=== PATIENT | female | born 1945 | race Caucasian/White ===

== ENCOUNTER → 2016-09-09 | Outpatient (CLI) | payer OTHER, BC ==
[2016-09-09 13:14] LABS: ALT/SGPT 43 U/L (12-78); BLOOD UREA NITROGEN 16 mg/dl (7-18); BUN/CREATININE RATIO 17.4 (10-20); CALCIUM 9.7 mg/dl (8.5-10.1); CARBON DIOXIDE 32 mmol/L (21-32); CHLORIDE 96 mmol/L (98-107); CHOLESTEROL 279 mg/dl (0-200); CREATININE 0.89 mg/dl (0.60-1.20); GLUCOSE 202 mg/dl (70-99); POTASSIUM 3.6 mmol/L (3.5-5.1); SODIUM 136 mmol/L (136-145)
[2016-09-09 13:17] LABS: CHOLESTEROL/HDL RATIO 6.8; HDL CHOLESTEROL 41 mg/dl; LDL CHOLESTEROL CALCULATED 188 mg/dl; TRIGLYCERIDES 250 mg/dl (0-150); VERY LOW DENSITY LIPOPROT CALC 50 mg/dl
[2016-09-09 13:55] LABS: ESTIMATED AVERAGE GLUCOSE 180 mg/dl; HA1C FLAG Normal (Normal)
== END | disposition home or self-care (01) ==
LOC: C.LABMFLN 09:57
PROVIDERS: ATTEND Family Medicine
DX: M19.90 Unspecified osteoarthritis, unspecified site (principal); E11.9 Type 2 diabetes mellitus without complications; I10 Essential (primary) hypertension; E78.5 Hyperlipidemia, unspecified

== ENCOUNTER → 2016-12-01 | Outpatient (CLI) | payer OTHER, BC ==
[2016-12-01 14:23] LABS: BLOOD UREA NITROGEN 12 mg/dl (7-18); BUN/CREATININE RATIO 13.4 (10-20); CALCIUM 9.7 mg/dl (8.5-10.1); CARBON DIOXIDE 32 mmol/L (21-32); CHLORIDE 99 mmol/L (98-107); CHOLESTEROL 204 mg/dl (0-200); CREATININE 0.89 mg/dl (0.60-1.20); GLUCOSE 119 mg/dl (70-99); POTASSIUM 3.6 mmol/L (3.5-5.1); SODIUM 136 mmol/L (136-145); TRIGLYCERIDES 210 mg/dl (0-150); URIC ACID 4.8 mg/dl (2.6-7.2); VERY LOW DENSITY LIPOPROT CALC 42 mg/dl
[2016-12-01 14:26] LABS: HDL CHOLESTEROL 41 mg/dl; LDL CHOLESTEROL CALCULATED 121 mg/dl
== END | disposition home or self-care (01) ==
LOC: C.LABMFLN 11:12
PROVIDERS: ATTEND Family Medicine
DX: M10.9 Gout, unspecified (principal)

== ENCOUNTER → 2017-05-03 | Outpatient (CLI) | payer OTHER, BC ==
[2017-05-03 13:24] LABS: ESTIMATED AVERAGE GLUCOSE 151 mg/dl; HA1C FLAG Normal (Normal)
[2017-05-03 13:28] LABS: ALT/SGPT 32 U/L (12-78); BLOOD UREA NITROGEN 16 mg/dl (7-18); BUN/CREATININE RATIO 22.2 (10-20); CALCIUM 8.9 mg/dl (8.5-10.1); CARBON DIOXIDE 33 mmol/L (21-32); CHLORIDE 98 mmol/L (98-107); CREATININE 0.74 mg/dl (0.60-1.20); GLUCOSE 150 mg/dl (70-99); POTASSIUM 3.2 mmol/L (3.5-5.1); SODIUM 135 mmol/L (136-145)
[2017-05-03 13:39] LABS: CHOLESTEROL 193 mg/dl (0-200); CHOLESTEROL/HDL RATIO 4.3; HDL CHOLESTEROL 45 mg/dl; LDL CHOLESTEROL CALCULATED 104 mg/dl; TRIGLYCERIDES 221 mg/dl (0-150); VERY LOW DENSITY LIPOPROT CALC 44 mg/dl
== END | disposition home or self-care (01) ==
LOC: C.LABMFLN 08:02
PROVIDERS: ATTEND Family Medicine
DX: E11.9 Type 2 diabetes mellitus without complications (principal); I10 Essential (primary) hypertension; E78.5 Hyperlipidemia, unspecified

== ENCOUNTER → 2017-12-28 | Outpatient (CLI) | payer OTHER, BC ==
--- NOTE | 2017-12-29 14:35 | MAMMOGRAPHY REPORT ---
BILATERAL DIGITAL SCREENING MAMMOGRAM TOMOSYNTHESIS WITH CAD: 12/28/2017 CLINICAL HISTORY: Routine screening. Patient has no complaints. TECHNIQUE: The study was acquired using full field digital technology and interpreted from soft copy. Breast tomosynthesis in addition to standard 2D mammography was performed. Current study was also ev aluated with a Computer Aided Detection (CAD) system. COMPARISON: Comparison is made to exams dated: 02/25/2016 mammogram - [facility], mammogram, 04/07/2010 ultrasound, 04/06/2010 mammogram, 04/01/2009 mammogram, and 03/27/2007 m ammogram. BREAST COMPOSITION: The tissue of both breasts is almost entirely fatty. FINDINGS: No suspicious masses, calcifications, or areas of architectural distortion are noted in either breast . There has been no significant interval change compared to prior exams. IMPRESSION: ACR BI-RADS CATEGORY 1: NEGATIVE There is no mammographic evidence of malignancy. A 1 year screening mammogram is recommended.( 019) The patient will receive written notification of the results. Some breast cancers are not detected with mammography. A negative mammographic report should not robb y biopsy if a clinically suggestive mass is present. Natty Villar M.D. /:12/28/2017 14:56:39 Meat Passer: Kim Stockton, [facility] letter sent: Normal 1/2 BI-RADS Code: ACR BI-RADS Category 1: Negative
== END | disposition home or self-care (01) ==
LOC: C.MAMM 13:12
PROVIDERS: ATTEND Family Medicine
DX: Z12.31 Encounter for screening mammogram for malignant neoplasm of breast (principal)

== ENCOUNTER 2019-11-13 05:54 | Inpatient (IN) ==
[2019-11-13] MEDS ORDERED: MECLIZINE HCL 25 MG TAB PO STA (06:01)
[2019-11-13] MEDS ORDERED: ONDANSETRON INJ 2 MG/ML 2 ML VIAL IV STA (06:01)
--- NOTE | 2019-11-13 06:05 | Emergency Department Note ---
History of Present Illness General Chief complaint: Vertigo Stated complaint: dizzy Time Seen by Provider: 11/13/19 05:54 Source: patient Mode of arrival: EMS Limitations: no limitations History of Present Illness Provider complaint: Dizziness, vomiting Onset (ago): hour(s) 2 Location: head Radiation: non-radiation Severity: moderate Associated symptoms: + nausea/vomiting This is a 74-year-old female brought in by EMS from home. Patient states she got up to use the restroom at 4 AM and felt dizzy, with spinning. Patient sat back down immediately, denies trauma. Patient states she became nauseated and did vomit. Patient denies fevers or chills, headache. No prior diagnosis of vertigo. Patient states her blood sugar levels have been high. Patient denies any change in medications. No other dietary changes. No change in bowel or bladder function. Patient denies any recent illness. No known contact with any coronavirus positive individuals. Patient denies any falls or trauma both prior to the event as well as with the onset of dizziness tonight. Patient denies any recent sinusitis or URI symptoms. No recent pain in the ears or tinnitus. Patient also denies palpitations, chest pain, or trouble breathing. Pt seen during a time of high acuity and national emergency pandemic while wearing PPE. Home Medications Home Medications Medication Instructions Recorded Confirmed Type coenzyme Q10 100 mg capsule 100 mg PO BID #180 cap 11/06/18 11/13/19 Rx aspirin 81 mg tablet,delayed 81 mg PO DAILY tab 01/21/19 11/13/19 History release glimepiride 4 mg tablet 4 mg PO QAM #90 tab 02/05/19 11/13/19 Rx lisinopril 40 mg tablet 40 mg PO DAILY #90 tab 03/20/19 11/13/19 Rx cholecalciferol (vitamin D3) 25 2,000 units PO DAILY cap 05/06/19 11/13/19 History mcg (1,000 unit) capsule amlodipine 10 mg tablet 10 mg PO .evening #90 tab 07/23/19 11/13/19 Rx blood sugar diagnostic #100 ea 08/09/19 Rx sitagliptin 100 mg tablet 100 mg PO DAILY #90 tab 08/26/19 11/13/19 Rx chlorthalidone 25 mg tablet 25 mg PO DAILY #90 tab 11/04/19 11/13/19 Rx pravastatin 80 mg tablet 80 mg PO DAILY #30 tab 11/11/19 11/13/19 Rx meclizine 25 mg PO TID PRN #20 tab 11/13/19 Rx metformin 1,000 mg PO BID 11/13/19 11/13/19 History metoprolol tartrate 75 mg PO BID 11/13/19 11/13/19 History polyethylene glycol 3350 [Miralax] 17 gm PO UD PRN 11/13/19 11/13/19 History primidone 50 mg PO BID 11/13/19 11/13/19 History Allergies Allergy/AdvReac Type Severity Reaction Status Date / Time No Known Drug Allergies Allergy Unknown Verified 11/13/19 06:06 Past Med/Surg History Medical History Benign essential hypertension Chronic constipation (Inactive) Diabetes mellitus, type 2 Essential tremor (Acute) on primidone Gout no meds Hyperlipidemia Myalgia Osteoarthritis Vitamin D deficiency Surgical History History of colonoscopy History of right knee joint replacement History of tonsillectomy and adenoidectomy History of tooth extraction Ingrown toenail of right foot removal Social History (Updated 11/13/19 @ 10:43 by Hiro Nuñez) Preferred Language: Syriac Communication Ability: Effective Project Estimator Required: No Beliefs That Will Affect Care: None marital status: Current Living Situation: Spouse current occupational status: retired current occupation: did [employer] work in [employer] for 30 years Other Information That Helps Us Care for You: No other: 2 children Feels Safe at Home: Yes Safety Concerns: Feels Safe At This Time Smoking Status: Never smoker Second Hand Exposure: Yes ( smoked/father smoked) ; Hx Alcohol Use: No Hx Substance Use: No Review of Systems See HPI for pertinent positives & negatives. and A total of 10 systems reviewed and were otherwise negative Physical Exam Vital Signs Vital Signs - 24 hr 11/13/19 06:08 11/13/19 06:12 11/13/19 06:17 Temperature 37.2 C Temperature Source Oral Pulse Rate 89 Pulse Rate [Apical] 78 Pulse Rhythm [Apical] Regular Respiratory Rate 20 14 Respiratory Effort / Characteristics Non-Labored Respiratory Depth Normal Normal Blood Pressure 170/85 H Blood Pressure [Right Arm] 153/93 H Blood Pressure Mean 113 Blood Pressure Mean [Right Arm] 113 Pulse Oximetry 97 97 93 Oxygen Delivery Method Room Air Room Air Room Air Oxygen Flow Rate Sepsis Recent Fever Within 48 Hours No Sepsis Action Taken by Nursing No Action Required 11/13/19 06:33 11/13/19 07:07 11/13/19 08:17 Temperature Temperature Source Pulse Rate Pulse Rate [Apical] 79 75 80 Pulse Rhythm [Apical] Respiratory Rate 20 18 18 Respiratory Effort / Characteristics Non-Labored Spontaneous Respiratory Depth Normal Normal Blood Pressure Blood Pressure [Right Arm] 165/77 H 162/86 H 158/80 H Blood Pressure Mean Blood Pressure Mean [Right Arm] 106 111 106 Pulse Oximetry 97 99 93 Oxygen Delivery Method Nasal Cannula Nasal Cannula Room Air Oxygen Flow Rate 2 2 Sepsis Recent Fever Within 48 Hours Sepsis Action Taken by Nursing 11/13/19 09:11 11/13/19 10:11 Temperature Temperature Source Pulse Rate Pulse Rate [Apical] 86 85 Pulse Rhythm [Apical] Respiratory Rate 20 18 Respiratory Effort / Characteristics Non-Labored Spontaneous Respiratory Depth Normal Blood Pressure Blood Pressure [Right Arm] 167/85 H 162/84 H Blood Pressure Mean Blood Pressure Mean [Right Arm] 112 110 Pulse Oximetry 96 95 Oxygen Delivery Method Nasal Cannula Nasal Cannula Oxygen Flow Rate 2 2 Sepsis Recent Fever Within 48 Hours Sepsis Action Taken by Nursing GENERAL: alert, ill appearing, well nourished, no distress, non-toxic EYE EXAM: normal conjunctiva, PERRL and EOM's grossly intact, nystagmus OROPHARYNX: no exudate, no erythema, lips, buccal mucosa, and tongue normal and mucous membranes are moist NECK: supple, no nuchal rigidity, no adenopathy, non-tender LUNGS: Clear to auscultation. Normal chest wall mechanics, no w/r/r HEART: no murmurs, S1 normal and S2 normal ABDOMEN: abdomen soft, non-tender, normo-active bowel sounds, no masses, no rebound or guarding. BACK: Back is symmetrical on inspection and there is no deformity, no midline tenderness, no CVA tenderness. SKIN: no rashes and no bruising UPPER EXTREMITIES: upper extremities are grossly normal. FROM, nml pulses b/l. LOWER EXTREMITIES: No pitting edema. FROM, nml pulses b/l. NEURO EXAM: Normal sensorium, cranial nerves II-XII grossly intact, normal speech, no gross weakness of arms, no gross weakness of legs. Gross sensation intact. Course Course 0750: Patient reports feeling improved, able to ambulate to the bathroom with a steady gait. 0810: Patient updated on results. Awaiting completed mag infusion and repeat trop. If patient continues to be well-appearing, will plan for discharge with prescription for meclizine. 0827: Patient signed out to Dr. Contreras to follow-up repeat troponin. Patient's electrolytes were repleted. Patient was made aware of hyperglycemia. Patient continues to have a nonfocal neuro exam at bedside and states she feels improved after dose of meclizine. I feel that if second troponin is negative, a nd patient continues to be well-appearing and is able to ambulate with a steady gait and tolerate p.o., patient could be safely discharged. Administered Medications Acetaminophen (Tylenol) 650 mg PO Q4H PRN PRN Reason: Pain or Fever Stop: 12/13/19 13:28 Last Admin: 11/13/19 19:16 Dose: 650 mg Documented by: [id number] Amlodipine Besylate (Norvasc) 10 mg PO QPM [facility] Stop: 12/13/19 20:59 Last Admin: 11/13/19 21:43 Dose: 10 mg Documented by: [id number] Enoxaparin Sodium (Lovenox) 40 mg SQ DAILY@1400 [facility] Stop: 12/13/19 14:29 Last Admin: 11/13/19 15:37 Dose: 40 mg Documented by: [id number] Potassium Chloride/Sodium Chloride (Normal Saline W/20 Meq Kcl) 20 meq in 1,000 mls @ 100 mls/hr IV .Q10H [facility] Stop: 11/13/19 23:59 Last Admin: 11/13/19 14:38 Dose: 100 mls/hr Documented by: [id number] Insulin Aspart (Novolog Flexpen) 0 units SC ACHS [facility] Stop: 12/13/19 13:28 Last Admin: 11/13/19 21:41 Dose: Not Given Documented by: [id number] Cosigned by: [id number] Admin: 11/13/19 17:12 Dose: 3 units Documented by: [id number] Cosigned by: [id number] Admin: 11/13/19 14:29 Dose: 3 units Documented by: [id number] Cosigned by: [id number] Insulin Glargine (Lantus Solostar Pen) 10 units SC DAILY [facility] Stop: 12/13/19 13:59 Last Admin: 11/13/19 14:30 Dose: 10 units Documented by: [id number] Cosigned by: [id number] Metoprolol Tartrate (Lopressor) 75 mg PO BID [facility] Stop: 12/13/19 20:59 Last Admin: 11/13/19 21:43 Dose: 75 mg Documented by: [id number] Primidone (Primidone) 50 mg PO BID [facility] Stop: 12/13/19 20:59 Last Admin: 11/13/19 21:43 Dose: 50 mg Documented by: [id number] Scopolamine (Transderm-Scop) 1.5 mg TD Q72H [facility] Stop: 12/13/19 17:44 Last Admin: 11/13/19 19:16 Dose: 1.5 mg Documented by: [id number] Discontinued Medications Sodium Chloride (Nss 1000ml) 1,000 mls @ 250 mls/hr IV .Q4H [facility] Stop: 12/13/19 06:14 Last Infusion: 11/13/19 13:32 Dose: 0 mls/hr Documented by: [id number] Admin: 11/13/19 10:15 Dose: 250 mls/hr Documented by: [id number] Infusion: 11/13/19 10:15 Dose: 0 mls/hr Documented by: [id number] Admin: 11/13/19 06:15 Dose: 250 mls/hr Documented by: [id number] Magnesium Sulfate/Dextrose (Magnesium Sulfate / D5w) 1 gm in 100 mls @ 100 mls/hr IV Q1H [facility] Stop: 11/13/19 08:47 Last Infusion: 11/13/19 09:37 Dose: 0 mls/hr Documented by: [id number] Admin: 11/13/19 08:13 Dose: 100 mls/hr Documented by: [id number] Infusion: 11/13/19 08:03 Dose: 0 mls/hr Documented by: [id number] Admin: 11/13/19 07:03 Dose: 100 mls/hr Documented by: [id number] Ioversol (Optiray 320 125ml) 120 ml IV ONCE PRN PRN Reason: Interaction Checking Stop: 11/17/19 07:27 Last Admin: 11/13/19 07:28 Dose: 120 ml Documented by: [id number] Lorazepam (Ativan) 0.5 mg PO NOW STA Stop: 11/13/19 13:30 Last Admin: 11/13/19 14:44 Dose: 0.5 mg Documented by: [id number] Meclizine HCl (Antivert) 25 mg PO NOW STA Stop: 11/13/19 06:02 Last Admin: 11/13/19 06:16 Dose: 25 mg Documented by: [id number] Meclizine HCl (Antivert 25mg Home Pack) 1 homepack PO UD ONE Stop: 11/13/19 08:00 Last Admin: 11/13/19 08:12 Dose: 1 homepack Documented by: [id number] Meclizine HCl (Antivert) 12.5 mg PO Q6H [facility] Stop: 12/13/19 11:59 Last Admin: 11/13/19 19:16 Dose: 12.5 mg Documented by: [id number] Admin: 11/13/19 15:37 Dose: 12.5 mg Documented by: [id number] Ondansetron HCl (Zofran) 4 mg IV NOW STA Stop: 11/13/19 06:02 Last Admin: 11/13/19 06:16 Dose: 4 mg Documented by: [id number] Ondansetron HCl (Zofran Odt 4mg Home Pack) 1 homepack PO NOW ONE Stop: 11/13/19 08:00 Last Admin: 11/13/19 08:12 Dose: 1 homepack Documented by: [id number] Potassium Chloride (Klor-Con M20) 40 meq PO NOW STA Stop: 11/13/19 06:49 Last Admin: 11/13/19 07:03 Dose: 40 meq Documented by: [id number] Medical Decision Making Differential Diagnosis Differential diagnosis includes etiologies such as benign positional vertigo, dehydration, hypovolemia, anemia, tumor, infection, hypoglycemia, electrolyte abnormalities, cardiac sources, intracerebral event, toxicologic, neurologic, as well as others were entertained. Medical Records Attestation: I reviewed the patient's medical records. Home Medications Current Medication List: was personally reviewed by me Laboratory Data Attestation: I reviewed the patient's lab results. Result diagrams: 11/13/19 06:08 11/13/19 06:08 Lab Results 11/13/19 11/13/19 11/13/19 Range/Units 06:08 06:08 06:08 WBC 11.01 H (4.8-10.8) K/uL RBC 4.71 (4.2-5.4) M/uL Hgb 15.3 (12.0-16.0) g/dL Hct 44.3 (37-47) % MCV 94.1 (80-100) fL MCH 32.5 (25-34) pg MCHC 34.5 (32-36) g/dL RDW Std Deviation 44.4 (36.4-46.3) fL RDW Coeff of Stacy 12.9 (11.5-14.5) % Plt Count 276 (130-400) K/uL MPV 8.8 (7.4-10.4) fL Immature Gran % (Auto) 0.5 % Neut % (Auto) 76.5 % Lymph % (Auto) 14.8 % Barren % (Auto) 6.5 % Eos % (Auto) 1.5 % Baso % (Auto) 0.2 % Immature Gran # (Auto) 0.06 H (0.00-0.02) K/uL Neut # (Auto) 8.42 H (1.4-6.5) K/uL Lymph # (Auto) 1.63 (1.2-3.4) K/uL Barren # (Auto) 0.72 H (0.11-0.59) K/uL Eos # (Auto) 0.16 (0-0.5) K/uL Baso # (Auto) 0.02 (0-0.2) K/uL PT 10.3 (9.0-12.0) Seconds INR 1.0 (0.9-1.1) Sodium 137 (136-145) mmol/L Potassium 3.2 L (3.5-5.1) mmol/L Chloride 99 (98-107) mmol/L Carbon Dioxide 30 (21-32) mmol/L Anion Gap 8.0 (3-11) BUN 16 (7-18) mg/dl Creatinine 0.91 (0.6-1.2) mg/dl Est Cr Clr Drug Dosing 68.2 ml/min Est GFR ( Amer) 73.1 Est GFR (Non-Af Amer) 63.0 BUN/Creatinine Ratio 17.5 (10-20) Glucose 218 H (70-99) mg/dl Calcium 9.2 (8.5-10.1) mg/dl Magnesium 1.4 L (1.8-2.4) mg/dl Total Bilirubin 0.4 (0.2-1) mg/dl AST 36 (15-37) U/L ALT 60 (12-78) U/L Alkaline Phosphatase 53 (45-117) U/L Troponin I < 0.015 (0-0.045) ng/ml Total Protein 7.7 (6.4-8.2) gm/dl Albumin 3.3 L (3.4-5.0) gm/dl Globulin 4.4 H (2.5-4.0) gm/dl Albumin/Globulin Ratio 0.7 L (0.9-2) Lipase 223 (73-393) U/L TSH 3.950 (0.300-4.500) uIu/ml Urine Color Urine Appearance (Clear) Urine pH (4.5-7.5) Ur Specific [place] (1.000-1.030) Urine Protein (Negative) Urine Glucose (UA) (Negative) Urine Ketones (Negative) Urine Blood (Negative) Urine Nitrite (Negative) Urine Bilirubin (Negative) Urine Urobilinogen (Negative) Ur Leukocyte Esterase (Negative) Urine WBC (Auto) (0-5) /hpf Urine RBC (Auto) (0-4) /hpf U Hyaline Cast (Auto) (0-5) /lpf U Epithel Cells (Auto) (0-5) /lpf Urine Bacteria (Auto) (Negative) 11/13/19 11/13/19 Range/Units 07:40 08:34 WBC (4.8-10.8) K/uL RBC (4.2-5.4) M/uL Hgb (12.0-16.0) g/dL Hct (37-47) % MCV (80-100) fL MCH (25-34) pg MCHC (32-36) g/dL RDW Std Deviation (36.4-46.3) fL RDW Coeff of Stacy (11.5-14.5) % Plt Count (130-400) K/uL MPV (7.4-10.4) fL Immature Gran % (Auto) % Neut % (Auto) % Lymph % (Auto) % Barren % (Auto) % Eos % (Auto) % Baso % (Auto) % Immature Gran # (Auto) (0.00-0.02) K/uL Neut # (Auto) (1.4-6.5) K/uL Lymph # (Auto) (1.2-3.4) K/uL Barren # (Auto) (0.11-0.59) K/uL Eos # (Auto) (0-0.5) K/uL Baso # (Auto) (0-0.2) K/uL PT (9.0-12.0) Seconds INR (0.9-1.1) Sodium (136-145) mmol/L Potassium (3.5-5.1) mmol/L Chloride (98-107) mmol/L Carbon Dioxide (21-32) mmol/L Anion Gap (3-11) BUN (7-18) mg/dl Creatinine (0.6-1.2) mg/dl Est Cr Clr Drug Dosing ml/min Est GFR ( Amer) Est GFR (Non-Af Amer) BUN/Creatinine Ratio (10-20) Glucose (70-99) mg/dl Calcium (8.5-10.1) mg/dl Magnesium (1.8-2.4) mg/dl Total Bilirubin (0.2-1) mg/dl AST (15-37) U/L ALT (12-78) U/L Alkaline Phosphatase (45-117) U/L Troponin I < 0.015 (0-0.045) ng/ml Total Protein (6.4-8.2) gm/dl Albumin (3.4-5.0) gm/dl Globulin (2.5-4.0) gm/dl Albumin/Globulin Ratio (0.9-2) Lipase (73-393) U/L TSH (0.300-4.500) uIu/ml Urine Color Yellow Urine Appearance Clear (Clear) Urine pH 6.0 (4.5-7.5) Ur Specific [place] 1.019 (1.000-1.030) Urine Protein 1+ H (Negative) Urine Glucose (UA) 2+ H (Negative) Urine Ketones 1+ H (Negative) Urine Blood Trace H (Negative) Urine Nitrite Negative (Negative) Urine Bilirubin Negative (Negative) Urine Urobilinogen Negative (Negative) Ur Leukocyte Esterase Trace H (Negative) Urine WBC (Auto) 1-5 (0-5) /hpf Urine RBC (Auto) 0-4 (0-4) /hpf U Hyaline Cast (Auto) 0 (0-5) /lpf U Epithel Cells (Auto) 5-10 H (0-5) /lpf Urine Bacteria (Auto) Negative (Negative) Imaging Data Radiologist's Impression: UNENHANCED CT OF THE BRAIN; CT ANGIOGRAM OF THE BRAIN; CT ANGIOGRAM OF THE NECK CLINICAL HISTORY: Vomiting. Dizziness. COMPARISON STUDY: CT of the brain dated 05/20/2018. TECHNIQUE: Unenhanced axial CT scan of the brain is performed. Subsequently, following the IV administration of 120 of Optiray 320, CT angiogram of the head and neck was performed from the aortic arch to the vertex. Images are reviewed in the axial, sagittal, and coronal planes. 3-D MIPS images are created and assessed. IV contrast was administered without complication. All measurements were calculated based on NASCET criteria. A dose lowering technique was utilized adhering to the principles of ALARA. CT DOSE: 1184.88 mGy.cm FINDINGS: Brain parenchyma: An 11 mm calcification within the right parisi radiata is unchanged from 2018. There is age-related involutional change noting minimal subcortical and periventricular microangiopathic disease. There is no hemorrhage, mass effect, or evidence of acute territorial ischemia by CT criteria. There is no evidence of enhancing mass lesion on the angiogram phase images. The ventricles, sulci, and cisterns are normal in configuration. [place]- white matter differentiation is preserved. No extra-axial fluid collection is seen. Thoracic aorta: There is mild atherosclerotic calcification of the thoracic aorta. Visualized portions of the thoracic aorta are normal in caliber. The aortic arch demonstrates bovine variant anatomy. Right carotid arterial system: The right common carotid artery is widely patent, as are the right internal and external carotid arteries. Mild plaque is noted in the carotid bulb. There is tortuosity and mild ectasia of the distal internal carotid artery which measures up to 7 mm. Left carotid arterial system: The left common carotid artery is widely patent, as are the left internal and external carotid arteries. Mild plaque is noted in the carotid bulb. Vertebral arteries: The vertebral arteries are widely patent bilaterally and codominant. Subclavian arteries: Widely patent bilaterally. Intracranial vasculature: There is atherosclerotic calcification of the cavernous carotid and vertebral arteries. The internal carotid arteries are patent at the skull base, as are the anterior and middle cerebral arteries bilaterally. The vertebrobasilar system and posterior cerebral arteries are widely patent. The vertebral arteries are codominant. There is no aneurysm, high-grade stenosis, or focal vessel cut off seen throughout the intracranial circulation. Jugular veins: Patent bilaterally. Dural sinuses: Patent. Lung apices: Partially visualized upper lobe lung parenchyma appears clear. Soft tissues: The visualized pharyngeal soft tissues are normal in appearance noting angiographic phase technique. The oropharyngeal airway appears widely patent. There is a 10 mm nodule in the left lobe of the thyroid gland. The salivary glands are normal in appearance. No cervical lymphadenopathy is seen. Skeletal structures: The skeletal structures are osteopenic. The calvarium appears intact. The cervical spine is maintained noting multilevel spondylosis. No lytic or blastic lesion is seen. Sinuses and mastoids: The paranasal sinuses are clear. The mastoid air cells are well pneumatized. IMPRESSION: 1. There is no hemorrhage, mass effect, or evidence of acute territorial ischemia by CT criteria. 2. There is tortuosity and mild ectasia of the distal cervical portion of the right internal carotid artery. This is of doubtful significance. 3. Otherwise unremarkable CT angiogram of the neck. The carotid arteries are wid david patent bilaterally. 4. Unremarkable CT angiogram of the brain. ACT 112: Negative or not required by law. Electronically signed by: Yves Topete M.D. 11/13/2019 7:49 AM ECG Data Attestation: I personally reviewed and interpreted this ECG as follows: Indication: + other (dizzy) Rate (beats per minute): 86 Rhythm: + normal sinus ECG Intervals/blocks: + Normal QRS and + Normal QT ECG [place]: + Normal ECG ST segments: + Normal ST segments ECG Findings: + PVCs Blood Pressure Blood Pressure Findings: Elevated blood pressure Blood Pressure Disposition: Referred to patients primary care provider MANDIE To Patient here after abrupt onset of dizziness with nausea vomiting at home. No prior history of vertigo. Patient had a normal and nonfocal neuro exam at bedside despite persistent dizziness. No nystagmus noted. Patient had no other complaint of chest pain, palpitations, or trouble breathing. Patient was hemodynamically stable throughout. No ectopy or dysrhythmia noted on telemetry. Labs drawn and sent and initial results reassuring. Patient sent for CT imaging due to age, risk factors, and no prior vertigo diagnosis. CT imaging reassuring also. Patient continued to have a normal and nonfocal neuro exam at bedside despite complaints of dizziness. Patient treated with Zofran as well as meclizine. Patient's low potassium and magnesium were repleted. Patient signed out awaiting repeat troponin and repeat evaluation as a precaution. I suspected of troponin negative and patient continued to be well-appearing with a steady gait and tolerating p.o. she could be safely discharged. I did discuss with her close follow-up with her family doctor as a precaution, use of the meclizine at home, symptoms to watch and return for, I encouraged adherence to a diabetic diet and close follow-up regarding her hyperglycemia. No evidence of DKA or HHNK. At this time I do not suspect CVA, dissection, occult infectious etiology, cerebellar infarct/bleed/mass, ACS, dysrhythmia, aneurysm. An order was placed for continuous cardiac monitoring. The monitor shows a rate of _90 with normal sinus rhythm. Impression & Plan Dizziness, Nausea & vomiting, Hypomagnesemia, Hypokalemia Discharge Plan Visit Data *Final* Discharge Date/Time: 11/13/19 12:54 Chief Complaint: Vertigo Stated Complaint: dizzy Other Complaint: Vomiting ED Provider: Edgar Contreras Discharge Problem: Dizziness, Nausea & vomiting, Hypomagnesemia, Hypokalemia Patient Disposition: Admitted As Inpatient Condition: Good Discharge Instructions Interventions: ED Discharge Assessment Last Done: 11/13/19 12:54 Discharge Problem: Nausea & vomiting Qualifiers: Vomiting type: unspecified Vomiting Intractability: non-intractable Qualified Code(s): R11.2 - Nausea with vomiting, unspecified
[2019-11-13] MEDS: SODIUM CHLORIDE 0.9% 1000ML 1,000 ML IV SCH ×2 (06:15→10:15)
[2019-11-13 06:16] LABS: Basophils # (auto) 0.02 K/uL (0-0.2); Basophils % (auto) 0.2 %; Eosinophils # (auto) 0.16 K/uL (0-0.5); Eosinophils % (auto) 1.5 %; Hematocrit (blood only) 44.3 % (37-47); Hemoglobin 15.3 g/dL (12.0-16.0); Immature Granulocytes # (auto) 0.06 K/uL (0.00-0.02); Immature Granulocytes % (auto) 0.5 %; Lymphocytes # (auto) 1.63 K/uL (1.2-3.4); Lymphocytes % (auto) 14.8 %; Mean Corpuscular Hemoglobin 32.5 pg (25-34); Mean Corpuscular Hgb Conc 34.5 g/dL (32-36); Mean Corpuscular Volume 94.1 fL (80-100); Mean Platelet Volume 8.8 fL (7.4-10.4); Monocytes # (auto) 0.72 K/uL (0.11-0.59); Monocytes % (auto) 6.5 %; Neutrophils # (auto) 8.42 K/uL (1.4-6.5); Neutrophils % (auto) 76.5 %; Platelet Count 276 K/uL (130-400); RDW Coefficient of Variation 12.9 % (11.5-14.5); RDW Standard Deviation 44.4 fL (36.4-46.3); Red Blood Count 4.71 M/uL (4.2-5.4); White Blood Count 11.01 K/uL (4.8-10.8)
[2019-11-13 06:32] LABS: Prothrombin Time 10.3 Seconds (9.0-12.0)
[2019-11-13 06:33] LABS: Alanine Aminotransferase 60 U/L (12-78); Albumin Level 3.3 gm/dl (3.4-5.0); Aspartate Aminotransferase 36 U/L (15-37); BUN Creatinine Ratio 17.5 (10-20); Blood Urea Nitrogen 16 mg/dl (7-18); Calcium 9.2 mg/dl (8.5-10.1); Carbon Dioxide 30 mmol/L (21-32); Chloride 99 mmol/L (98-107); Creatinine Clr Calc Pharmacy 68.2 ml/min; Est GFR (African American) 73.1; Glucose 218 mg/dl (70-99); Lipase 223 U/L (73-393); Magnesium 1.4 mg/dl (1.8-2.4); Potassium 3.2 mmol/L (3.5-5.1); Sodium 137 mmol/L (136-145)
[2019-11-13 06:44] LABS: Albumin Globulin Ratio 0.7 (0.9-2); Alkaline Phosphatase 53 U/L (45-117); Bilirubin,Total 0.4 mg/dl (0.2-1); Globulin 4.4 gm/dl (2.5-4.0); Total Protein 7.7 gm/dl (6.4-8.2); Troponin I < 0.015 ng/ml (0-0.045)
[2019-11-13] MEDS ORDERED: POTASSIUM CHLORIDE 20 MEQ TABCR PO STA (06:48)
[2019-11-13] MEDS: MAGNESIUM SULFATE / D5W 1 GM/100 ML BAG IV SCH ×2 (07:03→08:13)
[2019-11-13] MEDS ORDERED: OPTIRAY 320 125ml IV PRN (07:28)
--- NOTE | 2019-11-13 07:50 | CT Scan Report ---
UNENHANCED CT OF THE BRAIN; CT ANGIOGRAM OF THE BRAIN; CT ANGIOGRAM OF THE NECK CLINICAL HISTORY: Vomiting. Dizziness. COMPARISON STUDY: CT of the brain dated 05/20/2018. TECHNIQUE: Unenhanced axial CT scan of the brain is performed. Subsequently, following the IV adminis tration of 120 of [address] 320, CT angiogram of the head and neck was performed from the aortic arch t o the vertex. Images are reviewed in the axial, sagittal, and coronal planes. 3-D MIPS images are cre ated and assessed. IV contrast was administered without complication. All measurements were calculate d based on NASCET criteria. A dose lowering technique was utilized adhering to the principles of ALA RA. CT DOSE: 1184.88 mGy.cm FINDINGS: Brain parenchyma: An 11 mm calcification within the right parisi radiata is unchanged from 2018. Ther e is age-related involutional change noting minimal subcortical and periventricular microangiopathic disease. There is no hemorrhage, mass effect, or evidence of acute territorial ischemia by CT criteri a. There is no evidence of enhancing mass lesion on the angiogram phase images. The ventricles, sulci , and cisterns are normal in configuration. Villeda-white matter differentiation is preserved. No extra- axial fluid collection is seen. Thoracic aorta: There is mild atherosclerotic calcification of the thoracic aorta. Visualized portion s of the thoracic aorta are normal in caliber. The aortic arch demonstrates bovine variant anatomy. Right carotid arterial system: The right common carotid artery is widely patent, as are the right int ernal and external carotid arteries. Mild plaque is noted in the carotid bulb. There is tortuosity an d mild ectasia of the distal internal carotid artery which measures up to 7 mm. Left carotid arterial system: The left common carotid artery is widely patent, as are the left graphic design intern al and external carotid arteries. Mild plaque is noted in the carotid bulb. Vertebral arteries: The vertebral arteries are widely patent bilaterally and codominant. Subclavian arteries: Widely patent bilaterally. Intracranial vasculature: There is atherosclerotic calcification of the cavernous carotid and vertebr al arteries. The internal carotid arteries are patent at the skull base, as are the anterior and midd le cerebral arteries bilaterally. The vertebrobasilar system and posterior cerebral arteries are wide ly patent. The vertebral arteries are codominant. There is no aneurysm, high-grade stenosis, or focal vessel cut off seen throughout the intracranial circulation. Jugular veins: Patent bilaterally. Dural sinuses: Patent. Lung apices: Partially visualized upper lobe lung parenchyma appears clear. Soft tissues: The visualized pharyngeal soft tissues are normal in appearance noting angiographic pha se technique. The oropharyngeal airway appears widely patent. There is a 10 mm nodule in the left lob e of the thyroid gland. The salivary glands are normal in appearance. No cervical lymphadenopathy is seen. Skeletal structures: The skeletal structures are osteopenic. The calvarium appears intact. The cervic al spine is maintained noting multilevel spondylosis. No lytic or blastic lesion is seen. Sinuses and mastoids: The paranasal sinuses are clear. The mastoid air cells are well pneumatized. IMPRESSION: 1. There is no hemorrhage, mass effect, or evidence of acute territorial ischemia by CT criteria. 2. There is tortuosity and mild ectasia of the distal cervical portion of the right internal carotid artery. This is of doubtful significance. 3. Otherwise unremarkable CT angiogram of the neck. The carotid arteries are widely patent bilaterall y. 4. Unremarkable CT angiogram of the brain. ACT 112: Negative or not required by law. Electronically signed by: Yves Topete M.D. 11/13/2019 7:49 AM
[2019-11-13] MEDS ORDERED: MECLIZINE HCL 25MG HOME PACK PO ONE (07:59)
[2019-11-13] MEDS ORDERED: ONDANSETRON HOME PACK 4MG OD TAB PO ONE (07:59)
[2019-11-13 08:07] LABS: Appearance Urine Clear (Clear); Bacteria Urine Automated Negative (Negative); Bilirubin Urine Negative (Negative); Blood Urine Trace (Negative); Cast Urine Automated 0 /lpf (0-5); Color Urine Yellow; Glucose Urine UA 2+ (Negative); Ketones Urine 1+ (Negative); Leukocyte Esterase Urine Trace (Negative); Nitrite Urine Negative (Negative); Protein Urine 1+ (Negative); RBC Urine Automated 0-4 /hpf (0-4); Specific Gravity Urine 1.019 (1.000-1.030); Urobilinogen Urine Negative (Negative)
--- NOTE | 2019-11-13 08:20 | Emergency Department Note ---
ED Visit Note Received patient in signout. History and Physical verfied by me. Pt is awaiting repeat troponin. Upon my reexamination patient is unable to ambulate due to dizziness. She was discussed with the hospitalist staff. . : Nausea & vomiting Qualifiers: Vomiting type: unspecified Vomiting Intractability: non-intractable Qualified Code(s): R11.2 - Nausea with vomiting, unspecified
--- NOTE | 2019-11-13 10:29 | History & Physical Report ---
Date of Service November 13, 2019 Assessment & Plan (1) Vertigo: Neurological exam is normal. Visual munoz are full, no ataxia of upper extremities or lower extremities with maneuvers. Minimal horizontal nystagmus. CT head and CTA head/neck negative. MRI brain to be obtained to rule out stroke to be complete. If negative then this is likely BPV or acute labrynthitis. Will place on scheduled meclizine 12.5mg q6h. If symptoms are refractory could trial scopalamine patch or ativan. PT consult for vestibular evaluation. Provide NS hydration. Place on telemetry. (2) Hypokalemia: likely 2nd to chronic diuretic usage. replace PO and IV. BMP in am. replace low mag. (3) Hypomagnesemia: likely 2nd to diuretic usage. s/p 2 grams mag sulfate in ER. recheck mag level in am. (4) Diabetes: hold oral agents except for januvia. place on lantus 10 units daily. consider giving this at discharge as patient's DM has been uncontrolled chronically (a1c 7.6% in September). novolog - correction factor 30; carb ratio 1:10. DM diet; BSGs ac/hs. (5) Hypercholesterolemia: LDL 103 in 04/2019. cont pravastatin. (6) Benign essential hypertension: while awaiting MRI brain allow some permissiveness in BP. if MRI is negative for stroke then resume all home BP meds. (7) Essential tremor: continue primidone. (8) Hypoxia: intermittently noted in ER, especially when asleep - MARLENE? in light of mild leukocytosis will check cxr to ensure no lung process. outpatient sleep study at minimum. (9) DVT prophylaxis: lovenox once daily place on observation status for now diet - allow full liquids in light of recent nausea/emesis; advance as tolerated IV fluids with NS History of Present Illness Chief Complaint: vertigo Primary Care Provider: Pool Calixto MD 74yo female with history of HTN and T2DM who presents with acute onset of vertigo beginning at 0430 this am. She woke up to go to bathroom and as soon as she stood up the room began to spin. The vertigo episode lasted a few minutes. Had nausea and vomiting with the vertigo. Sudden movements of her head brings on the vertigo. No visual field cuts. With attempts at walking she would feel like she was going to fall to the right. Over the last few days she has felt well. No fevers, chills, cough, congestion, nasal discharge, sore throat, loss of taste or smell, or sick contacts. No travel. Allergies Allergy/AdvReac Type Severity Reaction Status Date / Time No Known Drug Allergies Allergy Unknown Verified 11/13/19 06:06 Home Medications Home Medications Medication Instructions Recorded Confirmed Type coenzyme Q10 100 mg capsule 100 mg PO BID #180 cap 11/06/18 11/13/19 Rx aspirin 81 mg tablet,delayed 81 mg PO DAILY tab 01/21/19 11/13/19 History release glimepiride 4 mg tablet 4 mg PO QAM #90 tab 02/05/19 11/13/19 Rx lisinopril 40 mg tablet 40 mg PO DAILY #90 tab 03/20/19 11/13/19 Rx cholecalciferol (vitamin D3) 25 2,000 units PO DAILY cap 05/06/19 11/13/19 History mcg (1,000 unit) capsule amlodipine 10 mg tablet 10 mg PO .evening #90 tab 07/23/19 11/13/19 Rx blood sugar diagnostic #100 ea 08/09/19 Rx sitagliptin 100 mg tablet 100 mg PO DAILY #90 tab 08/26/19 11/13/19 Rx chlorthalidone 25 mg tablet 25 mg PO DAILY #90 tab 11/04/19 11/13/19 Rx pravastatin 80 mg tablet 80 mg PO DAILY #30 tab 11/11/19 11/13/19 Rx meclizine 25 mg PO TID PRN #20 tab 11/13/19 Rx metformin 1,000 mg PO BID 11/13/19 11/13/19 History metoprolol tartrate 75 mg PO BID 11/13/19 11/13/19 History polyethylene glycol 3350 [Miralax] 17 gm PO UD PRN 11/13/19 11/13/19 History primidone 50 mg PO BID 11/13/19 11/13/19 History Past Med/Surg History Medical History Benign essential hypertension Chronic constipation (Inactive) Diabetes mellitus, type 2 Essential tremor (Acute) on primidone Gout no meds Hyperlipidemia Myalgia Osteoarthritis Vitamin D deficiency Surgical History History of colonoscopy History of right knee joint replacement History of tonsillectomy and adenoidectomy History of tooth extraction Ingrown toenail of right foot removal Family History (Updated 11/13/19 @ 10:42 by Hiro Nuñez) Father , age 55 Family history of diabetes mellitus Myocardial infarction Mother Coronary heart disease had CABG and from post-op complications; age 64 Other No family history of adverse response to anesthesia Denies family history of Stroke Social History (Updated 11/13/19 @ 10:43 by Hiro Nuñez) Preferred Language: Swedish Communication Ability: Effective Radio Commentator Required: No Beliefs That Will Affect Care: None marital status: Current Living Situation: Spouse current occupational status: retired current occupation: did [employer] in [place] for 30 years Other Information That Helps Us Care for You: No other: 2 children Feels Safe at Home: Yes Safety Concerns: Feels Safe At This Time Smoking Status: Never smoker Second Hand Exposure: Yes ( smoked/father smoked) ; Hx Alcohol Use: No Hx Substance Use: No Review of Systems Constitutional: no fever, no chills, no anorexia and no weight loss Eyes: no worsening vision Ear, Nose, Mouth, Throat: no sore throat and no dysphagia Respiratory: no cough and no dyspnea Cardiovascular: no chest pain, no palpitations and no edema Gastrointestinal: + abdominal pain (LLQ - intermittent - with constipation ), + nausea and + vomiting; no diarrhea/loose stools Genitourinary: no dysuria Musculoskeletal: + joint pain (chronic - various joints) Integumentary: no rash Neurologic: + gait abnormality, + unsteadiness and + tremor(s); no localized weakness and no loss of sensation Psychiatric: + depression Endocrine: BSGs from DM -- high for "long time" Hematologic / Lymphatic: no easy bleeding and no easy bruising Physical Exam Constitutional: well developed and well nourished; no acute distress and no altered mental status Eyes: + anicteric sclerae and PERRL minimal horizontal nystagmus to the left; visual munoz full by direct confrontation ENMT: external ear and nose normal, oropharynx normal Ears: no TM abnormality Neck: trachea midline, no thyromegaly Respiratory: normal respiratory effort, lungs clear to auscultation Cardiovascular: Rate/Rhythm: regular rate and regular rhythm Heart Sounds: normal S1 and normal S2; no murmur Vessels: posterior tibial pulses present and dorsalis pedis pulses present; no JVD Extremities: no edema Gastrointestinal (Abdomen): normal bowel sounds, soft, nontender, no hepatosplenomegaly Musculoskeletal: no cyanosis or clubbing, extremities motor strength 5/5 Skin: no rashes, warm and dry Neurologic: CN's II-XI intact bilaterally, deep tendon reflexes 2+ bilaterally, plantar reflexes intact bilaterally, moves all extremities and awake; no focal motor deficits and not confused Speech / Cognition: normal speech Motor/Sensory: + tremor; no pronator drift Cranial Nerves: sense of smell intact, tongue midline, normal gag reflex and normal hearing Coordination: normal [id number] test heel-jackson maneuver without ataxia Psychiatric: A+Ox3, euthymic affect Lymphatic: no cervical lymphadenopathy Results & Data Results & Data ([facility]) Vital Signs (Past 12 Hours) Vital Signs Temp Pulse Pulse Resp BP BP Pulse Ox 11/13/19 10:11 85 18 162/84 H 95 11/13/19 09:11 86 20 167/85 H 96 11/13/19 08:17 80 18 158/80 H 93 11/13/19 07:07 75 18 162/86 H 99 11/13/19 06:33 79 20 165/77 H 97 11/13/19 06:17 78 14 153/93 H 93 11/13/19 06:12 97 11/13/19 06:08 37.2 C 89 20 170/85 H 97 Laboratory Results Laboratory Results - last 24 hr 11/13/19 11/13/19 11/13/19 06:08 06:08 06:08 WBC 11.01 H RBC 4.71 Hgb 15.3 Hct 44.3 MCV 94.1 MCH 32.5 MCHC 34.5 RDW Std Deviation 44.4 RDW Coeff of Stacy 12.9 Plt Count 276 MPV 8.8 Immature Gran % (Auto) 0.5 Neut % (Auto) 76.5 Lymph % (Auto) 14.8 Surry % (Auto) 6.5 Eos % (Auto) 1.5 Baso % (Auto) 0.2 Immature Gran # (Auto) 0.06 H Neut # (Auto) 8.42 H Lymph # (Auto) 1.63 Surry # (Auto) 0.72 H Eos # (Auto) 0.16 Baso # (Auto) 0.02 PT 10.3 INR 1.0 Sodium 137 Potassium 3.2 L Chloride 99 Carbon Dioxide 30 Anion Gap 8.0 BUN 16 Creatinine 0.91 Est Cr Clr Drug Dosing 68.2 Est GFR ( Amer) 73.1 Est GFR (Non-Af Amer) 63.0 BUN/Creatinine Ratio 17.5 Glucose 218 H Calcium 9.2 Magnesium 1.4 L Total Bilirubin 0.4 AST 36 ALT 60 Alkaline Phosphatase 53 Troponin I < 0.015 Total Protein 7.7 Albumin 3.3 L Globulin 4.4 H Albumin/Globulin Ratio 0.7 L Lipase 223 TSH 3.950 Urine Color Urine Appearance Urine pH Ur Specific Graham Urine Protein Urine Glucose (UA) Urine Ketones Urine Blood Urine Nitrite Urine Bilirubin Urine Urobilinogen Ur Leukocyte Esterase Urine WBC (Auto) Urine RBC (Auto) U Hyaline Cast (Auto) U Epithel Cells (Auto) Urine Bacteria (Auto) 11/13/19 11/13/19 07:40 08:34 WBC RBC Hgb Hct MCV MCH MCHC RDW Std Deviation RDW Coeff of Stacy Plt Count MPV Immature Gran % (Auto) Neut % (Auto) Lymph % (Auto) Surry % (Auto) Eos % (Auto) Baso % (Auto) Immature Gran # (Auto) Neut # (Auto) Lymph # (Auto) Surry # (Auto) Eos # (Auto) Baso # (Auto) PT INR Sodium Potassium Chloride Carbon Dioxide Anion Gap BUN Creatinine Est Cr Clr Drug Dosing Est GFR ( Amer) Est GFR (Non-Af Amer) BUN/Creatinine Ratio Glucose Calcium Magnesium Total Bilirubin AST ALT Alkaline Phosphatase Troponin I < 0.015 Total Protein Albumin Globulin Albumin/Globulin Ratio Lipase TSH Urine Color Yellow Urine Appearance Clear Urine pH 6.0 Ur Specific Graham 1.019 Urine Protein 1+ H Urine Glucose (UA) 2+ H Urine Ketones 1+ H Urine Blood Trace H Urine Nitrite Negative Urine Bilirubin Negative Urine Urobilinogen Negative Ur Leukocyte Esterase Trace H Urine WBC (Auto) 1-5 Urine RBC (Auto) 0-4 U Hyaline Cast (Auto) 0 U Epithel Cells (Auto) 5-10 H Urine Bacteria (Auto) Negative Diagnostic Findings CT head; CTA head/neck -- IMPRESSION: 1. There is no hemorrhage, mass effect, or evidence of acute territorial ischemia by CT criteria. 2. There is tortuosity and mild ectasia of the distal cervical portion of the right internal carotid artery. This is of doubtful significance. 3. Otherwise unremarkable CT angiogram of the neck. The carotid arteries are widely patent bilaterally. 4. Unremarkable CT angiogram of the brain. EKG - NSR, PVC, large R wave V2, no ST changes Code Status & VTE Plan Code Status full VTE Prophylaxis Plan VTE Prophylaxis will be ordered: Yes PG Care Time/CCT Total # of Minutes Spent Total Time Spent with Patient: Total time spent is greater than 50% in coordination of care (as documented) at patient's floor/unit and/or counseling patient: Coding Level of Care Code 41852 OBS Care - Level 3 Diagnoses Vertigo R42 Hypokalemia E87.6 Hypomagnesemia E83.42 Diabetes E11.9 Diabetes mellitus type: type 2 Diabetes mellitus director long term care insulin use: without custodial use Diabetes mellitus complication status: without complication Hypercholesterolemia E78.00 Benign essential hypertension I10 Essential tremor G25.0 Hypoxia R09.02 DVT prophylaxis Z29.9 (1) Diabetes Diabetes mellitus type: type 2 Diabetes mellitus director long term care insulin use: without director long term care use Diabetes mellitus complication status: without complication Qualified Code(s): E11.9 - Type 2 diabetes mellitus without complications
--- NOTE | 2019-11-13 13:18 | XRay Report ---
TWO VIEW CHEST CLINICAL HISTORY: Leukocytosis. Hypoxia. FINDINGS: AP and lateral chest radiographs are compared to study dated 05/20/2018. The AP view is deg raded by apical lordotic positioning. The heart is top normal for projection noting atherosclerotic c alcification of the thoracic aorta. The pulmonary vasculature is noncongested. Plate like atelectasis is present at both lung bases. No airspace consolidation or pleural effusion is seen. There is no pn eumothorax. The skeletal structures are osteopenic. The bony thorax appears intact. Moderate to advan bernadette degenerative change is seen in the shoulders. IMPRESSION: No active disease in the chest. ACT 112: Negative or not required by law. Electronically signed by: Yves Topete M.D. 11/13/2019 1:16 PM
[2019-11-13] MEDS ORDERED: LORazepam 0.5 MG TAB PO STA (13:29)
[2019-11-13] MEDS ORDERED: ONDANSETRON INJ 2 MG/ML 2 ML VIAL IV PRN (13:29)
[2019-11-13] MEDS ORDERED: POLYETHYLENE (MIRALAX) 17 GM PACK PO PRN (13:29)
[2019-11-13] MEDS ORDERED: ACETAMINOPHEN 325 MG TAB PO PRN (13:29)
[2019-11-13] MEDS ORDERED: GLUCAGON FOR INJ 1 MG VIAL IM PRN (14:00)
[2019-11-13] MEDS ORDERED: GLUCOSE 10 TABS/TUBE PO PRN (14:00)
[2019-11-13] MEDS ORDERED: GLUCOSE 40% GEL 15 GM TUBE PO PRN (14:00)
[2019-11-13] MEDS ORDERED: NSS + 20MEQ KCL 20 MEQ/1,000 ML BAG IV SCH (14:00)
[2019-11-13] MEDS ORDERED: CARBOHYDRATES FOR HYPOGLYCEMIA PO PRN (14:00)
[2019-11-13] MEDS ORDERED: DEXTROSE 50% 50 ML SYRINGE IV PRN (14:00)
[2019-11-13] MEDS: INSULIN ASPART 100 UNITS/ML 3 ML PEN SC SCH ×3 (14:29→21:41)
[2019-11-13] MEDS: INSULIN GLARGINE SOLOSTAR 100 UNITS/ML 3 ML PEN SC SCH (14:30)
--- NOTE | 2019-11-13 15:25 | Electrocardiogram Report ---
Test Reason : Blood Pressure : / mmHG Vent. Rate : 080 BPM Atrial Rate : 080 BPM P-R Int : 168 ms QRS Dur : 084 ms QT Int : 418 ms P-R-T Axes : 067 058 046 degrees QTc Int : 482 ms Poor data quality, interpretation may be adversely affected Sinus rhythm with occasional Premature ventricular complexes Nonspecific ST abnormality Abnormal ECG When compared with ECG of 20-MAY-2018 20:46, Premature ventricular complexes are now Present Confirmed by Doroteo Camacho ([id number]) on 11/13/2019 3:25:27 PM Referred By: REFERRED SELF Confirmed By:Tomas Camacho
--- NOTE | 2019-11-13 15:30 | Magnetic Resonance Report ---
MR brain wo con HISTORY: acute vertigo; eval for posterior circulation CVA TECHNIQUE: Multiplanar multisequence MRI of the brain was performed without the use of contrast. COMPARISON STUDY: CT 11/13/2019. CT 05/20/2018 FINDINGS: There are no areas of restricted diffusion to suggest acute infarction. The midline structu res are intact. The paranasal sinuses are clear. The mastoid air cells are clear. The ventricles and sulci are within normal limits for age. There is no mass, hematoma, midline shift. The major vascular flow-voids at the skull base are well maintained. The calcified nodule of the right posterior internet marketing coordinator al capsule has been present previous study. 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 There are components of age-related chronic small vessel changes throughout. IMPRESSION: 1. No evidence for an acute intracranial ischemic process. 2. Heavily calcified nodule right posterior internal capsule unchanged compared to several prior stud ies and most likely benign. 3. Age-related atrophy and chronic small vessel change. ACT 112: Negative or not required by law. The above report was generated using voice recognition software. It may contain grammatical, syntax or spelling errors. Electronically signed by: Thiago Toscano M.D. 11/13/2019 3:29 PM
[2019-11-13] MEDS: ENOXAPARIN INJ 40 MG/0.4 ML SYR SQ SCH (15:37)
[2019-11-13] MEDS: MECLIZINE 12.5 MG TAB PO SCH ×2 (15:37→19:16)
[2019-11-13] MEDS ORDERED: SCOPOLAMINE 1.5 MG TDSY TD SCH (17:45)
[2019-11-13] MEDS ORDERED: NON-FORMULARY MEDICATION (Coenzyme Q10 100 MG) PO SCH (21:00)
[2019-11-13] MEDS: AMLODIPINE BESYLATE 5 MG TAB PO SCH (21:43)
[2019-11-13] MEDS: PRIMIDONE 50 MG TAB PO SCH (21:43)
[2019-11-13] MEDS: METOPROLOL TARTRATE 25 MG TAB PO SCH (21:43)
[2019-11-14] MEDS: CHECK SCOPOLAMINE PATCH PLACEMENT SCH ×3 (00:20→16:00)
[2019-11-14] MEDS: MECLIZINE HCL 25 MG TAB PO PRN ×3 (01:24→16:00)
[2019-11-14 07:19] LABS: BUN Creatinine Ratio 13.2 (10-20); Calcium 8.9 mg/dl (8.5-10.1); Est GFR (African American) 95.4; Est GFR (Non-African American) 82.3; Magnesium 1.5 mg/dl (1.8-2.4); Potassium 3.6 mmol/L (3.5-5.1)
--- NOTE | 2019-11-14 08:22 | Hospitalist Progress Note ---
Date of Service November 14, 2019 Assessment & Plan (1) Vertigo: Neurological exam is normal. No nystagmus was seen in a.m. of 11/13 symptoms however were present subjectively CT head and CTA head/neck negative. MRI brain IMPRESSION: 1. No evidence for an acute intracranial ischemic process. 2. Heavily calcified nodule right posterior internal capsule unchanged compared to several prior studies and most likely benign. 3. Age-related atrophy and chronic small vessel change. likely BPV or acute labrynthitis. Patient is on scopolamine patch will be offered PRN meclizine PT consult for vestibular evaluation. (2) Hypokalemia: Replete (3) Hypomagnesemia: Replete (4) Diabetes: hold oral agents except for januvia.-> Will expect the patient to return to her oral medications at time of discharge if she tolerates her diet well may transition to oral agents prior to discharge place on lantus 10 units daily. novolog - correction factor 30; carb ratio 1:10. DM diet; BSGs ac/hs. (5) Hypercholesterolemia: LDL 103 in 04/2019. cont pravastatin. (6) Benign essential hypertension: resume all home BP meds. chlorthalidone, lisinopril, amlodipine, metoprolol (7) Essential tremor: continue primidone. (8) Hypoxia: intermittently noted in ER, especially when asleep - MARLENE? outpatient sleep study at minimum. Chest x-ray is unremarkable (9) DVT prophylaxis: lovenox once daily Patient compa in observation status is improved may be likely improved by 1 more day Admission and Anticipated Discharge Date Admission Date: November 13, 2019 Subjective pt states that she has returned to 40% of her baseline and feels the vertigo is much improved, she has no other issues and did tolerate her diet now to be advanced Review of Systems Review of Systems: Mild distress and fatigue no headache, blurry or double vision, does have some mild visual changes when she moves her head rapidly no speech or swallowing issues no chest pain, pressure or palpitations no shortness of breath, cough or wheezes no abdominal pain, nausea or vomiting, diarrhea or constipation no dysuria, hematuria or frequency no focal joint pain or swelling no back pain, CVA tenderness or radicular pain no bruising, bleeding or rashes no focal signs of weakness or numbness no complaints or anxiety or depression. Physical Exam Physical Exam: The patient appeared well nourished and normally developed. Vital signs as documented. Head exam is normocephalic atraumatic no scleral icterus, there is no nystagmus Neck is without JVD, thyromegaly, or carotid bruits. Lungs are clear to auscultation, no focal loss of breath sounds Cardiac exam, Rhythm is regular.. No murmurs, rubs or gallops. Abdominal exam reveals normal bowel sounds, soft non tender, no masses Extremities are nonedematous and both pedal pulses are normal. Neurologic exam is alert and oriented, no focal loss of strength or sensation Skin is without bruises or rashes Psychologically is without concerns for anxiety or depression Results & Data Results & Data ([facility]) Vital Signs (Past 12 Hours) Vital Signs Temp Pulse Pulse Resp BP BP Pulse Ox 11/14/19 08:04 98.4 F 70 18 155/78 H 90 11/14/19 07:30 66 11/14/19 03:46 98.2 F 66 20 118/73 92 11/14/19 00:17 77 11/13/19 23:34 98.4 F 71 20 119/73 94 PG Care Time/CCT Total # of Minutes Spent Total Time Spent with Patient: Total time spent is greater than 50% in coordi nation of care (as documented) at patient's floor/unit and/or counseling patient: Coding Level of Care Code 90410 Subseq Obs Care Lvl 2 Diagnoses Vertigo R42 Hypokalemia E87.6 Hypomagnesemia E83.42 Diabetes E11.9 Diabetes mellitus complication status: without complication Diabetes mellitus alf insulin use: without terminal clerk use Diabetes mellitus type: type 2 Hypercholesterolemia E78.00 Benign essential hypertension I10 Essential tremor G25.0 Hypoxia R09.02 DVT prophylaxis Z29.9 (1) Diabetes Diabetes mellitus complication status: without complication Diabetes mellitus alf insulin use: without terminal clerk use Diabetes mellitus type: type 2 Qualified Code(s): E11.9 - Type 2 diabetes mellitus without complications
[2019-11-14] MEDS: MAGNESIUM SULFATE / D5W 1 GM/100 ML BAG IV SCH (08:36)
[2019-11-14] MEDS: CHOLECALCIFEROL 1,000 UNITS 25 MCG TAB PO SCH (08:37)
[2019-11-14] MEDS: PRIMIDONE 50 MG TAB PO SCH ×2 (08:38→21:30)
[2019-11-14] MEDS: CHLORTHALIDONE 25 MG TAB PO SCH (08:38)
[2019-11-14] MEDS: lisinopriL 40 MG TAB PO SCH (08:38)
[2019-11-14] MEDS: ASPIRIN 81 MG ECTAB PO SCH (08:38)
[2019-11-14] MEDS: METOPROLOL TARTRATE 25 MG TAB PO SCH ×2 (08:38→21:29)
[2019-11-14] MEDS: INSULIN GLARGINE SOLOSTAR 100 UNITS/ML 3 ML PEN SC SCH (08:39)
[2019-11-14] MEDS: INSULIN ASPART 100 UNITS/ML 3 ML PEN SC SCH ×4 (08:39→22:27)
[2019-11-14] MEDS ORDERED: PRAVASTATIN SOD 40 MG TAB PO SCH (09:00)
[2019-11-14] MEDS: SITAGLIPTIN PHOSPHATE 100 MG TAB PO SCH (09:30)
[2019-11-14] MEDS: ENOXAPARIN INJ 40 MG/0.4 ML SYR SQ SCH (13:40)
[2019-11-14] MEDS: PRAVASTATIN SOD 40 MG TAB PO SCH (21:30)
[2019-11-14] MEDS: AMLODIPINE BESYLATE 5 MG TAB PO SCH (21:30)
[2019-11-15] MEDS: CHECK SCOPOLAMINE PATCH PLACEMENT SCH ×3 (00:08→17:15)
[2019-11-15] MEDS: ASPIRIN 81 MG ECTAB PO SCH (08:29)
[2019-11-15] MEDS: CHLORTHALIDONE 25 MG TAB PO SCH (08:29)
[2019-11-15] MEDS: PRIMIDONE 50 MG TAB PO SCH ×2 (08:30→21:06)
[2019-11-15] MEDS: lisinopriL 40 MG TAB PO SCH (08:30)
[2019-11-15] MEDS: CHOLECALCIFEROL 1,000 UNITS 25 MCG TAB PO SCH (08:30)
[2019-11-15] MEDS: SITAGLIPTIN PHOSPHATE 100 MG TAB PO SCH (08:30)
[2019-11-15] MEDS: METOPROLOL TARTRATE 25 MG TAB PO SCH ×2 (08:30→21:06)
[2019-11-15] MEDS: MECLIZINE HCL 25 MG TAB PO PRN ×2 (08:31→18:41)
[2019-11-15] MEDS: INSULIN ASPART 100 UNITS/ML 3 ML PEN SC SCH ×4 (08:35→21:05)
[2019-11-15] MEDS: INSULIN GLARGINE SOLOSTAR 100 UNITS/ML 3 ML PEN SC SCH (08:36)
[2019-11-15] MEDS: NITROFURANTOIN MONOHYDRATE 100 MG CAP PO SCH ×2 (10:11→21:06)
[2019-11-15] MEDS: ENOXAPARIN INJ 40 MG/0.4 ML SYR SQ SCH (12:07)
--- NOTE | 2019-11-15 14:59 | Hospitalist Progress Note ---
Date of Service November 15, 2019 Assessment & Plan (1) Vertigo: Neurological exam remains normal. No nystagmus, but still exacerbates her symptoms with movement CT head and CTA head/neck negative. MRI brain IMPRESSION: 1. No evidence for an acute intracranial ischemic process. 2. Heavily calcified nodule right posterior internal capsule unchanged compared to several prior studies and most likely benign. 3. Age-related atrophy and chronic small vessel change. likely BPV or acute labrynthitis. Patient is on scopolamine patch and continues PRN meclizine PT consult for vestibular evaluation. (2) Hypokalemia: Replete (3) Hypomagnesemia: Replete (4) Diabetes: hold oral agents except for januvia.-> Will expect the patient to return to her oral medications at time of discharge if she tolerates her diet well may transition to oral agents prior to discharge place on lantus 10 units daily. novolog - correction factor 30; carb ratio 1:10. DM diet; BSGs ac/hs. (5) Hypercholesterolemia: LDL 103 in 04/2019. cont pravastatin. (6) Benign essential hypertension: resume all home BP meds. chlorthalidone, lisinopril, amlodipine, metoprolol (7) Essential tremor: continue primidone. (8) Hypoxia: resolved outpatient sleep study may benefit pt Chest x-ray is unremarkable (9) DVT prophylaxis: lovenox once daily Patient compa in observation status is improved may be likely improved by 1 more day (10) Abnormal urinalysis: Pt has abnormal urinalysis , this maybe impacting her symptoms, check urine culture and started macrobid Admission and Anticipated Discharge Date Admission Date: November 13, 2019 Subjective pt states that she has returned to 60% of her baseline she still feels somewhat unstable with ambulation Review of Systems Review of Systems: Mild distress and fatigue no headache, blurry or double vision, does have some mild visual changes when she moves her head rapidly no speech or swallowing issues no chest pain, pressure or palpitations no shortness of breath, cough or wheezes no abdominal pain, nausea or vomiting, diarrhea or constipation no dysuria, hematuria or frequency no focal joint pain or swelling no back pain, CVA tenderness or radicular pain no bruising, bleeding or rashes no focal signs of weakness or numbness no complaints or anxiety or depression. Physical Exam Physical Exam: The patient appeared well nourished and normally developed. Vital signs as documented. Head exam is normocephalic atraumatic no scleral icterus, there is no nystagmus Neck is without JVD, thyromegaly, or carotid bruits. Lungs are clear to auscultation, no focal loss of breath sounds Cardiac exam, Rhythm is regular.. No murmurs, rubs or gallops. Abdominal exam reveals normal bowel sounds, soft non tender, no masses Extremities are nonedematous and both pedal pulses are normal. Neurologic exam is alert and oriented, no focal loss of strength or sensation Skin is without bruises or rashes Psychologically is without concerns for anxiety or depression Results & Data Results & Data ([facility]) Vital Signs (Past 12 Hours) Vital Signs Temp Pulse Pulse Resp BP BP Pulse Ox 11/15/19 11:13 98.1 F 68 18 146/74 H 176/74 H 95 11/15/19 09:11 71 11/15/19 08:13 99.0 F 69 18 134/79 93 11/15/19 04:00 97.7 F 65 20 117/71 92 PG Care Time/CCT Total # of Minutes Spent Total Time Spent with Patient: Total time spent is greater than 50% in coordination of care (as documented) at patient's floor/unit and/or counseling patient: Coding Level of Care Code 81677 Subseq Obs Care Lvl 2 Diagnoses Vertigo R42 Hypokalemia E87.6 Hypomagnesemia E83.42 Diabetes E11.9 Diabetes mellitus type: type 2 Diabetes mellitus long term care phlebotomist insulin use: without snf use Diabetes mellitus complication status: without complication Hypercholesterolemia E78.00 Benign essential hypertension I10 Essential tremor G25.0 Hypoxia R09.02 DVT prophylaxis Z29.9 Abnormal urinalysis R82.90 (1) Diabetes Diabetes mellitus type: type 2 Diabetes mellitus long term care phlebotomist insulin use: without snf use Diabetes mellitus complication status: without complication Qualified Code(s): E11.9 - Type 2 diabetes mellitus without complications
[2019-11-15] MEDS: PRAVASTATIN SOD 40 MG TAB PO SCH (21:06)
[2019-11-15] MEDS: AMLODIPINE BESYLATE 5 MG TAB PO SCH (21:06)
[2019-11-16] MEDS: CHECK SCOPOLAMINE PATCH PLACEMENT SCH ×2 (00:14→08:17)
[2019-11-16] MEDS: MECLIZINE HCL 25 MG TAB PO PRN ×2 (04:40→11:36)
[2019-11-16] MEDS: ASPIRIN 81 MG ECTAB PO SCH (08:18)
[2019-11-16] MEDS: CHLORTHALIDONE 25 MG TAB PO SCH (08:18)
[2019-11-16] MEDS: CHOLECALCIFEROL 1,000 UNITS 25 MCG TAB PO SCH (08:18)
[2019-11-16] MEDS: NITROFURANTOIN MONOHYDRATE 100 MG CAP PO SCH (08:18)
[2019-11-16] MEDS: METOPROLOL TARTRATE 25 MG TAB PO SCH (08:19)
[2019-11-16] MEDS: SITAGLIPTIN PHOSPHATE 100 MG TAB PO SCH (08:19)
[2019-11-16] MEDS: lisinopriL 40 MG TAB PO SCH (08:19)
[2019-11-16] MEDS: INSULIN GLARGINE SOLOSTAR 100 UNITS/ML 3 ML PEN SC SCH (08:22)
[2019-11-16] MEDS: INSULIN ASPART 100 UNITS/ML 3 ML PEN SC SCH ×2 (08:23→12:28)
[2019-11-16] MEDS: PRIMIDONE 50 MG TAB PO SCH (10:00)
--- NOTE | 2019-11-16 12:42 | Discharge Summary ---
Date of Service November 16, 2019 Admission HPI Per Admitting Provider 74yo female with history of HTN and T2DM who presents with acute onset of vertigo beginning at 0430 this am. She woke up to go to bathroom and as soon as she stood up the room began to spin. The vertigo episode lasted a few minutes. Had nausea and vomiting with the vertigo. Sudden movements of her head brings on the vertigo. No visual field cuts. With attempts at walking she would feel like she was going to fall to the right. Over the last few days she has felt well. No fevers, chills, cough, congestion, nasal discharge, sore throat, loss of taste or smell, or sick contacts. No travel. Principal Diagnosis vertigo abnormal ua but negative culture diabetes Discharge Exam The patient appeared well Vital signs as documented. 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 No nystagmus, but still exacerbates her symptoms with movement CT head and CTA head/neck negative. MRI brain IMPRESSION: 1. No evidence for an acute intracranial ischemic process. 2. Heavily calcified nodule right posterior internal capsule unchanged compared to several prior studies and most likely benign. 3. Age-related atrophy and chronic small vessel change. likely BPV or acute labyrinthitis. Patient is on scopolamine patch and continues PRN meclizine-> Rx given consider Kezia maneuver an outpt (2) Hypokalemia: Replete (3) Hypomagnesemia: Replete (4) Diabetes: Resume home oral medications of Januvia and metformin and glimepiride (5) Hypercholesterolemia: LDL 103 in 04/2019. cont pravastatin. (6) Benign essential hypertension: resume all home BP meds. chlorthalidone, lisinopril, amlodipine, metoprolol (7) Essential tremor: continue primidone. (8) Hypoxia: resolved outpatient sleep study may benefit pt Chest x-ray is unremarkable (9) Abnormal urinalysis: Pt has abnormal urinalysis urine culture has been negative will not discharge on antibiotics Total Time Total Time Spent Total Time Spent (In Minutes): It required greater than 30 minutes to prepare this patient for discharge Discharge Plan Discharge Items Patient Disposition: Home - Self-Care Reason For Visit: ACUTE VERTIGO Discharge Diagnosis: vertigo Condition on Discharge: Good Activity: Per Instructions section Activity Comment: please slowly increase activity Non-emergency contact: Primary Care Provider Call non-emergency contact if: you have any medication questions Follow-up/Referrals: Pool Calixto MD [Primary Care Provider] - Diet: Regular Addtl Attending Provider Instructions: please contact your primary care doctor for referrel to Physical therapy or audiology for consideration of the KEZIA maneuver we did test your urine here and we could not confirm infection so no antibiotic will be continued Pending Studies at Discharge: No Stand-Alone Forms: My [facility] [employer], Smoking Cessation Medications and DC Order Prescriptions: New meclizine 25 mg tablet 25 mg PO TID PRN (Reason: dizziness) Qty: 20 RF: 0 scopolamine base [Transderm-Scop] 1 mg over 3 days Patch 3 Day 1.5 mg transdermal Q72H Qty: 4 RF: 0 Continued lisinopril 40 mg tablet 40 mg PO DAILY Qty: 90 RF: 3 cholecalciferol (vitamin D3) [Vitamin D3] 25 mcg (1,000 unit) capsule 2,000 units PO DAILY RF: 0 Januvia 100 mg tablet 100 mg PO DAILY Qty: 90 RF: 1 chlorthalidone 25 mg tablet 25 mg PO DAILY Qty: 90 RF: 1 pravastatin 80 mg tablet 80 mg PO DAILY Qty: 30 RF: 2 aspirin [Aspir-81] 81 mg tablet,delayed release (DR/EC) 81 mg PO DAILY RF: 0 glimepiride 4 mg tablet 4 mg PO QAM Qty: 90 RF: 3 amlodipine 10 mg tablet 10 mg PO .evening Qty: 90 RF: 3 coenzyme Q10 100 mg capsule 100 mg PO BID Qty: 180 RF: 3 metformin 1,000 mg tablet 1,000 mg PO BID RF: 0 metoprolol tartrate 50 mg tablet 75 mg PO BID RF: 0 primidone 50 mg tablet 50 mg PO BID RF: 0 polyethylene glycol 3350 [Miralax] 17 gram powder in packet 17 gm PO UD PRN (Reason: Constipation) RF: 0 No Action (DME) Accu-Chek Amrita Plus test strp Strip See Dose Instructions .ROUTE .MEDSUPPLY Qty: 100 RF: 5 Discharge Orders: Discharge Order (Routine); Ordered 11/16/19 Ordered By: Micah Solano/Other Patient Handouts: Dizziness Vertigo and Balance Problems Diagnostic Tests, Vertigo Staying Safe Admission Data Admit Date/Time: 11/15/19 17:25 Attending Provider: Micah Mullins Admit Provider: Hiro Nuñez Primary Care Provider: Pool Calixto Other Providers: Hiro Nuñez Coding Level of Care Code D/C Day Management >30 mins Diagnoses Vertigo R42 Hypokalemia E87.6 Hypomagnesemia E83.42 Diabetes E11.9 Diabetes mellitus type: type 2 Diabetes mellitus half-way insulin use: without half-way use Diabetes mellitus complication status: without complication Hypercholesterolemia E78.00 Benign essential hypertension I10 Essential tremor G25.0 Hypoxia R09.02 Abnormal urinalysis R82.90
[2019-11-16] MEDS: ENOXAPARIN INJ 40 MG/0.4 ML SYR SQ SCH (15:15)
== END 2019-11-16 17:06 | disposition home or self-care (01) | DRG 149 ==
LOC: ED 05:54 → 2W 05:54 → SUATTDRO 11:04 → 2W 12:54

== ENCOUNTER 2022-03-01 14:13 | Observation (INO) ==
[2022-03-01 15:09] LABS: iSTAT Hemoglobin 17.3 g/dl (12.0-16.0); iSTAT Ionized Calcium 1.1 mmol/l (1.12-1.32); iSTAT Potassium 3.2 mmol/L (3.3-5.0)
[2022-03-01 15:13] LABS: Hematocrit (blood only) 46.9 % (34.1-44.9); Mean Corpuscular Hemoglobin 32.8 pg (25.0-34.0); Mean Corpuscular Hgb Conc 36.2 g/dL (32.0-36.0); Mean Corpuscular Volume 90.4 fL (80.0-100.0); Mean Platelet Volume 8.2 fL (9.4-12.3); Platelet Count 368 K/uL (130-400); RDW Coefficient of Variation 12.4 % (11.5-14.5); RDW Standard Deviation 41.1 fL (36.4-46.3); Red Blood Count 5.19 M/uL (3.93-5.22)
[2022-03-01 15:21] LABS: Partial Thromboplastin Ratio 0.9; Partial Thromboplastin Time 24.8 Seconds (21.0-31.0); Prothrombin Time 10.9 Seconds (9.0-12.0)
[2022-03-01] MEDS ORDERED: OPTIRAY 300 500mL IV ONE (15:26)
--- NOTE | 2022-03-01 15:35 | CT Scan Report ---
CT SCAN OF THE BRAIN WITHOUT IV CONTRAST CLINICAL HISTORY: Strokelike symptoms. COMPARISON STUDY: CT of the brain dated 11/13/2019. TECHNIQUE: Unenhanced axial CT scan of the brain is performed from the vertex to the skull base. A do se lowering technique was utilized adhering to the principles of ALARA. CT DOSE: 788.63 mGycm FINDINGS: Brain parenchyma: There is age-related involutional change noting mild subcortical and periventricula r microangiopathic disease. There is no hemorrhage, mass effect, or evidence of acute territorial isc hemia by CT criteria. A calcification in the right parisi radiata is unchanged from previous. Villeda-wh ite matter differentiation is preserved. No extra-axial fluid collection is seen. Ventricles, sulci, cisterns: Prominent secondary to involutional change. Intracranial vasculature: There is atherosclerotic calcification of the cavernous carotid and vertebr al arteries. Calvarium: Unremarkable. Sinuses and mastoids: The visualized paranasal sinuses are clear. The mastoid air cells are well pneu matized. Orbits: The bony orbits are grossly intact. There is a right ocular lens implant. IMPRESSION: There is no hemorrhage, mass effect, or evidence of acute territorial ischemia by CT jose adniel higgins. ACT 112: Negative or not required by law. Electronically signed by: Yves Topete M.D. 03/01/2022 3:33 PM
[2022-03-01 15:38] LABS: Albumin Globulin Ratio 1.2 (0.9-2); Albumin Level 4.1 gm/dl (3.4-5.0); Bilirubin,Total 0.6 mg/dl (0.2-1.0); Calcium 9.7 mg/dl (8.5-10.1); Creatinine Clr Calc Pharmacy 54.8 ml/min; Est GFR (African American) 64.3 ml/min; Est GFR (Non-African American) 55.5 ml/min; Globulin 3.3 gm/dl (2.5-4.0); Magnesium 1.5 mg/dl (1.7-2.4); Potassium 3.2 mmol/L (3.5-5.1); Total Protein 7.4 gm/dl (6.0-8.3)
--- NOTE | 2022-03-01 15:39 | CT Scan Report ---
CT angio head w con CLINICAL HISTORY: 76 years-old Female with cardenas confusion. Acute headache with confusion COMPARISON STUDY: Head CT of same day, brain MRI and head CT study 11/13/2019 TECHNIQUE: Following th e IV administration of 106 cc of Optiray, CT angiogram of the brain was performed from the skull base to the vertex. Images are reviewed in the axial, sagittal, and coronal planes. 3-D MIPS images are c reated and assessed. IV contrast was administered without complication. All measurements were obtaine d according to NASCET criteria. A dose lowering technique was utilized adhering to the principles of ALARA. CT DOSE: 1329.28 mGycm FINDINGS: The imaged bilateral internal carotid arteries are patent. The bilateral anterior and middle cerebral arteries are also patent. Developmentally diminutive right A1 segment. The vertebrobasilar system an d posterior cerebral arteries are widely patent. There is no aneurysm, high-grade stenosis, or proxim al branch occlusion identified. Dural sinuses appear patent. Unchanged 11 mm calcification within the right frontal lobe parisi radiata/posterior limb of the inte rnal capsule. Involutional changes with white matter hypodensities suggestive of chronic microvascular ischemic dis ease. IMPRESSION: Unremarkable CTA of the head. ACT 112: Negative or not required by law. The above report was generated using voice recognition software. It may contain grammatical, syntax o r spelling errors. Electronically signed by: Bubba Eckert M.D. 03/01/2022 3:38 PM
--- NOTE | 2022-03-01 15:44 | CT Scan Report ---
CT ANGIOGRAPHY OF THE NECK WITH CONTRAST CLINICAL HISTORY: Headache. Confusion. COMPARISON STUDY: CTA of the neck November 13, 2019. Technique: CT angiography of the carotid and vertebral arteries was obtained using Optiray and 3D rec onstruction on an independent workstation. NASCET criteria was utilized. Automated exposure control was utilized for the study. A dose lowering technique was utilized adhering to the principles of ALA RA. Findings: Visualized portions of the apices are unremarkable. There is no cervical lymphadenopathy. S everal thyroid nodules measure up to 1.7 cm. The bilateral common carotid, cervical internal carotid and vertebral arteries are patent. There is minimal plaque within the proximal right internal carotid artery without stenosis. Mild dilatation of the distal cervical right internal carotid artery is unc hanged. There is no dissection or aneurysm within the neck. IMPRESSION: No stenosis or dissection within the bilateral common carotid, cervical internal carotid or vertebral arteries. Minimal plaque. ACT 112: Negative or not required by law. Electronically signed by: Herrera Moffett M.D. 03/01/2022 3:43 PM
[2022-03-01 16:56] LABS: Appearance Urine Clear (Clear); Bacteria Urine Automated Negative (Negative); Bilirubin Urine Negative (Negative); Blood Urine Trace (Negative); Cast Urine Automated 0 /lpf (0-5); Color Urine Yellow; Epithelial Cell Urine Auto 20-30 /lpf (0-5); Glucose Urine UA Negative (Negative); Ketones Urine Negative (Negative); Leukocyte Esterase Urine 1+ (Negative); Nitrite Urine Negative (Negative); Protein Urine 1+ (Negative); RBC Urine Automated 0-4 /hpf (0-4); Specific Gravity Urine 1.023 (1.000-1.030); Urobilinogen Urine Negative (Negative)
--- NOTE | 2022-03-01 16:58 | History & Physical Report ---
Date of Service March 01, 2022 Assessment & Plan (1) Stroke-like symptoms: Plan: -Admit to med/tele -At the present time it is unknown if the patient's recent symptoms were caused by a potential stroke or TIA. Need to rule out other causes as well such as infection and dehydration -Initial workup including CT head and CT head/neck were negative for acute findings. Will obtain MRI of the brain, TTE, and lipid panel -Patient has been on aspirin and statin prior to these episodes -Chest xray negative for acute findings, leukocytosis could be due to recent episodes of vomiting, will follow-up with UA to rule out infection -Seizure precautions ordered, neuro consult ordered, PT/OT consuls ordered -AM CBC, BMP, and Mag (2) Nausea & vomiting: Plan: -Patient has been experiencing nausea and vomiting for the past 3 days, no diarrhea, has been without similar symptoms -Could be due to gastritis or possible gastroenteritis -Will order zofran, continue home pantoprazole, continue to monitor symptoms -Patient appears dehydrated on exam, will give a 1L Lactated Ringer's bolus now (3) Hypokalemia: Plan: -Noted to be 3.2 in the ED -Likely due to recent nausea and vomiting, as-well-as mag of 1.5 -Will give 10 meq IV KCL x 3 doses to prevent continued stomach irriation with PO -Monitor AM potassium (4) Hypomagnesemia: Plan: -Noted to be 1.5 today -Has a history of hypomagnesemia -Will give 1g mag-sulfate now -FU am BMP and mag levels (5) Diabetes: Plan: -Normally on 15 units Glargine in the am, daily Glimepiride weekly semaglutide -Had her am dose of Glargine this morning -Will continue with home Glargine and will start correction factor of 50 (6) Benign essential hypertension: Plan: -Continue amlodipine and lisinopril (7) Parkinson disease: Plan: -At baseline neurologic status per -Continue Pramipexole and primidone (8) Essential tremor: Plan: -Continue propranolol -Continue gabapentin for chronic BL neuropathy (9) Hypercholesterolemia: Plan: -Continue atorvaststin Plan The patient was discussed with Dr. Carvalho at the time of the admission History of Present Illness Chief Complaint: Stroke symptoms Primary Care Provider: MD Ratna Gastelum is a 76 year old female with a PMH significant for parkinsons's disease, essential tremor, DM II, hypokalemia, HTN, hypercholesterolemia, BPV, and BL leg pain who presented to the [facility] ED on 03/01/22 with concern's for stroke-like symptoms. Per the ED staff, the patient has been experiencing slurred speech/expressive aphasia since yesterday around noon. In the ED the patient was noted to be afebrile, hemodynamically stable, and stable on room air. Labs were remarkable for a leukocytosis of 11.7, potassium of 3.2 with a magnesium of 1.5, UA was in process at the time of admission. Chest xray was negative for acute findings. CT and CTA of the head were negative for acute findings. CTA of the neck showed "No stenosis or dissection within the bilateral common carotid, cervical internal carotid or vertebral arteries. Minimal plaque". The patient was not a candidate for TNK as her last well know was greater than 4 hours. We were asked to admit the patient to continue her stroke workup. At the time of the exam the patient was resting in bed in no acute distress with her sitting bedside. History was obtained from the patient and her . The patient has been experiencing nausea for the past three days. Yesterday, prior to her episodes of confusion the patient experienced approximately 4 episodes of non-bloody emesis. The patient also developed a frontal headahce, The patient's states that during this time and after the patient had intermittent episodes where she would not respond to him and "stare off" for moments. They deny any episodes of changes in vision, hearing, taste, or smell, convulsions, loss of bowel or bladder function, facial droop, or new weakness. She has a history of parkinson's disease and essential tremor. At baseline her right upper extremity has a more severe tremor than her left upper extremity. When asked, they state that they did not check her blood sugar yesterday or today. Her did give her her am dose of glargine this morning. They state that she has not been eating well over the past 3 days due to her nausea and vomiting. The patient and her deny any history of seizures and previous episodes similar to yesterday. She denies recent abdominal pain and dysuria but does note that her urine has been darker and foul-smelling. Per her , the patient appears to be back to her neurologic baseline at the time of the exam. Allergies Allergy/AdvReac Type Severity Reaction Status Date / Time No Known Drug Allergies Allergy Unknown Verified 03/01/22 17:27 Home Medications Medication Instructions Recorded Confirmed Type cholecalciferol (vitamin D3) 25 2,000 units PO DAILY 05/06/19 03/01/22 History mcg (1,000 unit) capsule (Vitamin D3) multivitamin (Daily Multi-Vitamin 1 tab PO DAILY 01/21/20 03/01/22 History tablet) lisinopril 40 mg tablet 40 mg PO DAILY #90 tabs 03/12/21 03/01/22 Rx lancets 33 gauge (OneTouch Delica #100 ea 07/16/21 10/12/21 Rx Lancets) flash glucose sensor (FreeStyle #1 ea 09/14/21 10/12/21 Rx Bianca 14 Day Sensor kit) flash glucose scanning reader #8 ea 11/05/21 Rx (FreeStyle Bianca 14 Day [place]) pen needle, diabetic 31 gauge x #50 ea 11/24/21 Rx 1/4" (Comfort EZ Pen [place]) propranolol 120 mg capsule,24 120 mg PO DAILY #90 caps 12/07/21 03/01/22 Rx hr,extended release atorvastatin 40 mg tablet 40 mg PO DAILY #90 tabs 12/08/21 03/01/22 Rx pramipexole 0.25 mg tablet See Rx Instructions .Route .COMPLEX 02/03/22 03/01/22 History primidone 50 mg tablet See Rx Instructions .Route .COMPLEX 02/03/22 03/01/22 History amlodipine 10 mg tablet 10 mg PO QPM 03/01/22 03/01/22 History aspirin 81 mg tablet,delayed 81 mg PO DAILY 03/01/22 03/01/22 History release diclofenac sodium 1 % topical gel 2 g topical QID PRN Pain 03/01/22 03/01/22 History (Arthritis Pain (diclofenac)) gabapentin 100 mg capsule 100 mg PO TID 03/01/22 03/01/22 History glimepiride 4 mg tablet 4 mg PO BID 03/01/22 03/01/22 History insulin glargine 100 unit/mL (3 15 unit subcut QAM 03/01/22 03/01/22 History mL) subcutaneous pen (Lantus Solostar U-100 Insulin) semaglutide 1 mg/dose (2 mg/1.5 1 mg subcut WK 03/01/22 03/01/22 History mL) subcutaneous pen injector Past Med/Surg History Medical History Benign essential hypertension Cataract (lens) fragments in eye following cataract surgery Chronic constipation Diabetes mellitus, type 2 Essential tremor on primidone Gout no meds Hyperlipidemia Myalgia Osteoarthritis Vitamin D deficiency Surgical History History of colonoscopy History of right knee joint replacement History of tonsillectomy and adenoidectomy History of tooth extraction Ingrown toenail of right foot removal Family History Father , age 55 Family history of diabetes mellitus Myocardial infarction Hypertension Mother Coronary heart disease had CABG and from post-op complications; age 64 Hypertension Other No family history of adverse response to anesthesia Denies family history of Stroke Social History Smoking Status: Never smoker Second Hand Exposure: No ( smoked/father smoked); Hx Alcohol Use: No Hx Substance Use: No Preferred Language: Canadian Communication Ability: Effective Hearing Ability: Normal Fireproof Door Maker Required: No Beliefs That Will Affect Care: None marital status: Current Living Situation: Spouse current occupational status: retired current occupation: did [employer] work in [place] for 30 years How many Children do You have: 2 other: 2 children Feels Safe at Home: Yes Safety Concerns: Feels Safe At This Time Seatbelt Use: always Sunscreen Use: No Assistive Devices: Glasses and Walker Review of Systems Review of Systems: Denies current fever, chills, headache, changes in vision, hearing, taste, and smell, chest pain, SOB, cough, abdominal pain, nausea, vomiting, diarrhea, hematemesis, melena, dysuria, hematuria, and recent falls. All systems have been reviewed and are otherwise negative. Physical Exam Physical Exam: Physical Exam: General: In no acute distress, stated age, chronically ill-appearing. HEENT: Normocephalic, atraumatic, no scleral icterus, pupils around round, symmetrical, and reactive to light, Dry mucus membranes, trachea midline, no thyromegaly Chest/Pulm: No respiratory distress, symmetrical chest expansion, clear breath sounds throughout Cardiac: RRR, no murmurs noted Abdomen: Negative for ascites and bruising, normoactive bowel sounds, soft, non-tender to palpation throughout Musculoskeletal: Symmetrical and without signs of acute trauma, upper and lower extremities with full ROM, Extremities: Radial, dorsalis pedis, and posterior tibial pulses are intact and symmetrical, no edema noted in the BL LE's Skin: Warm, dry, no rashes , lesions, or scars noted Neuro: Alert and oriented to person, place, month, year, and president, no focal defects, patient with baseline resting tremor with right upper extremity greater than left, CN II-XII tested and intact, Psych: No acute distress, calm and cooperative during the exam Results & Data Results & Data ([facility]) Vital Signs (Past 12 Hours) Vital Signs Temp Pulse Pulse Resp BP BP Pulse Ox 03/01/22 15:30 87 20 192/102 H 96 03/01/22 14:27 37 C 90 20 166/103 H 95 O2 Del Method 03/01/22 15:30 Room Air 03/01/22 14:27 Room Air Laboratory Results Abnormal lab results 03/01/22 03/01/22 03/01/22 Range/Units 14:48 14:48 14:56 WBC 11.70 H (4.8-10.8) K/ul Hgb 17.0 H (12.0-16.0) g/dl POC Hgb 17.3 H (12.0-16.0) g/dl Hct 46.9 H (34.1-44.9) % POC Hct 51 H (37-47) % MCHC 36.2 H (32.0-36.0) g/dL MPV 8.2 L (9.4-12.3) fL POC Sodium 133 L (135-144) mmol/L Sodium 133 L (136-145) mmol/L POC Potassium 3.2 L (3.3-5.0) mmol/L Potassium 3.2 L (3.5-5.1) mmol/L POC Chloride 92 L (101-112) mmol/L Chloride 92 L (98-107) mmol/L Glucose 185 H (70-99(Fasting)) mg/dl POC Glucose (other) 178 H (70-99) mg/dl POC Ioniz Calcium Van 1.10 L (1.12-1.32) mmol/l Magnesium 1.5 L (1.7-2.4) mg/dl Urine Protein (Negative) Urine Blood (Negative) Ur Leukocyte Esterase (Negative) Urine WBC (Auto) (0-5) /hpf U Epithel Cells (Auto) (0-5) /lpf 03/01/22 Range/Units 16:43 WBC (4.8-10.8) K/ul Hgb (12.0-16.0) g/dl POC Hgb (12.0-16.0) g/dl Hct (34.1-44.9) % POC Hct (37-47) % MCHC (32.0-36.0) g/dL MPV (9.4-12.3) fL POC Sodium (135-144) mmol/L Sodium (136-145) mmol/L POC Potassium (3.3-5.0) mmol/L Potassium (3.5-5.1) mmol/L POC Chloride (101-112) mmol/L Chloride (98-107) mmol/L Glucose (70-99(Fasting)) mg/dl POC Glucose (other) (70-99) mg/dl POC Ioniz Calcium Van (1.12-1.32) mmol/l Magnesium (1.7-2.4) mg/dl Urine Protein 1+ H (Negative) Urine Blood Trace H (Negative) Ur Leukocyte Esterase 1+ H (Negative) Urine WBC (Auto) 5-10 H (0-5) /hpf U Epithel Cells (Auto) 20-30 H (0-5) /lpf Diagnostic Findings Chest X-Ray 03/01/22 14:34 XR chest 1V portable CLINICAL HISTORY: stroke alert COMPARISON STUDY: Chest radiograph November 13, 2019. FINDINGS: No pneumothorax or pleural effusion is present. There is no consolidation to suggest pneumonia. Cardiomediastinal silhouette is stable. There is pulmonary vascular congestion without overt pulmonary edema. Severe osteoarthrosis of both glenohumeral joints is incidentally noted. IMPRESSION: Pulmonary vascular congestion without overt pulmonary edema. ACT 112: Negative or not required by law. Electronically signed by: Herrera Moffett M.D. 03/01/2022 4:[address] 03/01/22 14:34 CT SCAN OF THE BRAIN WITHOUT IV CONTRAST CLINICAL HISTORY: Strokelike symptoms. COMPARISON STUDY: CT of the brain dated 11/13/2019. TECHNIQUE: Unenhanced axial CT scan of the brain is performed from the vertex to the skull base. A dose lowering technique was utilized adhering to the principles of ALARA. CT DOSE: 788.63 mGycm FINDINGS: Brain parenchyma: There is age-related involutional change noting mild subcortical and periventricular microangiopathic disease. There is no hemorrhage, mass effect, or evidence of acute territorial ischemia by CT criteria. A calcification in the right parisi radiata is unchanged from previo us. Villeda-white matter differentiation is preserved. No extra-axial fluid collection is seen. Ventricles, sulci, cisterns: Prominent secondary to involutional change. Intracranial vasculature: There is atherosclerotic calcification of the cavernous carotid and vertebral arteries. Calvarium: Unremarkable. Sinuses and mastoids: The visualized paranasal sinuses are clear. The mastoid air cells are well pneumatized. Orbits: The bony orbits are grossly intact. There is a right ocular lens implant. IMPRESSION: There is no hemorrhage, mass effect, or evidence of acute territorial ischemia by CT criteria. ACT 112: Negative or not required by law. Electronically signed by: Yves Topete M.D. 03/01/2022 3:33 PM Head CTA 03/01/22 14:40 CT angio head w con CLINICAL HISTORY: 76 years-old Female with cardenas confusion. Acute headache with confusion COMPARISON STUDY: Head CT of same day, brain MRI and head CT study 11/13/2019 TECHNIQUE: Following the IV administration of 106 cc of Optiray, CT angiogram of the brain was performed from the skull base to the vertex. Images are reviewed in the axial, sagittal, and coronal planes. 3-D MIPS images are created and assessed. IV contrast was administered without complication. All measurements were obtained according to NASCET criteria. A dose lowering technique was utilized adhering to the principles of ALARA. CT DOSE: 1329.28 mGycm FINDINGS: The imaged bilateral internal carotid arteries are patent. The bilateral anterior and middle cerebral arteries are also patent. Developmentally d iminutive right A1 segment. The vertebrobasilar system and posterior cerebral arteries are widely patent. There is no aneurysm, high-grade stenosis, or proximal branch occlusion identified. Dural sinuses appear patent. Unchanged 11 mm calcification within the right frontal lobe parisi radiata/posterior limb of the internal capsule. Involutional changes with white matter hypodensities suggestive of chronic microvascular ischemic disease. IMPRESSION: Unremarkable CTA of the head. ACT 112: Negative or not required by law. The above report was generated using voice recognition software. It may contain grammatical, syntax or spelling errors. Electronically signed by: Bubba Eckert M.D. 03/01/2022 3:38 PM Neck CTA 03/01/22 14:40 CT ANGIOGRAPHY OF THE NECK WITH CONTRAST CLINICAL HISTORY: Headache. Confusion. COMPARISON STUDY: CTA of the neck November 13, 2019. Technique: CT angiography of the carotid and vertebral arteries was obtained using Optiray and 3D reconstruction on an independent workstation. NASCET criteria was utilized. Automated exposure control was utilized for the study. A dose lowering technique was utilized adhering to the principles of ALARA. Findings: Visualized portions of the apices are unremarkable. There is no cervical lymphadenopathy. Several thyroid nodules measure up to 1.7 cm. The bilateral common carotid, cervical internal carotid and vertebral arteries are patent. There is minimal plaque within the proximal right internal carotid artery without stenosis. Mild dilatation of the distal cervical right internal carotid artery is unchanged. There is no dissection or aneurysm within the neck. IMPRESSION: No stenosis or dissection within the bilateral common carotid, cervical internal carotid or vertebral arteries. Minimal plaque. ACT 112: Negative or not required by law. Electronically signed by: Herrera Moffett M.D. 03/01/2022 3:43 PM ECG Additional Comments: No ECG available at the time of admission, will obtain one now Code Status & VTE Plan Code Status Full Code VTE Prophylaxis Plan VTE Prophylaxis will be ordered: Yes Supervising Physician Co-Signing Physician Notes I personally saw and examined the patient. I verified all gudino points and agree with Edgar Dean PA-C with the following exceptions and/or additions: 76 year old female with generalized illness for 3 days - mainly nausea/vomiting at night. Dysphasia now resolved, present for < 24 hours. No stroke seen on brain MRI. O/E HS1+2, no murmurs, Chest CTAB, Abdo SNT, no focal neurology on exam, normal speech evaluation A/P Dysphasia - concerning for TIA given no stroke on MRI - continue TIA workup as above. Nausea/vomiting - unclear cause of this at night, no infective signs/symptoms. ?GERD on lying down. Will hold off treatment currently and see if it recurs. PG Care Time/CCT Total # of Minutes Spent Total Time Spent with Patient: Total time spent is greater than 50% in coordination of care (as documented) at patient's floor/unit and/or counseling patient: [place] [address] Initial Inpt Care Lvl 1 Patient Type Established Medical Decision Making Moderate Complexity Diagnoses Stroke-like symptoms R29.90 Nausea & vomiting R11.2 Vomiting Intractability: non-intractable Vomiting type: unspecified Hypokalemia E87.6 Hypomagnesemia E83.42 Diabetes E11.9 Diabetes mellitus complication status: without complication Diabetes mellitus nursing home insulin use: without nursing home use Diabetes mellitus type: type 2 Benign essential hypertension I10 Parkinson disease G20 Essential tremor G25.0 Hypercholesterolemia E78.00 (1) Diabetes Diabetes mellitus complication status: without complication Diabetes mellitus director long term care insulin use: without director long term care use Diabetes mellitus type: type 2 Qualified Code(s): E11.9 - Type 2 diabetes mellitus without complications (2) Nausea & vomiting Vomiting Intractability: non-intractable Vomiting type: unspecified Qualified Code(s): R11.2 - Nausea with vomiting, unspecified
--- NOTE | 2022-03-01 17:01 | XRay Report ---
XR chest 1V portable CLINICAL HISTORY: stroke alert COMPARISON STUDY: Chest radiograph November 13, 2019. FINDINGS: No pneumothorax or pleural effusion is present. There is no consolidation to suggest pneumo drea. Cardiomediastinal silhouette is stable. There is pulmonary vascular congestion without overt pul monary edema. Severe osteoarthrosis of both glenohumeral joints is incidentally noted. IMPRESSION: Pulmonary vascular congestion without overt pulmonary edema. ACT 112: Negative or not required by law. Electronically signed by: Herrera Moffett M.D. 03/01/2022 4:59 PM
[2022-03-01] MEDS ORDERED: LACTATED RINGER'S 1,000 ML IV ONE (17:33)
--- NOTE | 2022-03-01 18:28 | Magnetic Resonance Report ---
MRI OF THE BRAIN WITHOUT CONTRAST CLINICAL HISTORY: Confusion. Dysphasia. COMPARISON STUDY: Head CT and CTA of the head performed earlier today. MRI of the brain November 13, 2019 . TECHNIQUE: Utilizing a 1.5 Leyda magnet and dedicated coil, multiplanar, multiecho imaging of the bra in was performed without IV contrast. FINDINGS: There are no foci of restricted diffusion to suggest acute infarct. No acute intracranial h emorrhage, midline shift or mass effect is present. Ventricular system is unremarkable. Basal cistern s are patent. There are no extra axial collections. Flow-voids for the major intracranial vessels are present. A 1.3 cm focus with peripheral T2 hypointensity within the right parisi radiata corresponds to a calcified abnormality on CT. This is unchanged since prior exams. This is benign. White matter T2 hyperintense foci suggest small vessel disease. Calvarial signal is within normal limits. IMPRESSION: No acute intracranial findings. ACT 112: Negative or not required by law. Electronically signed by: Herrera Moffett M.D. 03/01/2022 6:26 PM
--- NOTE | 2022-03-01 19:12 | Emergency Department Note ---
History of Present Illness General Chief complaint: Stroke/CVA Symptoms Stated complaint: POSSIBLE MINI STROKE YESTERDAY Time Seen by Provider: 03/01/22 14:37 History of Present Illness Provider complaint: Headache confusion and aphasia Onset (ago): day(s) 2 Associated symptoms: + headaches; no chest pain, no cough, no nausea/vomiting or no shortness of breath 76-year-old female presents emergency department with for headache con fusion and aphasia. is providing history. states that her symptoms began at noon yesterday. He denies any falls or trauma. No fevers. No vomiting. Home Medications Medication Instructions Recorded Confirmed Type cholecalciferol (vitamin D3) 25 2,000 units PO DAILY 05/06/19 03/01/22 History mcg (1,000 unit) capsule (Vitamin D3) multivitamin (Daily Multi-Vitamin 1 tab PO DAILY 01/21/20 03/01/22 History tablet) lisinopril 40 mg tablet 40 mg PO DAILY #90 tabs 03/12/21 03/01/22 Rx lancets 33 gauge (OneTouch Delica #100 ea 07/16/21 10/12/21 Rx Lancets) flash glucose sensor (FreeStyle #1 ea 09/14/21 10/12/21 Rx Bianca 14 Day Sensor kit) flash glucose scanning reader #8 ea 11/05/21 Rx (FreeStyle Bianca 14 Day [place]) pen needle, diabetic 31 gauge x #50 ea 11/24/21 Rx 1/4" (Comfort EZ Pen [place]) propranolol 120 mg capsule,24 120 mg PO DAILY #90 caps 12/07/21 03/01/22 Rx hr,extended release atorvastatin 40 mg tablet 40 mg PO DAILY #90 tabs 12/08/21 03/01/22 Rx pramipexole 0.25 mg tablet See Rx Instructions .Route .COMPLEX 02/03/22 03/01/22 History primidone 50 mg tablet See Rx Instructions .Route .COMPLEX 02/03/22 03/01/22 History amlodipine 10 mg tablet 10 mg PO QPM 03/01/22 03/01/22 History aspirin 81 mg tablet,delayed 81 mg PO DAILY 03/01/22 03/01/22 History release diclofenac sodium 1 % topical gel 2 g topical QID PRN Pain 03/01/22 03/01/22 History (Arthritis Pain (diclofenac)) gabapentin 100 mg capsule 100 mg PO TID 03/01/22 03/01/22 History glimepiride 4 mg tablet 4 mg PO BID 03/01/22 03/01/22 History insulin glargine 100 unit/mL (3 15 unit subcut QAM 03/01/22 03/01/22 History mL) subcutaneous pen (Lantus Solostar U-100 Insulin) semaglutide 1 mg/dose (2 mg/1.5 1 mg subcut WK 03/01/22 03/01/22 History mL) subcutaneous pen injector Allergies Allergy/AdvReac Type Severity Reaction Status Date / Time No Known Drug Allergies Allergy Unknown Verified 03/01/22 17:27 Past Med/Surg History Medical History Benign essential hypertension Cataract (lens) fragments in eye following cataract surgery Chronic constipation Diabetes mellitus, type 2 Essential tremor on primidone Gout no meds Hyperlipidemia Myalgia Osteoarthritis Vitamin D deficiency Surgical History History of colonoscopy History of right knee joint replacement History of tonsillectomy and adenoidectomy History of tooth extraction Ingrown toenail of right foot removal Family History Father , age 55 Family history of diabetes mellitus Myocardial infarction Hypertension Mother Coronary heart disease had CABG and from post-op complications; age 64 Hypertension Other No family history of adverse response to anesthesia Denies family history of Stroke Social History Smoking Status: Never smoker Second Hand Exposure: No ( smoked/father smoked); Hx Alcohol Use: No Hx Substance Use: No Preferred Language: Bulgarian Communication Ability: Effective Hearing Ability: Normal Production Artist Required: No Beliefs That Will Affect Care: None marital status: Current Living Situation: Spouse current occupational status: retired current occupation: did [employer] work in [employer] for 30 years How many Children do You have: 2 other: 2 children Feels Safe at Home: Yes Seatbelt Use: always Sunscreen Use: No Assistive Devices: Glasses and Walker Review of Systems Unobtainable due to cognitive status Physical Exam Vital Signs Vital Signs - 24 hr 03/01/22 14:27 03/01/22 15:30 03/01/22 16:56 Temperature 37 C Temperature Source Temporal Artery Scan Pulse Rate 90 Pulse Rate [Apical] 87 92 H Pulse Rhythm [Apical] Regular Pulse Strength [Apical] Normal Respiratory Rate 20 20 20 Respiratory Effort / Characteristics Non-Labored Spontaneous Non-Labored Spontaneous Non-Labored Spontaneous Respiratory Depth Normal Normal Normal Respiratory Pattern Regular Regular Regular Blood Pressure 166/103 H Blood Pressure [Right Arm] 192/102 H 175/107 H Blood Pressure Mean 124 Blood Pressure Mean [Right Arm] 132 129 Blood Pressure Position [Right Arm] Semi-fowlers Semi-fowlers Pulse Oximetry 95 96 99 Oxygen Delivery Method Room Air Room Air Room Air Sepsis Recent Fever Within 48 Hours No Sepsis New/Unexplained Change in Mental Status No Sepsis Action Taken by Nursing No Action Required 03/01/22 19:32 Temperature Temperature Source Pulse Rate 89 Pulse Rate [Apical] Pulse Rhythm [Apical] Pulse Strength [Apical] Respiratory Rate 20 Respiratory Effort / Characteristics Respiratory Depth Respiratory Pattern Blood Pressure 163/105 H Blood Pressure [Right Arm] Blood Pressure Mean Blood Pressure Mean [Right Arm] Blood Pressure Position [Right Arm] Pulse Oximetry 98 Oxygen Delivery Method Room Air Sepsis Recent Fever Within 48 Hours Sepsis New/Unexplained Change in Mental Status Sepsis Action Taken by Nursing Physical Exam HENT: Exam performed. -Head: Normocephalic and atraumatic. -Right Ear: External ear normal. No mastoid tenderness. -Left Ear: External ear normal. No mastoid tenderness. -Mouth/Throat: The oropharynx is clear and moist. No trismus in the jaw. No dental abscesses or uvula swelling. No oropharyngeal exudate or tonsillar abscesses. EYES: Conjunctivae and EOM are normal. Pupils are equal, round, and reactive to light. Right eye exhibits no discharge. Left eye exhibits no discharge. No scleral icterus. NECK: Normal range of motion. Neck supple. No JVD present. No spinous process tenderness present. No carotid bruit present. No rigidity. CV: Normal rate, regular rhythm, normal heart sounds and intact distal pulses. There is no peripheral edema. Palpable radial pulses bue. PULM/CHEST: Effort normal and breath sounds normal. No respiratory distress. No stridor. She has no wheezes. She has no rales. ABD: The abdomen is soft. MUSC/SKEL: Pelvis stable. NEURO: Mild to moderate expressive aphasia. Course Course 1437: The patient was evaluated in room B6. A complete history and physical exam was performed Cardiac monitoring: An order was placed for continuous cardiac monitoring. The monitor shows a rate of 90 with sinus rhythm No code stroke called as the patient is well outside the window for TNKase. 1645: Vital signs stable. Labs are within normal limits with the exception of magnesium of 1.5. Magnesium will be repleted in the emergency department. CT and CT angios of the head and neck do not show any occlusion or infarct. [facility] Dr. Carvalho notified. Administered Medications Discontinued Medications Lactated Ringer's (Lr) 1,000 mls @ 999 mls/hr IV .Q1H1M ONE Stop: 03/01/22 18:33 Last Admin: 03/01/22 18:56 Dose: 999 mls/hr Documented By: LUIGI Ioversol (Optiray 300 500ml) 106 ml IV ONCE ONE Stop: 03/01/22 15:27 Last Admin: 03/01/22 15:27 Dose: 106 ml Documented By: MOI Medical Decision Making Laboratory Data Result diagrams: 03/01/22 14:48 03/01/22 14:48 Lab Results 03/01/22 03/01/22 03/01/22 Range/Units 14:48 14:48 14:48 WBC 11.70 H (4.8-10.8) K/ul RBC 5.19 (3.93-5.22) M/uL Hgb 17.0 H (12.0-16.0) g/dl POC Hgb (12.0-16.0) g/dl Hct 46.9 H (34.1-44.9) % POC Hct (37-47) % MCV 90.4 (80.0-100.0) fL MCH 32.8 (25.0-34.0) pg MCHC 36.2 H (32.0-36.0) g/dL RDW Std Deviation 41.1 (36.4-46.3) fL RDW Coeff of Stacy 12.4 (11.5-14.5) % Plt Count 368 (130-400) K/uL MPV 8.2 L (9.4-12.3) fL PT 10.9 (9.0-12.0) Seconds INR 1.0 (0.9-1.1) APTT 24.8 (21.0-31.0) Seconds PTT Ratio 0.9 POC Sodium (135-144) mmol/L Sodium 133 L (136-145) mmol/L POC Potassium (3.3-5.0) mmol/L Potassium 3.2 L (3.5-5.1) mmol/L POC Chloride (101-112) mmol/L Chloride 92 L (98-107) mmol/L Carbon Dioxide 30 (21-32) mmol/L POC Total CO2 (24-31) mmol/L Anion Gap 11 (3-11) POC Anion Gap (16-25) mmol/L POC BUN (7-18) mg/dl BUN 15 (6-23) mg/dl Creatinine 1.00 (0.6-1.2) mg/dl POC Creatinine (0.6-1.3) mg/dl Est Cr Clr Drug Dosing 54.8 ml/min Est GFR ( Amer) 64.3 ml/min Est GFR (Non-Af Amer) 55.5 ml/min BUN/Creatinine Ratio 15.0 (10-20) Glucose 185 H (70-99(Fasting)) mg/dl POC Glucose (other) (70-99) mg/dl Calcium 9.7 (8.5-10.1) mg/dl POC Ioniz Calcium Van (1.12-1.32) mmol/l Magnesium 1.5 L (1.7-2.4) mg/dl Total Bilirubin 0.6 (0.2-1.0) mg/dl AST 26 (13-39) U/L ALT 39 (7-52) U/L Alkaline Phosphatase 72 (34-104) U/L Total Protein 7.4 (6.0-8.3) gm/dl Albumin 4.1 (3.4-5.0) gm/dl Globulin 3.3 (2.5-4.0) gm/dl Albumin/Globulin Ratio 1.2 (0.9-2) Lipase 19 (11-82) U/L Urine Color Urine Appearance (Clear) Urine pH (4.5-7.5) Ur Specific [place] (1.000-1.030) Urine Protein (Negative) Urine Glucose (UA) (Negative) Urine Ketones (Negative) Urine Blood (Negative) Urine Nitrite (Negative) Urine Bilirubin (Negative) Urine Urobilinogen (Negative) Ur Leukocyte Esterase (Negative) Urine WBC (Auto) (0-5) /hpf Urine RBC (Auto) (0-4) /hpf U Hyaline Cast (Auto) (0-5) /lpf U Epithel Cells (Auto) (0-5) /lpf Urine Bacteria (Auto) (Negative) SARS-CoV-2, RNA, NAAT (NEGATIVE) 03/01/22 03/01/22 03/01/22 Range/Units 14:56 16:43 16:47 WBC (4.8-10.8) K/ul RBC (3.93-5.22) M/uL Hgb (12.0-16.0) g/dl POC Hgb 17.3 H (12.0-16.0) g/dl Hct (34.1-44.9) % POC Hct 51 H (37-47) % MCV (80.0-100.0) fL MCH (25.0-34.0) pg MCHC (32.0-36.0) g/dL RDW Std Deviation (36.4-46.3) fL RDW Coeff of Stacy (11.5-14.5) % Plt Count (130-400) K/uL MPV (9.4-12.3) fL PT (9.0-12.0) Seconds INR (0.9-1.1) APTT (21.0-31.0) Seconds PTT Ratio POC Sodium 133 L (135-144) mmol/L Sodium (136-145) mmol/L POC Potassium 3.2 L (3.3-5.0) mmol/L Potassium (3.5-5.1) mmol/L POC Chloride 92 L (101-112) mmol/L Chloride (98-107) mmol/L Carbon Dioxide (21-32) mmol/L POC Total CO2 29 (24-31) mmol/L Anion Gap (3-11) POC Anion Gap 16.0 (16-25) mmol/L POC BUN 15 (7-18) mg/dl BUN (6-23) mg/dl Creatinine (0.6-1.2) mg/dl POC Creatinine 1.0 (0.6-1.3) mg/dl Est Cr Clr Drug Dosing ml/min Est GFR ( Amer) ml/min Est GFR (Non-Af Amer) ml/min BUN/Creatinine Ratio (10-20) Glucose (70-99(Fasting)) mg/dl POC Glucose (other) 178 H (70-99) mg/dl Calcium (8.5-10.1) mg/dl POC Ioniz Calcium Van 1.10 L (1.12-1.32) mmol/l Magnesium (1.7-2.4) mg/dl Total Bilirubin (0.2-1.0) mg/dl AST (13-39) U/L ALT (7-52) U/L Alkaline Phosphatase (34-104) U/L Total Protein (6.0-8.3) gm/dl Albumin (3.4-5.0) gm/dl Globulin (2.5-4.0) gm/dl Albumin/Globulin Ratio (0.9-2) Lipase (11-82) U/L Urine Color Yellow Urine Appearance Clear (Clear) Urine pH 7.0 (4.5-7.5) Ur Specific [place] 1.023 (1.000-1.030) Urine Protein 1+ H (Negative) Urine Glucose (UA) Negative (Negative) Urine Ketones Negative (Negative) Urine Blood Trace H (Negative) Urine Nitrite Negative (Negative) Urine Bilirubin Negative (Negative) Urine Urobilinogen Negative (Negative) Ur Leukocyte Esterase 1+ H (Negative) Urine WBC (Auto) 5-10 H (0-5) /hpf Urine RBC (Auto) 0-4 (0-4) /hpf U Hyaline Cast (Auto) 0 (0-5) /lpf U Epithel Cells (Auto) 20-30 H (0-5) /lpf Urine Bacteria (Auto) Negative (Negative) SARS-CoV-2, RNA, NAAT NEGATIVE (NEGATIVE) Imaging Data Radiologist's Impression: Chest X-Ray 03/01/22 14:34 XR chest 1V portable CLINICAL HISTORY: stroke alert COMPARISON STUDY: Chest radiograph November 13, 2019. FINDINGS: No pneumothorax or pleural effusion is present. There is no consoli dation to suggest pneumonia. Cardiomediastinal silhouette is stable. There is pulmonary vascular congestion without overt pulmonary edema. Severe osteoarthrosis of both glenohumeral joints is incidentally noted. IMPRESSION: Pulmonary vascular congestion without overt pulmonary edema. ACT 112: Negative or not required by law. Electronically signed by: Herrera Moffett M.D. 03/01/2022 4:[address] 03/01/22 14:34 CT SCAN OF THE BRAIN WITHOUT IV CONTRAST CLINICAL HISTORY: Strokelike symptoms. COMPARISON STUDY: CT of the brain dated 11/13/2019. TECHNIQUE: Unenhanced axial CT scan of the brain is performed from the vertex to the skull base. A dose lowering technique was utilized adhering to the principles of ALARA. CT DOSE: 788.63 mGycm FINDINGS: Brain parenchyma: There is age-related involutional change noting mild subcortical and periventricular microangiopathic disease. There is no hemorrhage, mass effect, or evidence of acute territorial ischemia by CT criteria. A calcification in the right parisi radiata is unchanged from previous. Villeda-white matter differentiation is preserved. No extra-axial fluid collection is seen. Ventricles, sulci, cisterns: Prominent secondary to involutional change. Intracranial vasculature: There is atherosclerotic calcification of the cavernous carotid and vertebral arteries. Calvarium: Unremarkable. Sinuses and mastoids: The visualized paranasal sinuses are clear. The mastoid air cells are well pneumatized. Orbits: The bony orbits are grossly intact. There is a right ocular lens implant. IMPRESSION: There is no hemorrhage, mass effect, or evidence of acute territorial ischemia by CT criteria. ACT 112: Negative or not required by law. Electronically signed by: Yves Topete M.D. 03/01/2022 3:33 PM Head CTA 03/01/22 14:40 CT angio head w con CLINICAL HISTORY: 76 years-old Female with cardenas confusion. Acute headache with confusion COMPARISON STUDY: Head CT of same day, brain MRI and head CT study 11/13/2019 TECHNIQUE: Following the IV administration of 106 cc of Optiray, CT angiogram of the brain was performed from the skull base to the vertex. Images are reviewed in the axial, sagittal, and coronal planes. 3-D MIPS images are created and assessed. IV contrast was administered without complication. All measurements were obtained according to NASCET criteria. A dose lowering technique was utili zed adhering to the principles of ALARA. CT DOSE: 1329.28 mGycm FINDINGS: The imaged bilateral internal carotid arteries are patent. The bilateral anterior and middle cerebral arteries are also patent. Developmentally dimi nutive right A1 segment. The vertebrobasilar system and posterior cerebral arteries are widely patent. There is no aneurysm, high-grade stenosis, or proximal branch occlusion identified. Dural sinuses appear patent. Unchanged 11 mm calcification within the right frontal lobe parisi radiata/posterior limb of the internal capsule. Involutional changes with white matter hypodensities suggestive of chronic microvascular ischemic disease. IMPRESSION: Unremarkable CTA of the head. ACT 112: Negative or not required by law. The above report was generated using voice recognition software. It may contain grammatical, syntax or spelling errors. Electronically signed by: Bubba Eckert M.D. 03/01/2022 3:38 PM Neck CTA 03/01/22 14:40 CT ANGIOGRAPHY OF THE NECK WITH CONTRAST CLINICAL HISTORY: Headache. Confusion. COMPARISON STUDY: CTA of the neck November 13, 2019. Technique: CT angiography of the carotid and vertebral arteries was obtained us ing Optiray and 3D reconstruction on an independent workstation. NASCET criteria was utilized. Automated exposure control was utilized for the study. A dose lowering technique was utilized adhering to the principles of ALARA. Findings: Visualized portions of the apices are unremarkable. There is no cervical lymphadenopathy. Several thyroid nodules measure up to 1.7 cm. The bilateral common carotid, cervical internal carotid and vertebral arteries are patent. There is minimal plaque within the proximal right internal carotid artery without stenosis. Mild dilatation of the distal cervical right internal carotid artery is unchanged. There is no dissection or aneurysm within the neck. IMPRESSION: No stenosis or dissection within the bilateral common carotid, cervical internal carotid or vertebral arteries. Minimal plaque. ACT 112: Negative or not required by law. Electronically signed by: Herrera Moffett M.D. 03/01/2022 3:43 PM Brain MRI 03/01/22 16:48 MRI OF THE BRAIN WITHOUT CONTRAST CLINICAL HISTORY: Confusion. Dysphasia. COMPARISON STUDY: Head CT and CTA of the head performed earlier today. MRI of the brain November 13, 2019. TECHNIQUE: Utilizing a 1.5 Leyda magnet and dedicated coil, multiplanar, multiecho imaging of the brain was performed without IV contrast. FINDINGS: There are no foci of restricted diffusion to suggest acute infarct. No acute intracranial hemorrhage, midline shift or mass effect is present. Ventricular system is unremarkable. Basal cisterns are patent. There are no extra axial collections. Flow-voids for the major intracranial vessels are present. A 1.3 cm focus with peripheral T2 hypointensity within the right parisi radiata corresponds to a calcified abnormality on CT. This is unchanged since prior exams. This is benign. White matter T2 hyperintense foci suggest small vessel disease. Calvarial signal is within normal limits. IMPRESSION: No acute intracranial findings. ACT 112: Negative or not required by law. Electronically signed by: Herrera Moffett M.D. 03/01/2022 6:26 PM ECG Data Indication: + other (cva) Rate (beats per minute): 85 Rhythm: + normal sinus ECG Intervals/blocks: + Normal UT and + Normal QT-c ECG ST segments: + Normal ST segments Additional Comments: QRS 72 MDM Narrative 1437: The patient was evaluated in room B6. A complete history and physical exam was performed Cardiac monitoring: An order was placed for continuous cardiac monitoring. The monitor shows a rate of 90 with sinus rhythm No code stroke called as the patient is well outside the window for TNKase. 1645: Vital signs stable. Labs are within normal limits with the exception of magnesium of 1.5. Magnesium will be repleted in the emergency department. CT and CT angios of the head and neck do not show any occlusion or infarct. Patient will be admitted to the [facility] hospitalist team for CVA work-up Dr. Carvalho notified. Impression & Plan Hypomagnesemia, Expressive aphasia Discharge Plan Visit Data Chief Complaint: Stroke/CVA Symptoms Stated Complaint: POSSIBLE MINI STROKE YESTERDAY ED Provider: Todd Wade Discharge Problem: Hypomagnesemia, Expressive aphasia Patient Disposition: Home - Self-Care Discharge Instructions Interventions: ED Discharge Assessment Last Done: 03/01/22 19:32 Forms Stand Alone Forms: My [facility], Virtual Emergency Department, Important Visit Information Prescriptions Prescriptions: No Action cholecalciferol (vitamin D3) [Vitamin D3] 25 mcg (1,000 unit) capsule 2,000 units PO DAILY lisinopril 40 mg tablet 40 mg PO DAILY Qty: 90 3RF (DME) lancets [OneTouch Delica Lancets] 33 gauge misc See Rx Instructions .Route Qty: 100 3RF Rx Instructions: check once daily As directed DX:E11.9 (DME) FreeStyle Bianca 14 Day Sensor Kit See Rx Instructions .Route Qty: 1 5RF Rx Instructions: As directed Dx E11.9 (DME) FreeStyle Bianca 14 Day [place] Misc See Rx Instructions .Route Qty: 8 3RF Rx Instructions: As directed E11.9 (DME) pen needle, diabetic [Comfort EZ Pen [place]] 31 gauge x 1/4" needle See Rx Instructions .Route Qty: 50 3RF Rx Instructions: As directed propranolol 120 mg capsule,extended release 24 hr 120 mg PO DAILY Qty: 90 1RF atorvastatin 40 mg tablet 40 mg PO DAILY Qty: 90 1RF Hold Instructions: myalgias primidone 50 mg tablet See Rx Instructions .ROUTE .COMPLEX Rx Instructions: 1 po in am 3 po in PM; pramipexole 0.25 mg tablet See Rx Instructions .ROUTE .COMPLEX Rx Instructions: 0.25 mg orally ;1 po in am 2 po in pm; multivitamin [Daily Multi-Vitamin] Tablet 1 tab PO DAILY aspirin 81 mg Tablet,Delayed Release (Dr/Ec) 81 mg PO DAILY gabapentin 100 mg capsule 100 mg PO TID amlodipine 10 mg tablet 10 mg PO QPM glimepiride 4 mg tablet 4 mg PO BID Rx Instructions: Take 1 tablet by mouth twice daily insulin glargine [Lantus Solostar U-100 Insulin] 100 unit/mL (3 mL) insulin pen 15 unit subcut QAM diclofenac sodium [Arthritis Pain (diclofenac)] 1 % gel 2 g topical QID PRN (Reason: Pain) Rx Instructions: apply to single elbow, wrist or hand; for hand includes palm/fingers/back of hand semaglutide 1 mg/dose (2 mg/1.5 mL) pen injector 1 mg subcut WK Rx Instructions: TAKES ON SATURDAYS. Referrals Referrals: Pool Calixto MD [Primary Care Provider] - (Follow-up in 1-7 days.)
[2022-03-01] MEDS ORDERED: GLUCOSE 40% GEL 15 GM TUBE PO PRN (20:12)
[2022-03-01] MEDS ORDERED: ACETAMINOPHEN 325 MG TAB PO PRN (20:12)
[2022-03-01] MEDS ORDERED: DEXTROSE 50% 50 ML SYRINGE IV PRN (20:12)
[2022-03-01] MEDS ORDERED: MAGNESIUM SULFATE / D5W 1 GM/100 ML BAG IV ONE (20:12)
[2022-03-01] MEDS ORDERED: CARBOHYDRATES FOR HYPOGLYCEMIA PO PRN (20:12)
[2022-03-01] MEDS ORDERED: GLUCOSE 10 TAB/TUBE PO PRN (20:12)
[2022-03-01] MEDS ORDERED: PHARMACIST DISCHARGE MED REC CONSULT PRN (20:12)
[2022-03-01] MEDS ORDERED: GLUCAGON FOR INJ 1 MG VIAL SQ PRN (20:12)
[2022-03-01] MEDS ORDERED: PRAMIPEXOLE DIHYDROCHLO 0.5 MG TAB PO SCH (21:00)
[2022-03-01] MEDS ORDERED: ENOXAPARIN INJ 40 MG/0.4 ML SYR SQ SCH (21:00)
[2022-03-01] MEDS ORDERED: amLODIPine BESYLATE 5 MG TAB PO SCH (21:00)
[2022-03-01] MEDS ORDERED: PRIMIDONE 50 MG TAB PO SCH (21:00)
[2022-03-01 21:13] LABS: Chol HDL Ratio 5.7 (0-5)
[2022-03-01] MEDS: lisinopril 40 MG TAB PO SCH (22:08)
[2022-03-01] MEDS: GABAPENTIN 100 MG CAP PO SCH (22:08)
[2022-03-01] MEDS: ATORVASTATIN 40 MG TAB PO SCH (22:08)
[2022-03-01] MEDS: PROPRANOLOL HCL 60 MG LA CAP PO SCH (22:08)
[2022-03-01] MEDS: ASPIRIN 81 MG ECTAB PO SCH (22:09)
[2022-03-01] MEDS: INSULIN ASPART PER UNIT SC SCH (22:23)
[2022-03-01] MEDS: POTASSIUM CHLORIDE / WTR 10 MEQ/100 ML PLCT IV SCH (22:47)
[2022-03-02] MEDS: POTASSIUM CHLORIDE / WTR 10 MEQ/100 ML PLCT IV SCH ×2 (00:01→01:03)
[2022-03-02 07:28] LABS: Hematocrit (blood only) 42.9 % (34.1-44.9); Mean Corpuscular Hemoglobin 31.9 pg (25.0-34.0); Mean Corpuscular Volume 91.3 fL (80.0-100.0); Mean Platelet Volume 8.1 fL (9.4-12.3); Platelet Count 292 K/uL (130-400); RDW Coefficient of Variation 12.5 % (11.5-14.5); RDW Standard Deviation 41.4 fL (36.4-46.3); White Blood Count 8.86 K/ul (4.8-10.8)
[2022-03-02 08:25] LABS: BUN Creatinine Ratio 18.1 (10-20); Creatinine Clr Calc Pharmacy 66.1 ml/min; Est GFR (African American) 80.5 ml/min; Est GFR (Non-African American) 69.5 ml/min; Magnesium 1.7 mg/dl (1.7-2.4); Potassium 3.3 mmol/L (3.5-5.1)
--- NOTE | 2022-03-02 08:48 | Electrocardiogram Report ---
Test Reason : Blood Pressure : / mmHG Vent. Rate : 085 BPM Atrial Rate : 085 BPM P-R Int : 162 ms QRS Dur : 072 ms QT Int : 394 ms P-R-T Axes : 058 042 042 degrees QTc Int : 468 ms Poor data quality, interpretation may be adversely affected Normal sinus rhythm When compared with ECG of 13-NOV-2019 06:03, Premature ventricular complexes are no longer Present Confirmed by Doroteo Camacho ([id number]) on 03/02/2022 8:48:09 AM Referred By: Pool Calixto Confirmed By:Tomas Camacho
--- NOTE | 2022-03-02 08:57 | XCELERA ---
[id number]
[2022-03-02] MEDS: INSULIN ASPART PER UNIT SC SCH ×2 (08:58→11:46)
[2022-03-02] MEDS: ATORVASTATIN 40 MG TAB PO SCH (09:00)
[2022-03-02] MEDS ORDERED: PRIMIDONE 50 MG TAB PO SCH (09:00)
[2022-03-02] MEDS ORDERED: PRAMIPEXOLE DIHYDROCHLO 0.25 MG TAB PO SCH (09:00)
[2022-03-02] MEDS ORDERED: LANTUS PER UNIT CHARGE SQ SCH (09:00)
[2022-03-02] MEDS ORDERED: POTASSIUM CHLORIDE CRTAB 20 MEQ TABCR PO SCH (09:00)
[2022-03-02] MEDS ORDERED: MULTIVITAMIN TAB PO SCH (09:00)
[2022-03-02] MEDS: lisinopril 40 MG TAB PO SCH (09:01)
[2022-03-02] MEDS: PROPRANOLOL HCL 60 MG LA CAP PO SCH (09:01)
[2022-03-02] MEDS: GABAPENTIN 100 MG CAP PO SCH (09:01)
[2022-03-02] MEDS: ASPIRIN 81 MG ECTAB PO SCH (09:02)
--- NOTE | 2022-03-02 12:52 | Neurology Consultation ---
Date of Consultation March 02, 2022 Assessment & Plan (1) TIA (transient ischemic attack): (2) Cerebral cavernoma: (3) Benign essential hypertension: (4) Diabetic neuropathy: Plan 76-year-old female with an incidental heavily calcified cavernoma within the right parisi radiata, asymmetric benign essential tremor, right greater than left hand, and diabetic peripheral neuropathy, presenting with an episode of of expressive aphasia, without associated hemiparesis or other acute neurologic symptoms. Her CT angiography of the head and neck are unremarkable, without evidence of significant vascular lesion. Patient's echocardiogram unremarkable as well, no cardioembolic source. She does not have a known history of atrial fibrillation. She does have several stroke risk factors, however, including hypertension, hyperlipidemia, and insulin-dependent diabetes mellitus. Her daily low-dose aspirin and atorvastatin have been continued. However, I would recommend adding clopidogrel 75 mg/day for 3 weeks, followed by transition to clopidogrel monotherapy for secondary stroke risk reduction going forward. Would also recommend 14 or 30-day mobile cardiac outpatient telemetry. I would not make any changes in this patient's primidone or pramipexole. (See below regarding pramipexole.) I do not think she has Parkinson's disease, however. She does follow with Dr. Barnard, a neurologist in [place], and may continue to do so after discharge. I see that she is on propranolol as well, this medication may be for both her tremor as well as for management of hypertension. She may continue with this medication. I also note that she has been experiencing nausea and vomiting for the past few days. Although this symptom may be related to gastroenteritis, would also consider discontinuing her Mirapex as this medication may sometimes provoke nausea. History of Present Illness Reason for Consultation: Strokelike symptoms Requesting Physician: Edgar Dean PA-C Attending Physician: Micah Mullins MD History of Present Illness The patient is a 76-year-old female with a chief complaint of word finding difficulty and headache beginning acutely on February 28, at noon, day prior to her assessment in the emergency department. She denied experiencing other associated neurologic symptoms such as vision loss, diplopia, sensory loss, or hemiparesis. She does follow with Dr. Barnard, a neurologist in [place], for tremor/parkinsonism, diabetic peripheral neuropathy. As an outpatient she takes daily low-dose aspirin, atorvastatin, antihypertensives, and insulin. She has been moderately hypertensive in the context of this hospitalization although did have a significantly elevated blood pressure, 192/102 yesterday, improved today. A CT of the brain was negative for hemorrhage or acute process. There is a chronic calcification within the right parisi radiata. A CT angiogram of the head was unremarkable. A CT angiogram of the neck was unremarkable as well. A follow-up brain MRI was negative for acute or subacute infarct, no hemorrhage. There is a 1.3 cm focus of T2 hypointensity within the right parisi radiata corresponding with a calcified abnormality that was seen on CT of the head. This calcified nodule has been observed on multiple images including head CTs, and brain MRIs done at [facility] dating back through at least 2018. Lesion is probably consistent with a calcified cavernoma. Follow-up imaging suggests benign pathology given lack of significant interval change. Allergies Allergy/AdvReac Type Severity Reaction Status Date / Time No Known Drug Allergies Allergy Unknown Verified 03/01/22 17:27 Home Medications Medication Instructions Recorded Confirmed Type cholecalciferol (vitamin D3) 25 2,000 units PO DAILY 05/06/19 03/01/22 History mcg (1,000 unit) capsule (Vitamin D3) multivitamin (Daily Multi-Vitamin 1 tab PO DAILY 01/21/20 03/01/22 History tablet) lisinopril 40 mg tablet 40 mg PO DAILY #90 tabs 03/12/21 03/01/22 Rx lancets 33 gauge (OneTouch Delica #100 ea 07/16/21 10/12/21 Rx Lancets) flash glucose sensor (FreeStyle #1 ea 09/14/21 10/12/21 Rx Bianca 14 Day Sensor kit) flash glucose scanning reader #8 ea 11/05/21 Rx (FreeStyle Bianca 14 Day [place]) pen needle, diabetic 31 gauge x #50 ea 11/24/21 Rx 1/4" (Comfort EZ Pen [place]) propranolol 120 mg capsule,24 120 mg PO DAILY #90 caps 12/07/21 03/01/22 Rx hr,extended release atorvastatin 40 mg tablet 40 mg PO DAILY #90 tabs 12/08/21 03/01/22 Rx pramipexole 0.25 mg tablet See Rx Instructions .Route .COMPLEX 02/03/22 03/01/22 History primidone 50 mg tablet See Rx Instructions .Route .COMPLEX 02/03/22 03/01/22 H istory amlodipine 10 mg tablet 10 mg PO QPM 03/01/22 03/01/22 History aspirin 81 mg tablet,delayed 81 mg PO DAILY 03/01/22 03/01/22 History release diclofenac sodium 1 % topical gel 2 g topical QID PRN Pain 03/01/22 03/01/22 History (Arthritis Pain (diclofenac)) gabapentin 100 mg capsule 100 mg PO TID 03/01/22 03/01/22 History glimepiride 4 mg tablet 4 mg PO BID 03/01/22 03/01/22 History insulin glargine 100 unit/mL (3 15 unit subcut QAM 03/01/22 03/01/22 History mL) subcutaneous pen (Lantus Solostar U-100 Insulin) semaglutide 1 mg/dose (2 mg/1.5 1 mg subcut WK 03/01/22 03/01/22 History mL) subcutaneous pen injector Patient History Medical History Benign essential hypertension Cataract (lens) fragments in eye following cataract surgery Chronic constipation Diabetes mellitus, type 2 Essential tremor on primidone Gout no meds Hyperlipidemia Myalgia Osteoarthritis Vitamin D deficiency Surgical History History of colonoscopy History of right knee joint replacement History of tonsillectomy and adenoidectomy History of tooth extraction Ingrown toenail of right foot removal Family History Father , age 55 Family history of diabetes mellitus Myocardial infarction Hypertension Mother Coronary heart disease had CABG and from post-op complications; age 64 Hypertension Other No family history of adverse response to anesthesia Denies family history of Stroke Social History Smoking Status: Never smoker Second Hand Exposure: No ( smoked/father smoked); Hx Alcohol Use: No Hx Substance Use: No Preferred Language: Indonesian Communication Ability: Effective Hearing Ability: Normal Banquet Waiter/Waitress Required: No Beliefs That Will Affect Care: None marital status: Current Living Situation: Spouse current occupational status: retired current occupation: did [employer] work in [place] for 30 years How many Children do You have: 2 other: 2 children Feels Safe at Home: Yes Safety Concerns: Feels Safe At This Time Seatbelt Use: always Sunscreen Use: No Assistive Devices: Cane and Walker Review of Systems Constitutional: no fever and no chills Eyes: no blind spots and no diplopia Ear, Nose, Mouth, Throat: no ear pain and no tinnitus Respiratory: no cough and no dyspnea Cardiovascular: no chest pain and no palpitations Gastrointestinal: + nausea and + vomiting Genitourinary: no dysuria Musculoskeletal: no back pain, no neck pain and no myalgia Integumentary: no rash and no lesions Neurologic: as per Subjective / HPI Psychiatric: no depression and no anxiety Hematologic / Lymphatic: no easy bleeding and no easy bruising Exam (Neuro) Constitutional: well developed and well nourished; no acute distress Eyes: normal visual munoz by confrontation, PERRL, normal accommodation and EOM intact bilaterally; no fundoscopic abnormality, no nystagmus and no papilledema Cardiovascular: Vessels: normal carotid upstroke; no carotid bruit Neurologic: Oriented to:: Person, Place and Time Memory: Short Term Intact and Remote Intact Attention: Span Intact and Concentration Intact Language: Naming Objects and Repeating Phrases Speech Fluency: negative Dysarthria Speech Aphasia: negative Aphasia Fund of Knowledge: Current Events, Past History and Vocabulary Cranial Nerves: Normal II (Visual munoz full to confrontation, visual acuity normal), III, IV, (Pupils equal round reactive to light and accommodation, eye movements normal), V (Facial sensation intact), VII (There is no facial droop or weakness), VIII (Hearing intact), IX, X (Palate elevates to midline), XI (Shoulder shrug intact) and XII (Tongue protrudes to midline) Motor Strength: Normal Lower Extremities and Normal Upper Extremities; negative Pronator Drift Motor Tone: Normal Lower Extr emities and Normal Upper Extremities Rigidity: None Muscle Bulk/Involuntary Movements: Action Tremor (R>L); negative Muscle Atrophy, Pill Rolling Tremor or Head Tremor Sensation: Light Touch Intact and Proprioception Intact; negative Pain/Temperature Intact or Vibration Intact Coordination: Normal; negative Limited Balance, Dysdiadochokinesia, Finger-Nose Abnormal or Heel-Parker Abnormal Deep Tendon Reflexes: Rt Triceps: 1+, Lt Triceps: 1+, Rt Biceps: 1+, Lt Biceps: 1+, Rt Brachioradialis: 1+, Lt Brachioradialis: 1+, Rt Patellar: 1+, Lt Patellar: 1+, Rt Ankle: 1+ and Lt Ankle: 1+ Special Tests: negative Babinski Present Details: Gait not tested in the context of patient's current neurological status. Results & Data ([facility]) Vital Signs (Past 12 Hours) Vital Signs Temp Pulse Pulse Resp BP BP Pulse Ox 03/02/22 12:31 82 03/02/22 12:01 36.9 C 76 20 143/85 H 92 03/02/22 11:51 03/02/22 09:00 37.2 C 79 18 135/87 94 03/02/22 04:00 36.9 C 79 20 146/82 H 95 O2 Del Method 03/02/22 12:31 03/02/22 12:01 Room Air 03/02/22 11:51 Room Air 03/02/22 09:00 Room Air 03/02/22 04:00 Room Air Laboratory Results WBC 8.86, hemoglobin 15.0, hematocrit 42.9, MCV 91.3, platelet count 292, sodium 133, potassium 3.3, BUN 15, creatinine 0.83, glucose 163, calcium 9.0, magnesium 1.7, AST 26, ALT 39, triglycerides 207, cholesterol 273, LDL 184, VLDL 41, HDL 48, SARS-CoV-[address] of the head, CT angiography of the head and neck, and brain MRI are as described in the history of present illness. I independently reviewed the images as well as the radiology reports. An echocardiogram was negative for cardioembolic source, no interatrial shunt. Normal left ventricular systolic function. Left atrium normal size. Electrocardiogram revealed a normal sinus rhythm, 85 bpm. Coding Level of Care Code 48384 Initial Inpt Care Lvl 3 Diagnoses TIA (transient ischemic attack) G45.9 Cerebral cavernoma Q28.3 Benign essential hypertension I10 Diabetic neuropathy E11.40
[2022-03-02] MEDS ORDERED: STROKE PATIENT DISCHARGE STA (12:59)
--- NOTE | 2022-03-02 14:14 | Pharmacy Report ---
Pharmacist Stroke Counseling - Date of Service March 02, 2022 - Scope: Pharmacy has been consulted to provide medication discharge counseling for this patient admitted with transient ischemic attack as per the Pharmacist Discharge Counseling for Stroke Patients Protocol. - Medications on Discharge: Home Medications Medication Instructions Recorded Confirmed cholecalciferol (vitamin D3) 25 2,000 units PO DAILY 05/06/19 03/01/22 mcg (1,000 unit) capsule (Vitamin D3) multivitamin (Daily Multi-Vitamin 1 tab PO DAILY 01/21/20 03/01/22 tablet) pramipexole 0.25 mg tablet See Rx Instructions .Route .COMPLEX 02/03/22 03/01/22 primidone 50 mg tablet See Rx Instructions .Route .COMPLEX 02/03/22 03/01/22 amlodipine 10 mg tablet 10 mg PO QPM 03/01/22 03/01/22 diclofenac sodium 1 % topical gel 2 g topical QID PRN Pain 03/01/22 03/01/22 (Arthritis Pain (diclofenac)) gabapentin 100 mg capsule 100 mg PO TID 03/01/22 03/01/22 glimepiride 4 mg tablet 4 mg PO BID 03/01/22 03/01/22 insulin glargine 100 unit/mL (3 15 unit subcut QAM 03/01/22 03/01/22 mL) subcutaneous pen (Lantus Solostar U-100 Insulin) semaglutide 1 mg/dose (2 mg/1.5 1 mg subcut WK 03/01/22 03/01/22 mL) subcutaneous pen injector New Rx's Medication Instructions Recorded lisinopril 40 mg tablet 40 mg PO DAILY #90 tabs 03/12/21 lancets 33 gauge (OneTouch Delica #100 ea 07/16/21 Lancets) flash glucose sensor (FreeStyle #1 ea 09/14/21 Bianca 14 Day Sensor kit) flash glucose scanning reader #8 ea 11/05/21 (FreeStyle Bianca 14 Day [place]) pen needle, diabetic 31 gauge x #50 ea 11/24/21 1/" (Comfort EZ Pen [place]) propranolol 120 mg capsule,24 120 mg PO DAILY #90 caps 12/07/21 hr,extended release atorvastatin 40 mg tablet 40 mg PO DAILY #90 tabs 12/08/21 aspirin 81 mg tablet,delayed 81 mg PO DAILY #21 tabs 03/02/22 release clopidogrel 75 mg tablet (Plavix) 75 mg PO DAILY #30 tabs 03/02/22 - Action: The above medications, specifically ones for stroke treatment/prophylaxis, have been reviewed in detail with the patient and/or patient and her prior to discharge. This includes indication, common adverse reactions, drug int eractions, and medication administration. Medication counseling has been employed using the teach-back method to ensure understanding. - Outcome: The patient and her have demonstrated understanding of the medications, especially to take both aspirin and plavix x3 weeks together, then just plavix. Additional comments: Thank you for allowing pharmacy to be involved in the care of this patient. Please call [phone] with any additional questions
--- NOTE | 2022-03-02 18:55 | Discharge Summary ---
Date of Service March 02, 2022 Admission HPI Per Admitting Provider Ratna is a 76 year old female with a PMH significant for parkinsons's disease, essential tremor, DM II, hypokalemia, HTN, hypercholesterolemia, BPV, and BL leg pain who presented to the [facility] ED on 03/01/22 with concern's for stroke-like symptoms. Per the ED staff, the patient has been experiencing slurred speech/expressive aphasia since yesterday around noon. In the ED the patient was noted to be afebrile, hemodynamically stable, and stable on room air. Labs were remarkable for a leukocytosis of 11.7, potassium of 3.2 with a magnesium of 1.5, UA was in process at the time of admission. Chest xray was negative for acute findings. CT and CTA of the head were negative for acute findings. CTA of the neck showed "No stenosis or dissection within the bilateral common carotid, cervical internal carotid or vertebral arteries. Minimal plaque". The patient was not a candidate for TNK as her last well know was greater than 4 hours. We were asked to admit the patient to continue her stroke workup. At the time of the exam the patient was resting in bed in no acute distress with her sitting bedside. History was obtained from the patient and her . The patient has been experiencing nausea for the past three days. Yesterday, prior to her episodes of confusion the patient experienced approximately 4 episodes of non-bloody emesis. The patient also developed a frontal headahce, The patient's states that during this time and after the patient had intermittent episodes where she would not respond to him and "stare off" for moments. They deny any episodes of changes in vision, hearing, taste, or smell, convulsions, loss of bowel or bladder function, facial droop, or new weakness. She has a history of parkinson's disease and essential tremor. At baseline her right upper extremity has a more severe tremor than her left upper extremity. When asked, they state that they did not check her blood sugar yesterday or today. Her did give her her am dose of glargine this m orning. They state that she has not been eating well over the past 3 days due to her nausea and vomiting. The patient and her deny any history of seizures and previous episodes similar to yesterday. She denies recent abdominal pain and dysuria but does note that her urine has been darker and foul-smelling. Per her , the patient appears to be back to her neurologic baseline at the time of the exam. Principal Diagnosis tia Discharge Exam The patient appeared stable Vital signs as documented. Lungs are clear to auscultation and appear unlabored Cardiac exam, Rhythm is regular.. No murmurs, rubs or gallops. Abdominal exam reveals normal bowel sounds, soft non tender, no masses Extremities are nonedematous and both pedal pulses are normal. Neurologic exam is alert and oriented, no focal loss of strength or sensation Skin is without bruises or rashes Psychologically is without concerns for anxiety or depression. Discharge Data Allergies Allergy/AdvReac Type Severity Reaction Status Date / Time No Known Drug Allergies Allergy Unknown Verified 03/01/22 17:27 Consultations 03/01/22 16:43 ED Decision to Admit Stat 03/01/22 20:12 Consult Neurology Routine Ordered Studies 03/01/22 14:34 CT head/brain wo con Stat 03/01/22 14:40 CT angio head w con Stat CT angio neck with con Stat 03/01/22 16:48 MRI Brain [MR brain wo con] Stat Hospital Course (1) Stroke-like symptoms: TIA. CT head and CTA head/neck were negative for acute findings. normal MRI of the brain, TTE without embolic source, and lipid panel with some elevation -Patient has been on aspirin and statin prior to these episodes neurology recommends 21 days overlap plavix and aspirin, then stop aspirin, keep atorvastatin at 40 mg will need outpt multiday event monitor -Chest xray negative for acute findings, (2) Nausea & vomiting: -resolved (3) Hypokalemia: -replete (4) Hypomagnesemia: replete (5) Diabetes: -Normally on 15 units Glargine in the am, daily Glimepiride weekly semaglutide -resume home diabetic medical regimen (6) Benign essential hypertension: -Continue amlodipine and lisinopril (7) Parkinson disease: -At baseline neurologic status per -Continue Pramipexole and primidone (8) Essential tremor: -Continue propranolol -Continue gabapentin for chronic BL neuropathy (9) Hypercholesterolemia: -Continue atorvaststin Plan The patient was discussed with Dr. Carvalho at the time of the admission Total Time Total Time Spent Total Time Spent (In Minutes): It required greater than 30 minutes to prepare this patient for discharge Discharge Plan Discharge Items Patient Disposition: Home - Self-Care Reason For Visit: STROKE SYMPTOMS Discharge Diagnosis: TIA POSSIBLE UTI POA Activity: Resume your previous activity Non-emergency contact: Primary Care Provider Call non-emergency contact if: your symptoms worsen Follow-up/Referrals: Pool Calixto MD [Primary Care Provider] - 03/08/22 2:00 pm Diet: Carb Consistent or DM2 Addtl Attending Provider Instructions: YOU DID NOT HAVE A STROKE BUT A THREATENING ONE, CALLED A TIA The neurologist recommended plavix a new medicaiton for three weeks in conjunction with the aspirin then stop the aspirin and continue on plavix only 75 mg once a day Risk Factors for Stroke: You can reduce your chances of stroke by working with your medical provider to adopt a healthy lifestyle. Some specific ways to lower your chance of stroke are: * If you are a smoker, now is the time to stop smoking cigarettes * If you are diabetic, improve the control of your blood sugars * Avoid excessive amounts of alcohol * Control high blood pressure * Lose weight if you are overweight * Be sure to lead an active lifestyle * Eat a healthy diet low in salt, cholesterol and fat You should know about other risk factors for stroke that you are unable to control. These include: * Age 55 years or older * Male gender * Certain racial groups: , or / * Family History of Stroke, Mini stroke or Heart Attack * Sickle Cell Disease Follow Up: It is important for you to keep your follow up appointments with your medical provider. Who to Call and When: Medical Emergencies: Call 911 immediately if you experience any of the following warning signs and symptoms of Stroke: * Sudden numbness or weakness of the face, arm or leg, especially on one side of the body * Sudden confusion, trouble speaking or understanding * Sudden trouble seeing in one or both eyes * Sudden trouble walking, dizziness, loss of balance or coordination * Sudden severe headache with no cause Do not delay calling 911 if you experience any warning signs or symptoms of a stroke. Delay in seeking medical attention may affect what treatments can be given to you. . Pending Studies at Discharge: Yes (URINE CULTURE ) Stand-Alone Forms: Medications to Prevent Stroke, [employer], Smoking Cessation Medications and DC Order Prescriptions: New clopidogrel [Plavix] 75 mg tablet 75 mg PO DAILY Qty: 30 6RF Continued cholecalciferol (vitamin D3) [Vitamin D3] 25 mcg (1,000 unit) capsule 2,000 units PO DAILY lisinopril 40 mg tablet 40 mg PO DAILY Qty: 90 3RF (DME) lancets [OneTouch Delica Lancets] 33 gauge misc See Rx Instructions .Route Qty: 100 3RF Rx Instructions: check once daily As directed DX:E11.9 (DME) FreeStyle Bianca 14 Day Sensor Kit See Rx Instructions .Route Qty: 1 5RF Rx Instructions: As directed Dx E11.9 (DME) FreeStyle Bianca 14 Day [place] Misc See Rx Instructions .Route Qty: 8 3RF Rx Instructions: As directed E11.9 (DME) pen needle, diabetic [Comfort EZ Pen [place]] 31 gauge x 1/4" needle See Rx Instructions .Route Qty: 50 3RF Rx Instructions: As directed propranolol 120 mg capsule,extended release 24 hr 120 mg PO DAILY Qty: 90 1RF atorvastatin 40 mg tablet 40 mg PO DAILY Qty: 90 1RF Hold Instructions: myalgias primidone 50 mg tablet See Rx Instructions .ROUTE .COMPLEX Rx Instructions: 1 po in am 3 po in PM; pramipexole 0.25 mg tablet See Rx Instructions .ROUTE .COMPLEX Rx Instructions: 0.25 mg orally ;1 po in am 2 po in pm; multivitamin [Daily Multi-Vitamin] Tablet 1 tab PO DAILY gabapentin 100 mg capsule 100 mg PO TID amlodipine 10 mg tablet 10 mg PO QPM glimepiride 4 mg tablet 4 mg PO BID Rx Instructions: Take 1 tablet by mouth twice daily insulin glargine [Lantus Solostar U-100 Insulin] 100 unit/mL (3 mL) insulin pen 15 unit subcut QAM diclofenac sodium [Arthritis Pain (diclofenac)] 1 % gel 2 g topical QID PRN (Reason: Pain) Rx Instructions: apply to single elbow, wrist or hand; for hand includes palm/fingers/back of hand semaglutide 1 mg/dose (2 mg/1.5 mL) pen injector 1 mg subcut WK Rx Instructions: TAKES ON SATURDAYS. aspirin 81 mg Tablet,Delayed Release (Dr/Ec) 81 mg PO DAILY Qty: 21 0RF Rx Instructions: Stop after 3 weeks Discharge Orders: Discharge Order (Routine); Ordered 03/02/22 Ordered By: Micah Mullins Admission Data Admit Date/Time: 03/01/22 17:29 Attending Provider: Micah Mullins Admit Provider: Hiro Carvalho Primary Care Provider: Pool Calixto Other Providers: Hiro Carvalho ; Reza Tavares ; Damaso Reis ; Corina Rodriguez ; Janeen Chamberlain ; Terrence Shanks ; Janeen Dickerson ; Jeffrey Huynh ; Guadalupe Garcia ; Yordy Boudreaux ; Faye Carbone ; Rosetta Winters Other Interventions: Discharge Summary Assessment (RN) Last Done: 03/02/22 13:11 Coding Level of Care Code D/C DAY MANAGEMENT >30 MINS Diagnoses Stroke-like symptoms R29.90 Nausea & vomiting R11.2 Vomiting Intractability: non-intractable Vomiting type: unspecified Hypokalemia E87.6 Hypomagnesemia E83.42 Diabetes E11.9 Diabetes mellitus type: type 2 Diabetes mellitus [facility] insulin use: without [facility] use Diabetes mellitus complication status: without complication Benign essential hypertension I10 Parkinson disease G20 Essential tremor G25.0 Hypercholesterolemia E78.00
== END 2022-03-02 15:17 | disposition home or self-care (01) ==
LOC: ED 14:13 → 2W 17:29 → INTOOBSV 17:29 → SUATTDRO 17:29 → 2W 19:32

== ENCOUNTER 2023-10-23 20:13 | Observation (INO) ==
--- NOTE | 2023-10-23 20:36 | Emergency Department Note ---
History of Present Illness General Chief complaint: Wrist Pain Stated complaint: R WRIST/HAND PAIN Time Seen by Provider: 10/23/23 20:19 History of Present Illness Maximum Pain Intensity: 10 This is a 78-year-old female that presents to the emergency department via private vehicle accompanied by with complaints of "right hand/wrist pain". The patient notes that today when she awoke around 6:30 AM she noticed right hand/wrist pain. She points to the radial aspect of the right wrist as the location of discomfort. She notes it is red, swollen and hot to the touch. She denies any fevers, chills, nausea, vomiting, chest pain or shortness of breath but notes that she feels "sick". Patient denies ever having this happen before. No history of gout. Current pain 03/07. Mild improvement of pain with rest and worse with active range of motion of the right wrist. Home Medications Medication Instructions Recorded Confirmed Type multivitamin (Daily Multi-Vitamin 1 tab PO QAM 01/21/20 10/24/23 History tablet) lancets 33 gauge (OneTouch Delica #100 ea 07/16/21 10/24/23 Rx Lancets) pen needle, diabetic 31 gauge x #50 ea 01/20/23 10/24/23 Rx 1/4" (Comfort EZ Pen Heth) amlodipine 10 mg tablet 10 mg PO QPM #90 tabs 01/25/23 10/23/23 Rx Sphignometer #1 ea 06/13/23 10/24/23 Rx pen needle, diabetic 31 gauge x #20 ea 06/19/23 10/24/23 Rx 1/4" (Lite Touch Insulin Pen Heth) insulin glargine 100 unit/mL (3 20 unit (0.2 mL) subcut QPM #15 mL 07/03/23 10/24/23 Rx mL) subcutaneous pen (Lantus Solostar U-100 Insulin) blood-glucose meter,continuous #1 ea 07/07/23 10/24/23 Rx (FreeStyle Bianca 3 Waterproof) blood-glucose sensor (FreeStyle #8 ea 07/07/23 10/24/23 Rx Bianca 3 Sensor device) aspirin 81 mg tablet,delayed 81 mg PO QAM 07/20/23 10/23/23 History release (Ecotrin Low Strength) primidone 50 mg tablet 50 mg PO .COMPLEX #240 tabs 09/18/23 10/24/23 Rx propranolol 20 mg tablet 20 mg PO HS 09/18/23 10/24/23 History semaglutide 1 mg/dose (4 mg/3 mL) 1 mg (0.75 mL) subcut .weekly #3 mL 10/20/23 10/23/23 Rx subcutaneous pen injector (Ozempic) chlorthalidone 25 mg tablet 25 mg PO QAM 10/23/23 10/23/23 History cholecalciferol (vitamin D3) 50 100 mcg PO QAM 10/23/23 10/23/23 History mcg (2,000 unit) capsule (Vitamin D3) empagliflozin 25 mg tablet 25 mg PO QAM 10/23/23 10/23/23 History (Jardiance) ezetimibe 10 mg tablet (Zetia) 10 mg PO QAM 10/23/23 10/23/23 History rosuvastatin 40 mg tablet (Crestor) 40 mg PO QAM 10/23/23 10/23/23 History lisinopril 40 mg tablet 40 mg PO QAM 10/24/23 10/24/23 History spironolactone 25 mg tablet 25 mg PO QAM 10/24/23 10/24/23 History Allergies Allergy/AdvReac Type Severity Reaction Status Date / Time No Known Drug Allergies Allergy Unknown Verified 10/20/23 08:11 Past Med/Surg History Problem List (Updated 10/24/23 @ 01:48 by Vladimir Solorio PA-C) CRP elevated (Acute) Elevated erythrocyte sedimentation rate (Acute) Acute pain of right wrist (Acute) Lymphangitis Cellulitis (Acute) Urinary incontinence Uncontrolled hypertension Bruising Edema Constipation Edema of both lower legs Hypomagnesemia Cerebral cavernoma TIA (transient ischemic attack) Myalgia Arthralgia Hypokalemia Myalgia Vitamin D deficiency Musculoskeletal immobility Acute shoulder pain Parkinson disease Right sided sciatica Osteoarthritis, shoulder Right shoulder pain Benign positional vertigo Abnormal urinalysis Hypoxia Vertigo Dizziness (Acute) Nausea & vomiting (Acute) Hypomagnesemia (Acute) Hypokalemia (Acute) Diabetic neuropathy (Acute) Hypercholesterolemia (Chronic) Hypercholesterolemia check lipid profile currently on pravastatin 20 milligrams at bedtime. Diabetes (Chronic) April [address] [facility] and was normal. Patient will have hemoglobin A1c. Increase glimepiride to 4 mg the morning 2 mg in the evening and continue metformin 1000 mg twice a day. Precordial chest pain (Acute) Precordial chest pain atypical in that is not with exertion but is been occurring for the last 4 months on off lasting only 5 minutes. Patient will have regular treadmill stress test and his instructed start a baby aspirin 81 mg once daily. Patient will hold her propranolol the day of her treadmill stress test. Benign essential hypertension Essential tremor (Acute) on primidone Medical History Cataract (lens) fragments in eye following cataract surgery Chronic constipation Vitamin D deficiency Diabetes mellitus, type 2 Osteoarthritis Hyperlipidemia Gout no meds Surgical History History of colonoscopy Ingrown toenail of right foot removal History of tooth extraction History of tonsillectomy and adenoidectomy History of right knee joint replacement Family History Father Family history of diabetes mellitus Myocardial infarction Hypertension Mother Coronary heart disease Hypertension Other No family history of adverse response to anesthesia Denies family history of Stroke Social History Smoking Status: Never smoker Second Hand Exposure: No ( smoked/father smoked); Do You Dip or Chew Tobacco: No; Hx Alcohol Use: No Hx Substance Use: No Preferred Language: Lao Communication Ability: Effective Hearing Ability: Normal 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 Beliefs That Will Affect Care: None marital status: Current Living Situation: Spouse current occupational status: retired current occupation: did [employer] work in [place] for 30 years How many Children do You have: 2 other: 2 children Feels Safe at Home: Yes Seatbelt Use: always Sunscreen Use: No Assistive Devices: Cane and Walker Review of Systems A total of 10 systems reviewed and were otherwise negative Physical Exam Vital Signs Vital Signs - 24 hr 10/23/23 20:15 10/23/23 22:12 10/23/23 22:12 Temperature 36.8 C Temperature Source Temporal Artery Scan Pulse Rate 107 H 106 H Pulse Rate [Apical] 106 H Pulse Rate from SpO2 Sensor Pulse Rhythm [Apical] Regular Respiratory Rate 17 18 18 Respiratory Depth Normal Blood Pressure 181/90 H Blood Pressure Mean 120 Pulse Oximetry 91 92 92 Oxygen Delivery Method Room Air Room Air Room Air Oxygen Flow Rate Sepsis Recent Fever Within 48 Hours No Sepsis New/Unexplained Change in Mental Status No Sepsis Action Taken by Nursing No Action Required Oxygen Flow Rate - Titration Pulse Oximetry Post Tiitration 10/23/23 22:13 10/23/23 22:14 10/23/23 22:20 Temperature Temperature Source Pulse Rate 107 H 106 H 106 H Pulse Rate [Apical] Pulse Rate from SpO2 Sensor 107 H 106 H Pulse Rhythm [Apical] Respiratory Rate 17 18 Respiratory Depth Blood Pressure Blood Pressure Mean Pulse Oximetry 91 90 Oxygen Delivery Method Oxygen Flow Rate Sepsis Recent Fever Within 48 Hours Sepsis New/Unexplained Change in Mental Status Sepsis Action Taken by Nursing Oxygen Flow Rate - Titration Pulse Oximetry Post Tiitration 10/23/23 22:30 10/23/23 22:40 10/23/23 22:47 Temperature Temperature Source Pulse Rate 96 H 95 H 97 H Pulse Rate [Apical] Pulse Rate from SpO2 Sensor 97 H 94 H 97 H Pulse Rhythm [Apical] Respiratory Rate 15 20 20 Respiratory Depth Blood Pressure Blood Pressure Mean Pulse Oximetry 92 89 L 92 Oxygen Delivery Method Oxygen Flow Rate Sepsis Recent Fever Within 48 Hours Sepsis New/Unexplained Change in Mental Status Sepsis Action Taken by Nursing Oxygen Flow Rate - Titration Pulse Oximetry Post Tiitration 10/23/23 22:47 10/23/23 22:50 10/23/23 23:00 Temperature Temperature Source Pulse Rate 94 H 97 H Pulse Rate [Apical] Pulse Rate from SpO2 Sensor 93 H 93 H Pulse Rhythm [Apical] Respiratory Rate 17 13 Respiratory Depth Blood Pressure 189/96 H 158/87 H Blood Pressure Mean 120 110 Pulse Oximetry 90 93 Oxygen Delivery Method Room Air Oxygen Flow Rate Sepsis Recent Fever Within 48 Hours Sepsis New/Unexplained Change in Mental Status Sepsis Action Taken by Nursing Oxygen Flow Rate - Titration Pulse Oximetry Post Tiitration 10/23/23 23:10 10/23/23 23:20 10/23/23 23:30 Temperature Temperature Source Pulse Rate 95 H 95 H 96 H Pulse Rate [Apical] Pulse Rate from SpO2 Sensor 93 H 91 H 95 H Pulse Rhythm [Apical] Respiratory Rate 15 16 15 Respiratory Depth Blood Pressure 196/92 H Blood Pressure Mean 126 Pulse Oximetry 93 93 88 L Oxygen Delivery Method Room Air Oxygen Flow Rate Sepsis Recent Fever Within 48 Hours Sepsis New/Unexplained Change in Mental Status Sepsis Action Taken by Nursing Oxygen Flow Rate - Titration Pulse Oximetry Post Tiitration 10/23/23 23:40 10/23/23 23:40 10/23/23 23:50 Temperature Temperature Source Pulse Rate 94 H 96 H Pulse Rate [Apical] Pulse Rate from SpO2 Sensor 94 H 88 Pulse Rhythm [Apical] Respiratory Rate 18 15 Respiratory Depth Blood Pressure Blood Pressure Mean Pulse Oximetry 89 L 96 97 Oxygen Delivery Method Nasal Cannula Oxygen Flow Rate 0 2 Sepsis Recent Fever Within 48 Hours Sepsis New/Unexplained Change in Mental Status Sepsis Action Taken by Nursing Oxygen Flow Rate - Titration 2 Pulse Oximetry Post Tiitration 96 10/24/23 00:00 10/24/23 00:10 10/24/23 00:20 Temperature Temperature Source Pulse Rate 93 H 97 H 91 H Pulse Rate [Apical] Pulse Rate from SpO2 Sensor 92 H 97 H 90 Pulse Rhythm [Apical] Respiratory Rate 20 18 22 Respiratory Depth Blood Pressure 192/93 H Blood Pressure Mean 126 Pulse Oximetry 95 97 97 Oxygen Delivery Method Oxygen Flow Rate Sepsis Recent Fever Within 48 Hours Sepsis New/Unexplained Change in Mental Status Sepsis Action Taken by Nursing Oxygen Flow Rate - Titration Pulse Oximetry Post Tiitration 10/24/23 00:30 10/24/23 00:40 10/24/23 00:50 Temperature Temperature Source Pulse Rate 91 H 88 86 Pulse Rate [Apical] Pulse Rate from SpO2 Sensor 90 84 86 Pulse Rhythm [Apical] Respiratory Rate 19 17 17 Respiratory Depth Blood Pressure 173/85 H Blood Pressure Mean 114 Pulse Oximetry 97 96 95 Oxygen Delivery Method Oxygen Flow Rate Sepsis Recent Fever Within 48 Hours Sepsis New/Unexplained Change in Mental Status Sepsis Action Taken by Nursing Oxygen Flow Rate - Titration Pulse Oximetry Post Tiitration 10/24/23 01:00 Temperature Temperature Source Pulse Rate 87 Pulse Rate [Apical] Pulse Rate from SpO2 Sensor 82 Pulse Rhythm [Apical] Respiratory Rate 19 Respiratory Depth Blood Pressure 140/78 Blood Pressure Mean 98 Pulse Oximetry 95 Oxygen Delivery Method Nasal Cannula Oxygen Flow Rate 2 Sepsis Recent Fever Within 48 Hours Sepsis New/Unexplained Change in Mental Status Sepsis Action Taken by Nursing Oxygen Flow Rate - Titration Pulse Oximetry Post Tiitration VITAL SIGNS - Vital signs and nursing notes were reviewed. Stable and afebrile. GENERAL -78-year-old female appearing her stated age who is in no acute distress. Communicates well with provider and answers questions appropriately. SKIN -there is edema noted to the right wrist circumferentially but more pronounced overlying the radial aspect. There is diffuse erythema noted overlying the right radial wrist region extending proximally within lymphangitic streaking characterized as a line of erythema from the right wrist tracking to the right elbow. Right wrist is hot to the touch. No crepitus or fluctuance. HEAD - NC/AT. EYES - Sclera anicteric. LUNGS - CTA CARDIAC - RRR EXTREMITIES - No clubbing or peripheral cyanosis. Skin as above. Decreased active range of motion of the right wrist secondary to pain. Right radial pulse within normal limits. Cap refill of all digits of the right hand within normal limits. There are no wounds or scratches/lacerations noted. No fluctuance or crepitus. +5/5 strength noted in UE/LE bilaterally. NEUROLOGIC -sensory intact to light touch throughout the right upper extremity without deficit PSYCH -alert, oriented and pleasant on exam Course Administered Medications Sodium Chloride (Nss) 500 mls @ 125 mls/hr IV .Q4H [facility] Stop: 11/22/23 23:44 Last Admin: 10/24/23 00:07 Dose: 125 mls/hr Documented By: FANTA Discontinued Medications Acetaminophen (Acetaminophen 325 Mg Tab) 650 mg PO NOW STA Stop: 10/23/23 23:54 Last Admin: 10/24/23 00:05 Dose: 650 mg Documented By: FANTA Cefepime HCl (Maxipime) 20 mls @ 5 mls/min IV NOW STA; Protocol Stop: 10/23/23 22:33 Last Admin: 10/23/23 22:42 Dose: 5 mls/min Documented By: CLARITA Morphine Sulfate (Morphine Sulfate 2 Mg/Ml Carp) 1 mg IV NOW STA Stop: 10/23/23 21:31 Last Admin: 10/23/23 22:03 Dose: 1 mg Documented By: CLARITA Medical Decision Making Laboratory Data 10/23/23 21:02 10/23/23 21:02 Lab Results 10/23/23 Range/Units 21:02 WBC 11.06 H (4.8-10.8) K/ul RBC 4.75 (4.20-5.40) M/uL Hgb 15.0 (12.0-16.0) g/dl Hct 44.0 (37.0-47.0) % MCV 92.6 (80.0-100.0) fL MCH 31.6 (25.0-34.0) pg MCHC 34.1 (32.0-36.0) g/dL RDW Std Deviation 43.7 (36.4-46.3) fL RDW Coeff of Stacy 12.8 (11.5-14.5) % Plt Count 277 (130-400) K/uL MPV 8.6 L (9.4-12.4) fL Immature Gran % (Auto) 0.5 % Neut % (Auto) 76.8 % Lymph % (Auto) 14.8 % [place] % (Auto) 6.9 % Eos % (Auto) 0.6 % Baso % (Auto) 0.4 % Neut # (Auto) 8.50 H (1.40-6.50) K/uL Lymph # (Auto) 1.64 (1.20-3.40) K/uL [place] # (Auto) 0.76 H (0.11-0.59) K/uL Eos # (Auto) 0.07 (0.00-0.50) K/uL Baso # (Auto) 0.04 (0.00-0.20) K/uL Immature Gran # (Auto) 0.05 (0.01-0.20) K/uL ESR 49 H (0-30) mm/hr PT 10.4 (9.0-12.0) Seconds INR 1.0 (0.9-1.1) APTT 25 (21-31) Seconds PTT Ratio 0.9 Sodium 133 L (136-145) mmol/L Potassium 3.8 (3.5-5.1) mmol/L Chloride 93 L (98-107) mmol/L Carbon Dioxide 30 (21-32) mmol/L Anion Gap 10 (3-11) BUN 19 (6-23) mg/dl Creatinine 0.93 (0.6-1.2) mg/dl Est Cr Clr Drug Dosing 59.7 ml/min Est GFR ( Amer) 69.2 ml/min Est GFR (Non-Af Amer) 59.7 ml/min BUN/Creatinine Ratio 20.4 H (10-20) Glucose 267 H (70-99(Fasting)) mg/dl Lactate 2.0 (0.4-2.0) mmol/L Uric Acid 4.4 (2.6-7.2) mg/dl Calcium 9.7 (8.6-10.3) mg/dl Total Bilirubin 0.4 (0.2-1.0) mg/dl AST 16 (13-39) U/L ALT 19 (7-52) U/L Alkaline Phosphatase 67 (34-104) U/L C-Reactive Protein 3.36 H (0-0.5) mg/dl Total Protein 7.6 (6.0-8.3) gm/dl Albumin 4.0 (3.4-5.0) gm/dl Globulin 3.6 (2.5-4.0) gm/dl Albumin/Globulin Ratio 1.1 (0.9-2) Procalcitonin 0.05 (0-0.5) ng/ml Lyme Disease Screen Negative (Negative) Imaging Data My Impression: Right wrist: Per my interpretation: No fracture. Well-corticated ossific density just distal to the radial styloid with similar calcific abnormalities noted also distal to the ulna within the wrist joint. No dislocation. Soft tissue swelling noted. Radiologist's Impression: Venous Doppler Study 10/23/23 20:57 Exam(s): US VENOUS RIGHT UPPER EXTREMITY EXAM: US Duplex Right Upper Extremity Veins CLINICAL HISTORY: Reason for exam: atraumatic R wrist edema, lymphangitic streaking. TECHNIQUE: Real-time duplex ultrasound scan of the right upper extremity veins integrating B-mode two-dimensional vascular structure, Doppler spectral analysis, color flow Doppler imaging and compression. COMPARISON: No relevant prior studies available. FINDINGS: Deep veins: Unremarkable. No DVT in the internal jugular, subclavian, axillary, or brachial veins. The veins demonstrate normal color flow, are normally compressible, with normal phasic flow and/or augmentation response. Superficial veins: Unremarkable. No thrombus in the visualized basilic and cephalic veins. Soft tissues: No acute findings. IMPRESSION: No evidence of deep vein thrombus. Moderate right wrist soft tissue edema with small fluid collection. Electronically signed by: Padmini Carlton MD 10/23/23 23:47 PM MDM Narrative Patient was seen and evaluated as above in room D05. Review was performed of triage nursing notes and vital signs. A thorough history and physical examination was performed. Patient presents to us today for evaluation of right wrist pain. On assessment there is erythema, edema and increased warmth to the radial aspect of the right wrist with lymphangitic streaking tracking proximal to the level of the right elbow. Patient is mildly tachycardic on arrival. She also feels "sick". Options of care were discussed with the patient. IV access was established. Labs were drawn. Leukocytosis 11.06. No anemia. ESR and CRP are elevated. Mild hyponatremia at 133. Glucose 267. Lactate normal. Pro-Denys 0.05. Lyme screen negative. Uric acid normal. Right wrist x-ray was performed per my interpretation reveals:No fracture. Well-corticated ossific density just distal to the radial styloid with similar calcific abnormalities noted also distal to the ulna within the wrist joint. No dislocation. Soft tissue swelling noted. An ultrasound was also performed of the right upper extremity to rule out DVT. No evidence of DVT noted per radiologist but there is moderate right wrist soft tissue edema with small fluid collection noted. Upon review of the ultrasound images it appears that there is a fluid collection simple in nature perhaps synovial fluid adjacent to the tendon on the ventral aspect of the wrist. On assessment of the patient there is no break in the integument overlying this area. At this time we will cover with antibiotics noting the findings on examination. Blood cultures pending. Plan at this time is admission to the hospital for further evaluation and management. Case discussed with the hospitalist service. Please refer to further documentation regarding her stay. During her time here she was ordered IV analgesia, IV antibiotics, oral acetaminophen and IV fluids. GCS: 15 In the evaluation and treatment of this patient the following differential diagnoses were entertained: TFCC injury, tenosynovitis, septic joint, gout, Lyme disease, cellulitis, among others Impression & Plan Acute pain of right wrist, Elevated erythrocyte sedimentation rate, CRP elevated, Cellulitis Discharge Plan Visit Data Chief Complaint: Wrist Pain Stated Complaint: R WRIST/HAND PAIN ED Provider: Nell Jarrett ED Midlevel Provider: Vladimir Solorio Discharge Problem: Acute pain of right wrist, Elevated erythrocyte sedimentation rate, CRP elevated, Cellulitis Patient Disposition: Admitted As Inpatient Condition: Good Forms Stand Alone Forms: Work/School Release (ED), [facility] Prescriptions Prescriptions: No Action (DME) lancets [OneTouch Delica Lancets] 33 gauge misc See Rx Instructions .Route Qty: 100 3RF Rx Instructions: check once daily As directed DX:E11.9 (DME) pen needle, diabetic [Comfort EZ Pen Heth] 31 gauge x 1/4" needle See Rx Instructions .Route Qty: 50 3RF Rx Instructions: As directed amlodipine 10 mg tablet 10 mg PO QPM Qty: 90 3RF (DME) Sphignometer large cuff See Rx Instructions .Route .MEDSUPPLY Qty: 1 0RF Rx Instructions: As directed (DME) pen needle, diabetic [Lite Touch Insulin Pen Heth] 31 gauge x 1/4" needle See Rx Instructions .Route Qty: 20 3RF Rx Instructions: As directed weekly for Ozempic insulin glargine [Lantus Solostar U-100 Insulin] 100 unit/mL (3 mL) insulin pen 20 unit subcut QPM Qty: 15 2RF (DME) FreeStyle Bianca 3 Waterproof Misc See Rx Instructions .Route Qty: 1 0RF Rx Instructions: As directed (DME) FreeStyle Bianca 3 Sensor Device See Rx Instructions .Route Qty: 8 3RF Rx Instructions: change sensor every 14 days primidone 50 mg tablet 50 mg PO .COMPLEX Qty: 240 5RF Rx Instructions: 50 mg orally 2 tabs in the morning, 2 tabs in the afternoon, 4 tabs in the evening multivitamin [Daily Multi-Vitamin] Tablet 1 tab PO QAM propranolol 20 mg tablet 20 mg PO HS Ozempic 1 mg/dose (4 mg/3 mL) pen injector 1 mg subcut .weekly Qty: 3 5RF Rx Instructions: order just changed and pharmacy doesnt have it aspirin [Ecotrin Low Strength] 81 mg tablet,delayed release (DR/EC) 81 mg PO QAM chlorthalidone 25 mg tablet 25 mg PO QAM Jardiance 25 mg tablet 25 mg PO QAM cholecalciferol (vitamin D3) [Vitamin D3] 50 mcg (2,000 unit) Capsule 100 mcg PO QAM ezetimibe [Zetia] 10 mg tablet 10 mg PO QAM rosuvastatin [Crestor] 40 mg tablet 40 mg PO QAM lisinopril 40 mg tablet 40 mg PO QAM spironolactone 25 mg tablet 25 mg PO QAM Referrals Referrals: Pool Calixto MD [Primary Care Provider] -
[2023-10-23 21:28] LABS: Basophils # (auto) 0.04 K/uL (0.00-0.20); Basophils % (auto) 0.4 %; Eosinophils # (auto) 0.07 K/uL (0.00-0.50); Eosinophils % (auto) 0.6 %; Immature Granulocytes # (auto) 0.05 K/uL (0.01-0.20); Immature Granulocytes % (auto) 0.5 %; Lymphocytes # (auto) 1.64 K/uL (1.20-3.40); Lymphocytes % (auto) 14.8 %; Mean Corpuscular Hemoglobin 31.6 pg (25.0-34.0); Mean Corpuscular Hgb Conc 34.1 g/dL (32.0-36.0); Mean Corpuscular Volume 92.6 fL (80.0-100.0); Mean Platelet Volume 8.6 fL (9.4-12.4); Monocytes # (auto) 0.76 K/uL (0.11-0.59); Monocytes % (auto) 6.9 %; Neutrophils % (auto) 76.8 %; Platelet Count 277 K/uL (130-400); RDW Coefficient of Variation 12.8 % (11.5-14.5); RDW Standard Deviation 43.7 fL (36.4-46.3); Red Blood Count 4.75 M/uL (4.20-5.40); White Blood Count 11.06 K/ul (4.8-10.8)
[2023-10-23 21:37] LABS: Albumin Globulin Ratio 1.1 (0.9-2); BUN Creatinine Ratio 20.4 (10-20); Bilirubin,Total 0.4 mg/dl (0.2-1.0); Calcium 9.7 mg/dl (8.6-10.3); Creatinine Clr Calc Pharmacy 59.7 ml/min; Est GFR (African American) 69.2 ml/min; Est GFR (Non-African American) 59.7 ml/min; Globulin 3.6 gm/dl (2.5-4.0); Potassium 3.8 mmol/L (3.5-5.1); Total Protein 7.6 gm/dl (6.0-8.3); Uric Acid 4.4 mg/dl (2.6-7.2)
[2023-10-23 21:47] LABS: Partial Thromboplastin Ratio 0.9; Partial Thromboplastin Time 25 Seconds (21-31); Prothrombin Time 10.4 Seconds (9.0-12.0)
[2023-10-23 21:55] LABS: Procalcitonin 0.05 ng/ml (0-0.5)
[2023-10-23] MEDS: MoRPHine SULFATE 2 MG/ML CARP IV STA (22:03)
[2023-10-23 22:20] LABS: Lyme Screen Rflx Confirmation Negative (Negative)
[2023-10-23] MEDS ORDERED: CEFEPIME 2,000 MG in SYRINGE 0 ML IV STA (22:25)
[2023-10-23 22:29] LABS: C Reactive Protein 3.36 mg/dl (0-0.5)
[2023-10-23] MEDS: CEFEPIME 20 ML IV STA (22:42)
--- NOTE | 2023-10-23 22:50 | History & Physical Report ---
Date of Service October 23, 2023 Assessment & Plan (1) Cellulitis: (2) Lymphangitis: (3) Parkinson disease: (4) Essential tremor: (5) Benign positional vertigo: (6) Diabetes: (7) Benign essential hypertension: (8) Hypercholesterolemia: Mitchel Segundo is a 78F w/ PMH of HTN, Parkinson disease w/ tremor, osteoarthritis, BPPV, and T2DM w/ neuropathy who presented for evaluation of wrist pain. Cellulitis w/ Lymphangitis to R Wrist - Wrist XR w/o acute Fx - Venous Doppler No evidence of deep vein thrombus. Moderate right wrist soft tissue edema with small fluid collection. - Evidence of edema to the radial aspect of R wrist w/ overlying and ascending erythema - Patient endorsing fevers/chills w/o additional systemic symptoms - No known provoking factor - Mild leukocytosis w/ elevated CRP and negative procalcitonin on presentation - Lyme screen negative - S/p Cefepime in ED, continue on admission given DM hx, will cover for MRSA w/ Doxycycline, MRSA nares pending - Pain mgmt w/ Tylenol for Pain 1-10 and Morphine for breakthrough, adjust regimen PRN - Would consider Orthopedics consult tor evaluation of joint if no improvement w/ IV antibiotics Chronic Conditions - HTN: continue home Amlodipine, chlorthalidone, and lisinopril - PD/essential tremor: continue home primidone and propranolol - T2DM: home medications held, continue Lantus, SSI inpatient - HLD: continue home zetia and crestor FEN: HH/DM2 IVF; mIVF Code status: Full Code DVT ppx: Ambulation Isolation: None Dispo:Med/Surg History of Present Illness Chief Complaint: Wrist Pain Primary Care Provider: Pool Calixto MD Ratna is a 78F w/ PMH of HTN, Parkinson disease w/ tremor, osteoarthritis, BPPV, and T2DM w/ neuropathy who presented for evaluation of wrist pain. Patient notes that yesterday evening (10/22) she began to have an aching sensation in her right wrist (dominant hand), but that today, it progressed into significant pain at the joint with swelling and redness. She has never had anything similar occur. She has no history of trauma to the joint, abrasions, overuse, or bug bites. She does note she was outside more this past weekend. , who was present at bedside, notes that she helps him put on his nkechi stockings and that it is often a struggle, but that is the only thing he can recall that she would be 'overdoing it'. Patient notes that she has had subjective fever/chills over the last day, but denies any chest pain, dyspnea, nausea, abdominal pain, or bowel/bladder changes. She notes that she was recently started on Jardiance for her DM and that her A1c has gone up slightly (to 8.8), but otherwise none of her medications have changed. She has tried elevation, ice, and compression at home without benefit, thus she presented to the ED. ED Course: Morphine, Cefepime Allergies Allergy/AdvReac Type Severity Reaction Status Date / Time No Known Drug Allergies Allergy Unknown Verified 10/20/23 08:11 Home Medications Medication Instructions Recorded Confirmed Type multivitamin (Daily Multi-Vitamin 1 tab PO QAM 01/21/20 10/24/23 History tablet) lancets 33 gauge (OneTouch Delica #100 ea 07/16/21 10/24/23 Rx Lancets) pen needle, diabetic 31 gauge x #50 ea 01/20/23 10/24/23 Rx 1/4" (Comfort EZ Pen [place]) amlodipine 10 mg tablet 10 mg PO QPM #90 tabs 01/25/23 10/23/23 Rx Sphignometer #1 ea 06/13/23 10/24/23 Rx pen needle, diabetic 31 gauge x #20 ea 06/19/23 10/24/23 Rx 1/4" (Lite Touch Insulin Pen [place]) insulin glargine 100 unit/mL (3 20 unit (0.2 mL) subcut QPM #15 mL 07/03/23 10/24/23 Rx mL) subcutaneous pen (Lantus Solostar U-100 Insulin) blood-glucose meter,continuous #1 ea 07/07/23 10/24/23 Rx (FreeStyle Bianca 3 [place]) blood-glucose sensor (FreeStyle #8 ea 07/07/23 10/24/23 Rx Bianca 3 Sensor device) aspirin 81 mg tablet,delayed 81 mg PO QAM 07/20/23 10/23/23 History release (Ecotrin Low Strength) primidone 50 mg tablet 50 mg PO .COMPLEX #240 tabs 09/18/23 10/24/23 Rx propranolol 20 mg tablet 20 mg PO HS 09/18/23 10/24/23 History semaglutide 1 mg/dose (4 mg/3 mL) 1 mg (0.75 mL) subcut .weekly #3 mL 10/20/23 10/23/23 Rx subcutaneous pen injector (Ozempic) chlorthalidone 25 mg tablet 25 mg PO QAM 10/23/23 10/23/23 History cholecalciferol (vitamin D3) 50 100 mcg PO QAM 10/23/23 10/23/23 History mcg (2,000 unit) capsule (Vitamin D3) empagliflozin 25 mg tablet 25 mg PO QAM 10/23/23 10/23/23 History (Jardiance) ezetimibe 10 mg tablet (Zetia) 10 mg PO QAM 10/23/23 10/23/23 History rosuvastatin 40 mg tablet (Crestor) 40 mg PO QAM 10/23/23 10/23/23 History lisinopril 40 mg tablet 40 mg PO QAM 10/24/23 10/24/23 History meloxicam 15 mg tablet 15 mg PO DAILY #30 tabs 10/24/23 Rx spironolactone 25 mg tablet 25 mg PO QAM 10/24/23 10/24/23 History Past Med/Surg History Problem List (Updated 10/24/23 @ 13:13 by Doroteo Montoya MD) Chondrocalcinosis CRP elevated (Acute) Elevated erythrocyte sedimentation rate (Acute) Acute pain of right wrist (Acute) Lymphangitis Cellulitis (Acute) Urinary incontinence Uncontrolled hypertension Bruising Edema Constipation Edema of both lower legs Hypomagnesemia Cerebral cavernoma TIA (transient ischemic attack) Myalgia Arthralgia Hypokalemia Myalgia Vitamin D deficiency Musculoskeletal immobility Acute shoulder pain Parkinson disease Right sided sciatica Osteoarthritis, shoulder Right shoulder pain Benign positional vertigo Abnormal urinalysis Hypoxia Vertigo Dizziness (Acute) Nausea & vomiting (Acute) Hypomagnesemia (Acute) Hypokalemia (Acute) Diabetic neuropathy (Acute) Hypercholesterolemia (Chronic) Hypercholesterolemia check lipid profile currently on pravastatin 20 milligrams at bedtime. Diabetes (Chronic) April 2018 at [facility] and was normal. Patient will have hemoglobin A1c. Increase glimepiride to 4 mg the morning 2 mg in the evening and continue metformin 1000 mg twice a day. Precordial chest pain (Acute) Precordial chest pain atypical in that is not with exertion but is been occurring for the last 4 months on off lasting only 5 minutes. Patient will have regular treadmill stress test and his instructed start a baby aspirin 81 mg once daily. Patient will hold her propranolol the day of her treadmill stress test. Benign essential hypertension Essential tremor (Acute) on primidone Medical History Cataract (lens) fragments in eye following cataract surgery Chronic constipation Vitamin D deficiency Diabetes mellitus, type 2 Osteoarthritis Hyperlipidemia Gout no meds Surgical History History of colonoscopy Ingrown toenail of right foot removal History of tooth extraction History of tonsillectomy and adenoidectomy History of right knee joint replacement Family History Father , age 55 Family history of diabetes mellitus Myocardial infarction Hypertension Mother Coronary heart disease had CABG and from post-op complications; age 64 Hypertension Other No family history of adverse response to anesthesia Denies family history of Stroke Social History Smoking Status: Never smoker Second Hand Exposure: No ( smoked/father smoked); Do You Dip or Chew Tobacco: No; Hx Alcohol Use: No Hx Substance Use: No Preferred Language: Yi Communication Ability: Effective Hearing Ability: Normal Manager Environmental Health And Safety Required: No Beliefs That Will Affect Care: None marital status: Current Living Situation: Spouse current occupational status: retired current occupation: did [employer] work in [place] for 30 years How many Children do You have: 2 other: 2 children Feels Safe at Home: Yes Seatbelt Use: always Sunscreen Use: No Assistive Devices: Cane and Walker Physical Exam Physical Exam: Gen: NAD, alert, interactive HEENT: Supple, no LAD, no thyromegaly, no JVD Resp:Non-labored, no wheezing/rhonchi/rales, CTAB CV:RRR, normal S1/S2, no M/R/G Lower Extr: 2+ dp bilaterally, no edema Upper Extr: 2+ dp bilaterally, sensation intact bilaterally, no LAD hand to axilla bilaterally - R hand strength 4/5 (d/t pain), increa sed swelling to the radial aspect of the wrist joint w/ overlying erythema - Demarcated line of erythema ascending from the R wrist to the elbow Results & Data Results & Data Vital Signs (Past 12 Hours) Vital Signs Temp Pulse Pulse Resp BP Pulse Ox O2 Del Method 10/23/23 22:14 106 H 10/23/23 22:12 106 H 18 92 Room Air 10/23/23 22:12 106 H 18 92 Room Air 10/23/23 20:15 36.8 C 107 H 17 181/90 H 91 Room Air Supervising Physician Co-Signing Physician Notes Attending addendum: I have physically seen this patient, have supervised the medical residents activities, and agree with the H&P unless as otherwise noted. Assessment and Plan: Right thumb cellulitis/ascending lymphangitis- Generally feeling unwell Follow blood culture and sensitivity X-ray without signs of fracture Venous Doppler negative for DVT, but does note moderate right wrist soft tissues edema with small fluid collection Tickborne studies pending Status post cefepime in ED Doxycycline 100 mg IV every 12 hours Pain management as noted with Tylenol and morphine Hypertension- Continue amlodipine, chlorthalidone and lisinopril with hold parameters Diabetes mellitus- Continue Lantus with SSI coverage Hold other outpatient medications Remaining orders and notations as noted Resident Activity Tracking Resident Involvement: Resident Care Provided Care Provided: Adult Hospital Medicine (Night) (6) Diabetes Diabetes mellitus complication status: without complication Diabetes mellitus fdc insulin use: without fdc use Diabetes mellitus type: type 2 Qualified Code(s): E11.9 - Type 2 diabetes mellitus without complications
--- NOTE | 2023-10-23 23:13 | Emergency Department Note ---
ED Visit Note I agree with the diagnosis and management decisions and have been personally involved in the case. IV access was established, laboratory work was obtained and the patient was medicated with IV ceftriaxone. Patient will be evaluated by the hospitalist service for further evaluation and management. Please see Vladimir Solorio PA-C's notes for further details of the history, physical and visit. .
--- NOTE | 2023-10-23 23:49 | Ultrasound Report ---
Exam(s): US VENOUS RIGHT UPPER EXTREMITY EXAM: US Duplex Right Upper Extremity Veins CLINICAL HISTORY: Reason for exam: atraumatic R wrist edema, lymphangitic streaking. TECHNIQUE: Real-time duplex ultrasound scan of the right upper extremity veins integrating B-mode two-dimensional vascular structure, Doppler spectral analysis, color flow Doppler imaging and compression. COMPARISON: No relevant prior studies available. FINDINGS: Deep veins: Unremarkable. No DVT in the internal jugular, subclavian, axillary, or brachial veins. The veins demonstrate normal color flow, are normally compressible, with normal phasic flow and/or augmentation response. Superficial veins: Unremarkable. No thrombus in the visualized basilic and cephalic veins. Soft tissues: No acute findings. IMPRESSION: No evidence of deep vein thrombus. Moderate right wrist soft tissue edema with small fluid collection. Electronically signed by: Padmini Carlton MD 10/23/23 23:47 PM
[2023-10-24] MEDS: ACETAMINOPHEN 325 MG TAB PO STA (00:05)
[2023-10-24] MEDS: SODIUM CHLORIDE 0.9% 500 ML IV SCH (00:07)
[2023-10-24] MEDS ORDERED: DEXTROSE 50% 50 ML SYRINGE IV PRN (02:01)
[2023-10-24] MEDS ORDERED: ACETAMINOPHEN 325 MG TAB PO PRN (02:01)
[2023-10-24] MEDS ORDERED: MELATONIN 3 MG TAB PO PRN (02:01)
[2023-10-24] MEDS ORDERED: GLUCAGON FOR INJ 1 MG VIAL SQ PRN (02:01)
[2023-10-24] MEDS ORDERED: POLYETHYLENE (MIRALAX) 17 GM PACK PO PRN (02:01)
[2023-10-24] MEDS ORDERED: ONDANSETRON INJ 2 MG/ML 2 ML VIAL IV PRN (02:01)
[2023-10-24] MEDS ORDERED: GLUCOSE 40% GEL 15 GM TUBE PO PRN (02:01)
[2023-10-24] MEDS ORDERED: GLUCOSE 10 TAB/TUBE PO PRN (02:01)
[2023-10-24] MEDS ORDERED: CARBOHYDRATES FOR HYPOGLYCEMIA PO PRN (02:01)
[2023-10-24] MEDS: MoRPHine SULFATE 2 MG/ML CARP IV PRN (02:17)
[2023-10-24] MEDS: LANTUS PER UNIT CHARGE SC SCH (02:30)
[2023-10-24] MEDS: DOXYCYCLINE HYCLATE 100 MG in DEXTROSE 5% MINI-B 100 ML IV SCH (02:35)
[2023-10-24] MEDS: PROPRANOLOL HCL 20 MG TAB PO SCH (02:37)
[2023-10-24] MEDS: amLODIPine BESYLATE 5 MG TAB PO SCH (02:37)
[2023-10-24] MEDS: PRIMIDONE 50 MG TAB PO SCH ×2 (02:37→08:41)
[2023-10-24] MEDS: MoRPHine SULFATE 2 MG/ML CARP IV STA (03:05)
[2023-10-24] MEDS: KETOROLAC TROMETHAMINE 15 MG/ML VIAL IV ONE ×3 (03:14→15:43)
[2023-10-24] MEDS ORDERED: Nursing to Pharmacy Communication SCH (03:15)
[2023-10-24] MEDS: SODIUM CHLORIDE 0.9% 1,000 ML IV SCH (05:03)
--- NOTE | 2023-10-24 07:24 | XRay Report ---
XR wrist RT min 3V routine CLINICAL HISTORY: Right wrist pain. COMPARISON: None FINDINGS: No acute fracture within the right wrist is present. There is an old, healed right fifth m etacarpal fracture. Chondrocalcinosis within the TFCC is noted. A calcific density along the radial s tyloid is present. There is right wrist soft tissue swelling. There is mild to moderate osteoarthriti s within several articulations of the right wrist. IMPRESSION: 1. No acute fracture within the right wrist. 2. Mild to moderate osteoarthritis within several articulations of the right wrist. Chondrocalcinosis within the TFCC. 3. Old, healed right fifth metacarpal fracture. 4. Right wrist soft tissue swelling. ACT 112: Negative or not required by law. Electronically signed by: Herrera Moffett M.D. 10/24/2023 7:22 AM
[2023-10-24 08:16] LABS: Basophils # (auto) 0.04 K/uL (0.00-0.20); Basophils % (auto) 0.4 %; Eosinophils # (auto) 0.14 K/uL (0.00-0.50); Eosinophils % (auto) 1.5 %; Hemoglobin 13.9 g/dl (12.0-16.0); Immature Granulocytes # (auto) 0.05 K/uL (0.01-0.20); Immature Granulocytes % (auto) 0.5 %; Lymphocytes # (auto) 1.44 K/uL (1.20-3.40); Lymphocytes % (auto) 15.1 %; Mean Corpuscular Hemoglobin 31.4 pg (25.0-34.0); Mean Corpuscular Hgb Conc 33.9 g/dL (32.0-36.0); Mean Corpuscular Volume 92.6 fL (80.0-100.0); Mean Platelet Volume 8.6 fL (9.4-12.4); Monocytes # (auto) 0.83 K/uL (0.11-0.59); Monocytes % (auto) 8.7 %; Neutrophils # (auto) 7.06 K/uL (1.40-6.50); Neutrophils % (auto) 73.8 %; Platelet Count 264 K/uL (130-400); RDW Coefficient of Variation 12.8 % (11.5-14.5); RDW Standard Deviation 43.3 fL (36.4-46.3); Red Blood Count 4.43 M/uL (4.20-5.40); White Blood Count 9.56 K/ul (4.8-10.8)
[2023-10-24 08:30] LABS: Albumin Globulin Ratio 1.1 (0.9-2); Albumin Level 3.6 gm/dl (3.4-5.0); BUN Creatinine Ratio 26.3 (10-20); Bilirubin,Total 0.5 mg/dl (0.2-1.0); C Reactive Protein 6.01 mg/dl (0-0.5); Calcium 8.8 mg/dl (8.6-10.3); Creatinine Clr Calc Pharmacy 69.3 ml/min; Est GFR (Non-African American) 71.6 ml/min; Globulin 3.3 gm/dl (2.5-4.0); Potassium 3.3 mmol/L (3.5-5.1); Total Protein 6.9 gm/dl (6.0-8.3)
[2023-10-24] MEDS: INSULIN ASPART PER UNIT CHARGE SC SCH (08:35)
[2023-10-24] MEDS: CHLORTHALIDONE 25 MG TAB PO SCH (08:38)
[2023-10-24] MEDS: ASPIRIN 81 MG ECTAB PO SCH (08:38)
[2023-10-24] MEDS: ROSUVASTATIN CALCIUM 20 MG TAB PO SCH (08:39)
[2023-10-24] MEDS: lisinopril 40 MG TAB PO SCH (08:39)
[2023-10-24] MEDS: EZETIMIBE 10 MG TAB PO SCH (08:39)
[2023-10-24] MEDS: MULTIVITAMIN TAB PO SCH (08:40)
[2023-10-24] MEDS: CHOLECALCIFEROL 25 MCG (1000 UNITS) TAB PO SCH (08:40)
[2023-10-24] MEDS: SPIRONOLACTONE 25 MG TAB PO SCH (08:41)
[2023-10-24] MEDS: POTASSIUM CHLORIDE CRTAB 20 MEQ TABCR PO STA (09:16)
[2023-10-24] MEDS: CEFEPIME 2,000 MG in SYRINGE 0 ML IV SCH (11:02)
--- NOTE | 2023-10-24 13:14 | Orthopedic Consultation ---
Date of Consultation October 24, 2023 Assessment & Plan (1) Chondrocalcinosis: I suspect that this represents inflammation rather than infection. Her radiographs are consistent with chondrocalcinosis in the region of the TFCC. Clinically this is more suspicious for a flareup of pseudogout on the radial wri st rather than infection. I recommend a trial of an anti-inflammatory such as IV Toradol if there are no contraindications. Recommendations cock up wrist splint. Ultrasound does suggest small fluid accumulation. However I do not see significant abscess I feel this may represent inflammatory fluid. Given that she has no white count and no significant fever, I do feel she would be stable for discharge. She may follow-up with Dr. Montoya's team upon discharge. Orthopedics will sign off History of Present Illness Reason for Consultation: Right wrist pain and swelling Requesting Physician: Hospitalist Attending Physician: Brenda Callahan MD History of Present Illness This is a 78-year-old female with insidious onset of pain and swelling in the right wrist. Began a few days ago. She has tried rest ice elevation and Tylenol, but not anti-inflammatories. Allergies Allergy/AdvReac Type Severity Reaction Status Date / Time No Known Drug Allergies Allergy Unknown Verified 10/20/23 08:11 Home Medications Medication Instructions Recorded Confirmed Type multivitamin (Daily Multi-Vitamin 1 tab PO QAM 01/21/20 10/24/23 History tablet) lancets 33 gauge (OneTouch Delica #100 ea 07/16/21 10/24/23 Rx Lancets) pen needle, diabetic 31 gauge x #50 ea 01/20/23 10/24/23 Rx 1/4" (Comfort EZ Pen [place]) amlodipine 10 mg tablet 10 mg PO QPM #90 tabs 01/25/23 10/23/23 Rx Sphignometer #1 ea 06/13/23 10/24/23 Rx pen needle, diabetic 31 gauge x #20 ea 06/19/23 10/24/23 Rx 1/4" (Lite Touch Insulin Pen [place]) insulin glargine 100 unit/mL (3 20 unit (0.2 mL) subcut QPM #15 mL 07/03/23 10/24/23 Rx mL) subcutaneous pen (Lantus Solostar U-100 Insulin) blood-glucose meter,continuous #1 ea 07/07/23 10/24/23 Rx (FreeStyle Bianca 3 [place]) blood-glucose sensor (FreeStyle #8 ea 07/07/23 10/24/23 Rx Bianca 3 Sensor device) aspirin 81 mg tablet,delayed 81 mg PO QAM 07/20/23 10/23/23 History release (Ecotrin Low Strength) primidone 50 mg tablet 50 mg PO .COMPLEX #240 tabs 09/18/23 10/24/23 Rx propranolol 20 mg tablet 20 mg PO HS 09/18/23 10/24/23 History semaglutide 1 mg/dose (4 mg/3 mL) 1 mg (0.75 mL) subcut .weekly #3 mL 10/20/23 10/23/23 Rx subcutaneous pen injector (Ozempic) chlorthalidone 25 mg tablet 25 mg PO QAM 10/23/23 10/23/23 History cholecalciferol (vitamin D3) 50 100 mcg PO QAM 10/23/23 10/23/23 History mcg (2,000 unit) capsule (Vitamin D3) empagliflozin 25 mg tablet 25 mg PO QAM 10/23/23 10/23/23 History (Jardiance) ezetimibe 10 mg tablet (Zetia) 10 mg PO QAM 10/23/23 10/23/23 History rosuvastatin 40 mg tablet (Crestor) 40 mg PO QAM 10/23/23 10/23/23 History lisinopril 40 mg tablet 40 mg PO QAM 10/24/23 10/24/23 History spironolactone 25 mg tablet 25 mg PO QAM 10/24/23 10/24/23 History Patient History Medical History Cataract (lens) fragments in eye following cataract surgery Chronic constipation Vitamin D deficiency Diabetes mellitus, type 2 Osteoarthritis Hyperlipidemia Gout no meds Surgical History History of colonoscopy Ingrown toenail of right foot removal History of tooth extraction History of tonsillectomy and adenoidectomy History of right knee joint replacement Family History Father , age 55 Family history of diabetes mellitus Myocardial infarction Hypertension Mother Coronary heart disease had CABG and from post-op complications; age 64 Hypertension Other No family history of adverse response to anesthesia Denies family history of Stroke Social History Smoking Status: Never smoker Second Hand Exposure: No ( smoked/father smoked); Do You Dip or Chew Tobacco: No; Hx Alcohol Use: No Hx Substance Use: No Preferred Language: [place] Communication Ability: Effective Hearing Ability: Normal Ingot Stripper Required: No Beliefs That Will Affect Care: None marital status: Current Living Situation: Spouse current occupational status: retired current occupation: did [employer] work in [employer] for 30 years How many Children do You have: 2 Other Information That Helps Us Care for You: No other: 2 children Feels Safe at Home: Yes Safety Concerns: Feels Safe At This Time Seatbelt Use: always Sunscreen Use: No Assistive Devices: Cane and Glasses Physical Exam Musculoskeletal: Right upper extremity exam: She has mild swelling over the dorsal and radial wrist. She has a supple joint without evidence of septic joint. I can passively range her wrist without significant discomfort. She has full range of motion of the fingers. Negative knaval signs. I do not detect any palpable abscess or fluctuance. No streaking erythema. Results & Data Vital Signs (Past 12 Hours) Vital Signs Temp Pulse Resp BP Pulse Ox O2 Del Method O2 Flow Rate 10/24/23 08:37 83 138/79 10/24/23 07:30 Nasal Cannula 1 10/24/23 07:17 36.5 C 76 16 143/83 H 95 Nasal Cannula 1 10/24/23 03:10 174/91 H 10/24/23 02:30 Nasal Cannula 2 10/24/23 02:30 36.6 C 97 H 16 184/101 H 97 Nasal Cannula 2
[2023-10-24] MEDS ORDERED: KETOROLAC 30 MG/ML VIAL IV ONE (13:25)
--- NOTE | 2023-10-24 15:42 | Hospitalist Progress Note ---
Date of Service October 24, 2023 Assessment & Plan (1) Cellulitis: (2) Lymphangitis: (3) Parkinson disease: (4) Essential tremor: (5) Benign positional vertigo: (6) Diabetes: (7) Benign essential hypertension: (8) Hypercholesterolemia: Mitchel Segundo is a 78F w/ PMH of HTN, Parkinson disease w/ tremor, osteoarthritis, BPPV, and T2DM w/ neuropathy who presented for evaluation of wrist pain. No known provoking factor. 1. Right-wrist pain - Initially thought on admission to be cellulitis w/ lymphangitis due to appearance, pt now <24hrs into broad spectrum abx. Also received toradol overnight. Exam seems significantly improved this AM and she remains hemodynamically stable, not endorsing systemic sx. - Wrist XR w/o acute Fx, chondrocalcinosis of the TFCC - Venous Doppler No evidence of deep vein thrombus. Moderate right wrist soft tissue edema with small fluid collection. - Mild leukocytosis w/ elevated CRP and negative procalcitonin on presentation. - Lyme screen negative - Blood cx pending - S/p Cefepime in ED, continued on admission given DM hx, will cover for MRSA w/ Doxycycline, MRSA nares negative - Pain mgmt w/ Tylenol for Pain 1-10 and Morphine for breakthrough, adjust regimen PRN - Appreciate ortho consult: Chondrocalcinosis of TFCC is consistent with chronic changes of pseudogout, suggesting her pain may be acute flare of this and feel her presentation favors inflammatory over infectious etiology. Will trial toradol and monitor prior to stopping abx as per ortho recommendation. - Cock up wrist splint for comfort Chronic Conditions - HTN: continue home Amlodipine, chlorthalidone, and lisinopril - PD/essential tremor: continue home primidone and propranolol - T2DM: home medications held, continue Lantus, SSI inpatient - HLD: continue home zetia and crestor FEN: HH/DM2 IVF: None Code status: Full Code DVT ppx: Ambulation Isolation: None Dispo:Med/Surg Admission and Anticipated Discharge Date Admission Date: October 24, 2023 Subjective Pt seen and examined at the bedside this AM. R-sided wrist pain is somewhat improved to 8/10 severity today (compared to 10/10 yesterday) and is noticing some more ROM. States it looks slightly less red to her today. Feeling well otherwise. She denies any fevers/chills/SOB/chest pains. Review of Systems Review of Systems: As per HPI. Physical Exam Physical Exam: Gen: NAD, alert, interactive HEENT: Supple, no LAD, no thyromegaly, no JVD Resp:Non-labored, no wheezing/rhonchi/rales, CTAB CV:RRR, normal S1/S2, no M/R/G Lower Extr: no edema Upper Extr: 2+ dp bilaterally, good capillary refill, sensation intact bilaterally, no LAD hand to axilla bilaterally - R hand strength 4/5 (d/t pain), increa sed swelling to the radial aspect of the wrist joint w/ very mild, diffuse erythema that is not well demarcated, mildly ttp over distal radius Results & Data Results & Data Vital Signs (Past 12 Hours) Vital Signs Temp Pulse Resp BP Pulse Ox O2 Del Method O2 Flow Rate 10/24/23 15:11 37.1 C 85 16 140/83 93 Room Air 10/24/23 08:37 83 138/79 10/24/23 07:30 Nasal Cannula 1 10/24/23 07:17 36.5 C 76 16 143/83 H 95 Nasal Cannula 1 (6) Diabetes Diabetes mellitus complication status: without complication Diabetes mellitus chcf insulin use: without exterminator helper use Diabetes mellitus type: type 2 Qualified Code(s): E11.9 - Type 2 diabetes mellitus without complications
--- NOTE | 2023-10-24 16:40 | Discharge Summary ---
Date of Service October 24, 2023 Admission HPI Per Admitting Provider Ratna is a 78F w/ PMH of HTN, Parkinson disease w/ tremor, osteoarthritis, BPPV, and T2DM w/ neuropathy who presented for evaluation of wrist pain. Patient notes that yesterday evening (10/22) she began to have an aching sensation in her right wrist (dominant hand), but that today, it progressed into significant pain at the joint with swelling and redness. She has never had anything similar occur. She has no history of trauma to the joint, abrasions, overuse, or bug bites. She does note she was outside more this past weekend. 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 Patient notes that she has had subjective fever/chills over the last day, but denies any chest pain, dyspnea, nausea, abdominal pain, or bowel/bladder changes. She notes that she was recently started on Jardiance for her DM and that her A1c has gone up slightly (to 8.8), but otherwise none of her medications have changed. She has tried elevation, ice, and compression at home without benefit, thus she presented to the ED. ED Course: Morphine, Cefepime Admission Exam Per Admitting Provider Gen: NAD, alert, interactive HEENT: Supple, no LAD, no thyromegaly, no JVD Resp:Non-labored, no wheezing/rhonchi/rales, CTAB CV:RRR, normal S1/S2, no M/R/G Lower Extr: 2+ dp bilaterally, no edema Upper Extr: 2+ dp bilaterally, sensation intact bilaterally, no LAD hand to axilla bilaterally - R hand strength 4/5 (d/t pain), increased swelling to the radial aspect of the wrist joint w/ overlying erythema - Demarcated line of erythema ascending from the R wrist to the elbow Principal Diagnosis pseudogout Discharge Exam Gen: NAD, alert, interactive HEENT: Supple, no LAD, no thyromegaly, no JVD Resp:Non-labored, no wheezing/rhonchi/rales, CTAB CV:RRR, normal S1/S2, no M/R/G Lower Extr: no edema Upper Extr: 2+ dp bilaterally, good capillary refill, sensation intact bilaterally, no LAD hand to axilla bilaterally - R hand strength 4/5 (d/t pain), increased swelling to the radial aspect of the wrist joint w/ very mild, diffuse erythema that is not well demarcated, mildly ttp over distal radius Discharge Data Allergies Allergy/AdvReac Type Severity Reaction Status Date / Time No Known Drug Allergies Allergy Unknown Verified 10/20/23 08:11 Consultations 10/23/23 22:23 ED Decision to Admit Stat 10/24/23 09:46 Consult Orthopedic Surgery Routine Ordered Studies 10/23/23 20:57 US venous doppler UE RT Stat Hospital Course (1) Cellulitis: (2) Lymphangitis: (3) Parkinson disease: (4) Essential tremor: (5) Benign positional vertigo: (6) Diabetes: (7) Benign essential hypertension: (8) Hypercholesterolemia: Mitchel Segundo is a 78F w/ PMH of HTN, Parkinson disease w/ tremor, osteoarthritis, BPPV, and T2DM w/ neuropathy who presented for evaluation of right wrist pain. Pseudogout - Wrist XR w/o acute Fx, mild-moderate osteoarthritis, chondrocalcinosis within the TFCC, soft tissue swelling, old,healed 5th metacarpal fracture - Venous Doppler was without evidence of DVT, Moderate right wrist soft tissue edema with small fluid collection. - Received cefepime and doxycycline during admission - Lyme screen negative - Orthopedic hand surgery consulted, felt to be pseudogout and not infectious in origin, antibiotics d/c at discharge - Wrist splinted and toradol IV given with good relief - Discharged with 15mg meloxicam PO daily and instructions to have close follow up with PCP and orthopedics Chronic Conditions - HTN: continue home Amlodipine, chlorthalidone, and lisinopril - PD/essential tremor: continue home primidone and propranolol - T2DM: continue Lantus, Jardiance, semaglutide. - HLD: continue home zetia and crestor Total Time Total Time Spent Total Time Spent (In Minutes): see attending documentation Discharge Plan Discharge Items Patient Disposition: Home - Self-Care Reason For Visit: CELLULITIS, LYMPHANGITIS Discharge Diagnosis: Pseudogout Condition on Discharge: Good Activity: Per Instructions section Non-emergency contact: Primary Care Provider Call non-emergency contact if: you have any medication questions, your symptoms worsen, your pain is not controlled, your pain is worsening and you have a fever Follow-up/Referrals: Pool Calixto MD [Primary Care Provider] - 10/31/23 10:30 am Doroteo Montoya MD [Physician] - 10/26/23 10:40 am Diet: Heart Healthy Addtl Attending Provider Instructions: You were admitted to the hospital for pain in your wrist. You were treated with pain medicine and a splint. You were seen by an orthopedic surgeon who felt that your pain was not caused by an infection but by a condition called pseudogout. This is different from traditional gout but is caused by deposition of crystals in your joint. The treatment for this is anti-inflammatories and splinting. We will send a medication called meloxicam to your pharmacy. You will take this medication once daily. You can also use tylenol in addition to the meloxicam. A discharge summary will be sent to your primary care physician to ensure continuity of care. Please bring this discharge summary with you to your next office appointment so that your provider can review it at that time. Follow-up appointments: Make a follow-up appointment with your PCP within the next week. It is very important that you follow up with them shortly after discharge from the hospital. You should also follow up with Dr. Montoya, the orthopedic surgeon that you saw in the hospital. His office can be reached at Keep all your follow-up appointments as already scheduled. If you cannot make an appointment, notify your provider. Medications: Your medication list has been reviewed and reconciled upon discharge to ensure accuracy and continuity of care. An updated list of all your medications is included with your hospital discharge paperwork. Please review this list closely, and make note of any changes. We sent a new medication called meloxicam to your pharmacy. Take meloxicam (15mg) one tablet daily until you follow up with your PCP or orthopedics. If you have any issues filling these prescriptions, please call [phone] and ask to leave a message for Dr. Mark Estrada. Take your medications as instructed; do not skip a dose of your medicines. Make sure all of your doctors know every medicine you are taking (including ofno-brj-kiyhhdc medicines, vitamins, and supplements). Call your primary care provider before taking any new medicines (including niee-rnj-msyqcmn medicines, vitamins, and supplements), because some of these may interact with your current medications, or may make your symptoms worse. Tell your primary care provider if you cannot afford your medications. CONTACT YOUR PRIMARY CARE PROVIDER if you experience any of the following: Increase in your pain Increased redness, swelling, or fevers Difficulty following your treatment plan, or difficulty taking medications CALL 911 OR GO TO THE EMERGENCY DEPARTMENT if you experience any of the following: Sudden, severe abdominal pain or nausea/vomiting Severe chest pain, or chest pain that radiates (moves) to your jaw or arm Sudden, severe shortness of breath or difficulty breathing Thank you for allowing us to participate in your care. Pending Studies at Discharge: No Stand-Alone Forms: My [facility] Medications and DC Order Prescriptions: New meloxicam 15 mg tablet 15 mg PO DAILY Qty: 30 0RF Continued (DME) lancets [OneTouch Delica Lancets] 33 gauge misc See Rx Instructions .Route Qty: 100 3RF Rx Instructions: check once daily As directed DX:E11.9 (DME) pen needle, diabetic [Comfort EZ Pen [place]] 31 gauge x 1/4" needle See Rx Instructions .Route Qty: 50 3RF Rx Instructions: As directed amlodipine 10 mg tablet 10 mg PO QPM Qty: 90 3RF (DME) Sphignometer large cuff See Rx Instructions .Route .MEDSUPPLY Qty: 1 0RF Rx Instructions: As directed (DME) pen needle, diabetic [Lite Touch Insulin Pen [place]] 31 gauge x 1/4" needle See Rx Instructions .Route Qty: 20 3RF Rx Instructions: As directed weekly for Ozempic insulin glargine [Lantus Solostar U-100 Insulin] 100 unit/mL (3 mL) insulin pen 20 unit subcut QPM Qty: 15 2RF (DME) FreeStyle Bianca 3 [place] Misc See Rx Instructions .Route Qty: 1 0RF Rx Instructions: As directed (DME) FreeStyle Bianca 3 Sensor Device See Rx Instructions .Route Qty: 8 3RF Rx Instructions: change sensor every 14 days primidone 50 mg tablet 50 mg PO .COMPLEX Qty: 240 5RF Rx Instructions: 50 mg orally 2 tabs in the morning, 2 tabs in the afternoon, 4 tabs in the evening multivitamin [Daily Multi-Vitamin] Tablet 1 tab PO QAM propranolol 20 mg tablet 20 mg PO HS Ozempic 1 mg/dose (4 mg/3 mL) pen injector 1 mg subcut .weekly Qty: 3 5RF Rx Instructions: order just changed and pharmacy doesnt have it aspirin [Ecotrin Low Strength] 81 mg tablet,delayed release (DR/EC) 81 mg PO QAM chlorthalidone 25 mg tablet 25 mg PO QAM Jardiance 25 mg tablet 25 mg PO QAM cholecalciferol (vitamin D3) [Vitamin D3] 50 mcg (2,000 unit) Capsule 100 mcg PO QAM ezetimibe [Zetia] 10 mg tablet 10 mg PO QAM rosuvastatin [Crestor] 40 mg tablet 40 mg PO QAM lisinopril 40 mg tablet 40 mg PO QAM spironolactone 25 mg tablet 25 mg PO QAM Discharge Orders: Discharge Order (Routine); Ordered 10/24/23 Ordered By: Mark Estrada Admission Data Admit Date/Time: 10/24/23 01:03 Attending Provider: Brenda Callahan Admit Provider: Viraj Alba Primary Care Provider: Pool Calixto Other Providers: Parminder Najera Christopher J. Other Interventions: Discharge Summary Assessment (RN) Last Done: 10/24/23 17:35 Supervising Physician Co-Signing Physician Notes Attending Physician Supervision Note: I independently interviewed and examined the patient and verified the gudino history and physical, reviewed labs and image studies and agree with findings and care plan noted above. Resident Activity Tracking Resident Involvement: Resident Care Provided Care Provided: Adult Hospital Medicine
--- NOTE | 2023-10-24 17:36 | Communication Note ---
Date of Service: October 24, 2023 By CMS guidelines, a determination that the admission or continued stay is not medically necessary has been made by a member of the UR committee and a physi howard for this hospital stay, therefore a Code 44 will be completed and the Inpatient admission will be changed to outpatient.
--- NOTE | 2023-10-25 00:51 | Billing Data ---
Date of Service October 25, 2023 Coding Level of Care Code 76407 INT INP/OBS CARE
--- NOTE | 2023-10-25 08:34 | Communication Note ---
Date of Service: October 25, 2023 By CMS guidelines, a determination that the admission or continued stay is not medically necessary has been made by a member of the UR committee and a physici an for this hospital stay, therefore a Code 44 will be completed and the Inpatient admission will be changed to outpatient.
== END 2023-10-24 18:00 | disposition home or self-care (01) ==
LOC: ED 20:13 → 3E 10-24 01:03 → INTOOBSV 10-24 01:03 → SUATTDRO 10-24 01:03 → 3E 10-24 01:42